=== PATIENT | male | born 1960 | race Caucasian/White ===

== ENCOUNTER 2019-01-02 21:20 | Observation (INO) | payer OTHER ==
[2019-01-02] MEDS ORDERED: Sodium Chloride 0.9% 2.5 ML Syringe FLUSH PRN (21:30)
[2019-01-02] MEDS ORDERED: Sodium Chloride 0.9% 10 ML Syringe FLUSH PRN (21:30)
[2019-01-02] MEDS ORDERED: Sodium Chloride 0.9% 1,000 ML IV SCH (21:30)
[2019-01-02] MEDS ORDERED: Ketorolac 30 MG/ML SDV IVPUSH ONE (21:30)
--- NOTE | 2019-01-02 21:32 | EDM.PDOC ---
ED HPI GENERAL MEDICAL PROBLEM - General Stated Complaint: CHEST PAIN Time Seen by Provider: 01/02/19 21:25 - History of Present Illness INITIAL COMMENTS - FREE TEXT/NARRATIVE: HISTORY AND PHYSICAL: History of present illness: Patient is a 58-year-old white male presents with shortness of breath 2 days states also had some right upper back pain and feels he may have strained himself and that might be the etiology of both back pain and shortness of breath he is a smoker he denies any history of known coronary artery disease denies prior stroke or other concern. This is worse with movement Review of systems: As per history of present illness and below otherwise all systems reviewed and negative. Past medical history: As per history of present illness and as reviewed below otherwise noncontributory. Surgical history: As per history of present illness and as reviewed below otherwise noncontributory. Social history: No reported history of drug or alcohol abuse. Family history: As per history of present illness and as reviewed below otherwise noncontributory. Physical exam: HEENT: Atraumatic, normocephalic, pupils reactive, negative for conjunctival pallor or scleral icterus, mucous membranes moist, throat clear, neck supple, nontender, trachea midline. Lungs: Slightly coarse bilaterally, breath sounds equal bilaterally, chest nontender. Heart: S1S2, regular, negative for clicks, rubs, or JVD. Abdomen: Soft, nondistended, nontender. Negative for masses or hepatosplenomegaly. Negative for costovertebral tenderness. Pelvis: Stable nontender. Genitourinary: Deferred. Rectal: Deferred. Extremities: Atraumatic, negative for cords or calf pain. Neurovascular unremarkable. Neuro: Awake, alert, oriented. Cranial nerves II through XII unremarkable. Cerebellum unremarkable. Motor and sensory unremarkable throughout. Exam nonfocal. Diagnostics: CBC CMP BMP d-dimer troponin chest x-ray EKG Therapeutics: IV O2 monitor Toradol 30 mg IV Impression: #1 dyspnea #2 upper back pain Definitive disposition and diagnosis as appropriate pending reevaluation and review of above. - Related Data Allergies Allergy/AdvReac Type Severity Reaction Status Date / Time No Known Allergies Allergy Verified 01/02/19 21:31 Home Meds: Home Meds . [No Known Home Meds] 01/02/19 [History] Past Medical History Other HEENT History: wears glasses Cardiovascular History: Reports: None Respiratory History: Reports: None Gastrointestinal History: Reports: None Genitourinary History: Reports: None Musculoskeletal History: Reports: Fracture Other Musculoskeletal History: hx of alfredo fx legs and fx foot Neurological History: Reports: Concussion Psychiatric History: Reports: None Endocrine/Metabolic History: Reports: Obesity/BMI 30+ Hematologic History: Reports: None Immunologic History: Reports: None Oncologic (Cancer) History: Reports: None Dermatologic History: Reports: None - Past Surgical History Head Surgeries/Procedures: Reports: None HEENT Surgical History: Reports: Tonsillectomy Cardiovascular Surgical History: Reports: None Respiratory Surgical History: Reports: None GI Surgical History: Reports: None Male Surgical History: Reports: None Endocrine Surgical History: Reports: None Neurological Surgical History: Reports: None Musculoskeletal Surgical History: Reports: None Oncologic Surgical History: Reports: None Dermatological Surgical History: Reports: None ED ROS GENERAL - Review of Systems Review Of Systems: ROS reveals no pertinent complaints other than HPI. ED EXAM, GENERAL - Physical Exam Exam: See Below (The dictation) Course - Vital Signs Last Recorded V/S: Last Vital Signs Temp 36.7 C 01/02/19 21:31 Pulse 85 01/02/19 23:49 Resp 18 01/02/19 23:49 BP 152/81 H 01/02/19 23:49 Pulse Ox 96 01/02/19 23:49 - Orders/Labs/Meds Orders: Active Orders 24 hr Category Date Time Status Cardiac Monitoring [RC] . DIRECTED Care 01/02/19 21:30 Active EKG Documentation Completion [RC] STAT Care 01/02/19 21:30 Active Oxygen Therapy, ED [RC] ASDIRECTED Care 01/02/19 21:30 Active Pulse Oximetry [RC] ASDIRECTED Care 01/02/19 21:30 Active Chest PE [Ang Chest] [CT] Stat Exams 01/02/19 23:12 Taken B-NATRIURETC PEPTD [REF] Stat Lab 01/02/19 21:30 Received Sodium Chloride 0.9% [Normal Saline] 1,000 ml Med 01/02/19 21:30 Active IV STAT Sodium Chloride 0.9% [Saline Flush] Med 01/02/19 21:30 Active 10 ml FLUSH ASDIRECTED PRN Sodium Chloride 0.9% [Saline Flush] Med 01/02/19 21:30 Active 2.5 ml FLUSH ASDIRECTED PRN Saline Lock Insert [OM.PC] Stat Oth 01/02/19 21:29 Ordered Medication Orders Sodium Chloride (Normal Saline) 1,000 mls @ 125 mls/hr IV STAT MARCELA Last Admin: 01/02/19 21:43 Dose: 125 mls/hr Sodium Chloride (Saline Flush) 10 ml FLUSH ASDIRECTED PRN PRN Reason: Keep Vein Open Sodium Chloride (Saline Flush) 2.5 ml FLUSH ASDIRECTED PRN PRN Reason: Keep Vein Open Labs: Laboratory Tests 01/02/19 01/02/19 01/02/19 Range/Units 21:30 21:30 21:30 WBC 13.26 H (4.0-11.0) K/uL RBC 5.21 (4.50-5.90) M/uL Hgb 16.8 (13.0-17.0) g/dL Hct 48.9 (38.0-50.0) % MCV 93.9 (80.0-98.0) fL MCH 32.2 H (27.0-32.0) pg MCHC 34.4 (31.0-37.0) g/dL RDW Std Deviation 45.2 (28.0-62.0) fl RDW Coeff of [place] 13 (11.0-15.0) % Plt Count 344 (150-400) K/uL MPV 10.00 (7.40-12.00) fL Neut % (Auto) 68.3 (48.0-80.0) % Lymph % (Auto) 16.7 (16.0-40.0) % [place] % (Auto) 13.1 (0.0-15.0) % Eos % (Auto) 1.7 (0.0-7.0) % Baso % (Auto) 0.2 (0.0-1.5) % Neut # (Auto) 9.1 H (1.4-5.7) K/uL Lymph # (Auto) 2.2 (0.6-2.4) K/uL [place] # (Auto) 1.7 H (0.0-0.8) K/uL Eos # (Auto) 0.2 (0.0-0.7) K/uL Baso # (Auto) 0.0 (0.0-0.1) K/uL Nucleated RBC % 0.0 /100WBC Nucleated RBCs # 0 K/uL INR 0.90 D-Dimer, Quantitative 1.34 H (0.0-0.50) mg/L FEU Sodium 140 (136-148) mmol/L Potassium 3.9 (3.5-5.1) mmol/L Chloride 102 (98-107) mmol/L Carbon Dioxide 28.6 (21.0-32.0) mmol/L BUN 13 (7.0-18.0) mg/dL Creatinine 1.1 (0.8-1.3) mg/dL Est Cr Clr Drug Dosing 71.41 mL/min Estimated GFR (MDRD) > 60.0 ml/min Glucose 121 H (74-106) mg/dL Calcium 9.1 (8.5-10.1) mg/dL Total Bilirubin 0.3 (0.2-1.0) mg/dL AST 14 L (15-37) IU/L ALT 26 (14-63) IU/L Alkaline Phosphatase 78 (46-116) U/L Troponin I < 0.050 (0.000-0.056) ng/mL Total Protein 7.5 (6.4-8.2) g/dL Albumin 3.4 (3.4-5.0) g/dL Globulin 4.1 H (2.6-4.0) g/dL Albumin/Globulin Ratio 0.8 L (0.9-1.6) Meds: Medications Generic Name Dose Route Start Last Admin Trade Name Freq PRN Reason Stop Dose Admin Sodium Chloride 1,000 mls @ 125 mls/hr 01/02/19 21:30 01/02/19 21:43 Normal Saline IV 125 mls/hr STAT MARCELA Administration Sodium Chloride 10 ml 01/02/19 21:30 Saline Flush FLUSH ASDIRECTED PRN Keep Vein Open Sodium Chloride 2.5 ml 01/02/19 21:30 Saline Flush FLUSH ASDIRECTED PRN Keep Vein Open Discontinued Medications Generic Name Dose Route Start Last Admin Trade Name Freq PRN Reason Stop Dose Admin Iopamidol 100 ml 01/02/19 23:09 01/02/19 23:24 Isovue-370 (76%) IVPUSH 01/02/19 23:10 100 ml ONETIME ONE Administration Ketorolac Tromethamine 30 mg 01/02/19 21:30 01/02/19 21:48 Toradol IVPUSH 01/02/19 21:31 30 mg ONETIME ONE Administration Departure - Departure Time of Disposition: 00:51 Disposition: Refer to Observation Condition: Good Clinical Impression: Pneumonia - Discharge Information Referrals: PCP,None [Primary Care Provider] - - My Orders Last 24 Hours: My Active Orders 01/02/19 21:29 Saline Lock Insert [OM.PC] Stat 01/02/19 21:30 Cardiac Monitoring [RC] . DIRECTED EKG Documentation Completion [RC] STAT Oxygen Therapy, ED [RC] ASDIRECTED Pulse Oximetry [RC] ASDIRECTED B-NATRIURETC PEPTD [REF] Stat Sodium Chloride 0.9% [Normal Saline] 1,000 ml IV STAT Sodium Chloride 0.9% [Saline Flush] 10 ml FLUSH ASDIRECTED PRN Sodium Chloride 0.9% [Saline Flush] 2.5 ml FLUSH ASDIRECTED PRN 01/02/19 23:12 Chest PE [Ang Chest] [CT] Stat - Assessment/Plan Last 24 Hours: My Active Orders 01/02/19 21:29 Saline Lock Insert [OM.PC] Stat 01/02/19 21:30 Cardiac Monitoring [RC] . DIRECTED EKG Documentation Completion [RC] STAT Oxygen Therapy, ED [RC] ASDIRECTED Pulse Oximetry [RC] ASDIRECTED B-NATRIURETC PEPTD [REF] Stat Sodium Chloride 0.9% [Normal Saline] 1,000 ml IV STAT Sodium Chloride 0.9% [Saline Flush] 10 ml FLUSH ASDIRECTED PRN Sodium Chloride 0.9% [Saline Flush] 2.5 ml FLUSH ASDIRECTED PRN 01/02/19 23:12 Chest PE [Ang Chest] [CT] Stat
[2019-01-02 22:00] LABS: CHLORIDE,CL 102 mmol/L (98-107); SODIUM,NA 140 mmol/L (136-148)
--- NOTE | 2019-01-02 22:23 | CR ---
INDICATION: pain/sob COMPARISON: None. FINDINGS: Single portable AP view of the chest demonstrates dense consolidation in the right lower lung. Additional linear opacity in the right mid lung, likely scarring. Patchy densities at the left lung base, consistent with atelectasis. Cardiomediastinal silhouette is obscured. No pneumothorax. Visualized osseous structures are unremarkable. IMPRESSION: Dense consolidation in the right lower lung. Differential considerations include atelectasis and pneumonia with an associated effusion. Dictated by Kalpesh Howard MD @ 01/02/2019 10:22:00 PM Dictated by: Kalpesh Howard MD @ 01/02/2019 22:22:07 (Electronically Signed)
[2019-01-02] MEDS ORDERED: Iopamidol 755 Mg/ML 100 ML Bottle IVPUSH ONE (23:09)
[2019-01-03] MEDS ORDERED: cefTRIAXone 1 GM in Premix Bag 1 BAG IV ONE (00:52)
[2019-01-03] MEDS ORDERED: Azithromycin 500 MG in Sodium Chloride 0.9% 250 ML IV ONE (00:54)
[2019-01-03] MEDS ORDERED: Ondansetron 4 MG/2 ML SDV IVPUSH PRN (01:53)
[2019-01-03] MEDS ORDERED: Acetaminophen 325 MG Tab PO PRN (01:53)
[2019-01-03 06:46] LABS: CHLORIDE,CL 104 mmol/L (98-107); SODIUM,NA 140 mmol/L (136-148)
--- NOTE | 2019-01-03 07:58 | PCM.HP ---
H&P History of Present Illness - General Date of Service: 01/03/19 Admit Problem/Dx: Admission Diagnosis/Problem Admission Diagnosis/Problem Pneumonia Source of Information: Patient History Limitations: Reports: No Limitations - History of Present Illness Initial Comments - Free Text/Narative: This 58 year old male with pmh of tobacco abuse presented to the ED with complaints of R sided upper back pain, coughing and not feeling well. He reports about 2 days ago he felt like his R lung was full and started coughing. He has productive cough, sinus congestion and shortness of breath. He denies fevers or chills. No chest pain or palpitations. no abdominal pain or urinary concerns. No black or bloody BMs. he reports when he tried doing lung exercises to loose whatever was in his lungs, he then started experiencing the back pain. He reports he was recently seen by a provider for his new onset headaches and he was also at that time place on antibiotics, but doesn't remember why or what kind. He is a smoker, 1 ppd, rare alcohol use and no recreational drug use. He denies HTN or DM, but reports his BP has elevated from previous times. he reports in the last year he has put on at least 15 lbs after not working in an active job. In the ED leukocytosis 13, 260. BMP WNL, BS slightly elevated 120s. D Dimer 1.34. BP 130-150/70-80s. RA oxygen, 94%. CXR dense consolidation RUL with possible effusion. CT angion obtained due to d dimer elevated, this was non diagnostic for PE due to imaging and contrast timing, patchy atelectasis and RLL infiltrate with small R sided pleural effusion. He was treated with Toradol for pain along with Rocephin and Azithromycin for CAP. He will be admitted observation for CAP. PCP, Dr Garcia Was recently on Azithromyin, 12/03 for sinus congestion and headache Right Back Pain Score (Numeric/FACES): 10 - Related Data Allergies/Adverse Reactions: Allergies Allergy/AdvReac Type Severity Reaction Status Date / Time No Known Allergies Allergy Verified 01/02/19 21:31 Home Medications: Home Meds . [No Known Home Meds] 01/02/19 [History] Past Medical History Other HEENT History: wears glasses Cardiovascular History: Reports: Hypertension (was on meds in the past, but off after losing weight. Now he has noticed BPs are up again after weight gain.). Denies: Afib, Blood Clots/VTE/DVT, CAD, [place] Respiratory History: Reports: Sleep Apnea (has pending sleep study ordered by PCP due to new headaches.). Denies: Asthma, COPD, PE Gastrointestinal History: Reports: None. Denies: GERD Genitourinary History: Reports: None Musculoskeletal History: Reports: Fracture Other Musculoskeletal History: hx of alfredo fx legs and fx foot Neurological History: Reports: Concussion Psychiatric History: Reports: None Endocrine/Metabolic History: Reports: Obesity/BMI 30+. Denies: Diabetes, Type II, Hypothyroidism Hematologic History: Reports: None Immunologic History: Reports: None Oncologic (Cancer) History: Reports: None Dermatologic History: Reports: None - Infectious Disease History Infectious Disease History: Reports: Chicken Pox - Past Surgical History Head Surgeries/Procedures: Reports: None HEENT Surgical History: Reports: Tonsillectomy Cardiovascular Surgical History: Reports: None Respiratory Surgical History: Reports: None GI Surgical History: Reports: None Male Surgical History: Reports: None Endocrine Surgical History: Reports: None Neurological Surgical History: Reports: None Musculoskeletal Surgical History: Reports: None Oncologic Surgical History: Reports: None Dermatological Surgical History: Reports: Other (See Below) (lipoma removal) Social & Family History - Family History Family Medical History: Noncontributory - Tobacco Use Smoking Status *Q: Current Every Day Smoker Years of Tobacco use: 40 Packs/Tins Daily: 1 Used Tobacco, but Quit: No Smoking Cessation Information Provided To Patient: Yes - Caffeine Use Caffeine Use: Reports: Coffee - Alcohol Use Days Per Week of Alcohol Use: 1 Number of Drinks Per Day: 3 Total Drinks Per Week: 3 - Recreational Drug Use Recreational Drug Use: No - Living Situation & Occupation Living situation: Reports: Occupation: Employed H&P Review of Systems - Review of Systems: Review Of Systems: See Below General: Reports: Malaise, Fatigue. Denies: Fever, Chills HEENT: Reports: Headaches (new onset, past 3 months) Pulmonary: Reports: No Symptoms, Shortness of Breath, Wheezing, Pleuritic Chest Pain, Cough, Sputum. Denies: Hemoptysis Cardiovascular: Reports: No Symptoms. Denies: Chest Pain, Edema Gastrointestinal: Reports: No Symptoms. Denies: Abdominal Pain, Black Stool, Bloody Stool, Nausea, Vomiting Genitourinary: Reports: No Symptoms. Denies: Dysuria, Frequency, Burning Musculoskeletal: Reports: No Symptoms. Denies: Neck Pain Psychiatric: Reports: No Symptoms Neurological: Reports: No Symptoms Hematologic/Lymphatic: Reports: No Symptoms Immunologic: Reports: No Symptoms Exam - Exam Exam: See Below - Vital Signs Vital Signs: Last Vital Signs Temp 98.2 F 01/03/19 04:00 Pulse 90 01/03/19 04:00 Resp 20 01/03/19 04:00 BP 153/88 H 01/03/19 04:00 Pulse Ox 94 L 01/03/19 04:00 Weight: 96.207 kg - Exam General: Alert, Oriented, Cooperative HEENT: Conjunctiva Clear, Mucosa Moist & [place], Pupils Equal Neck: Supple, Trachea Midline Lungs: Decreased Breath Sounds (R lung olson), Wheezing. No: Normal Respiratory Effort (dyspnea with dpeech) Cardiovascular: Regular Rate, Regular Rhythm, Normal S1, Normal S2 GI/Abdominal Exam: Normal Bowel Sounds, Soft, Non-Tender, No Organomegaly, No Mass Extremities: Normal Inspection, Normal Range of Motion, Non-Tender, No Pedal Edema Neuro Extensive - Mental Status: Alert, Oriented x3 Neuro Extensive - Motor, Sensory, Reflexes: CN II-XII Intact Psychiatric: Alert, Normal Affect, Normal Mood - Patient Data Lab Results Last 24 hrs: Laboratory Results - last 24 hr 01/02/19 01/02/19 01/02/19 Range/Units 21:30 21:30 21:30 WBC 13.26 H (4.0-11.0) K/uL RBC 5.21 (4.50-5.90) M/uL Hgb 16.8 (13.0-17.0) g/dL Hct 48.9 (38.0-50.0) % MCV 93.9 (80.0-98.0) fL MCH 32.2 H (27.0-32.0) pg MCHC 34.4 (31.0-37.0) g/dL RDW Std Deviation 45.2 (28.0-62.0) fl RDW Coeff of [place] 13 (11.0-15.0) % Plt Count 344 (150-400) K/uL MPV 10.00 (7.40-12.00) fL Neut % (Auto) 68.3 (48.0-80.0) % Lymph % (Auto) 16.7 (16.0-40.0) % [place] % (Auto) 13.1 (0.0-15.0) % Eos % (Auto) 1.7 (0.0-7.0) % Baso % (Auto) 0.2 (0.0-1.5) % Neut # (Auto) 9.1 H (1.4-5.7) K/uL Lymph # (Auto) 2.2 (0.6-2.4) K/uL [place] # (Auto) 1.7 H (0.0-0.8) K/uL Eos # (Auto) 0.2 (0.0-0.7) K/uL Baso # (Auto) 0.0 (0.0-0.1) K/uL Nucleated RBC % 0.0 /100WBC Nucleated RBCs # 0 K/uL INR 0.90 D-Dimer, Quantitative 1.34 H (0.0-0.50) mg/L FEU Sodium 140 (136-148) mmol/L Potassium 3.9 (3.5-5.1) mmol/L Chloride 102 (98-107) mmol/L Carbon Dioxide 28.6 (21.0-32.0) mmol/L BUN 13 (7.0-18.0) mg/dL Creatinine 1.1 (0.8-1.3) mg/dL Est Cr Clr Drug Dosing 71.41 mL/min Estimated GFR (MDRD) > 60.0 ml/min Glucose 121 H (74-106) mg/dL Calcium 9.1 (8.5-10.1) mg/dL Total Bilirubin 0.3 (0.2-1.0) mg/dL AST 14 L (15-37) IU/L ALT 26 (14-63) IU/L Alkaline Phosphatase 78 (46-116) U/L Troponin I < 0.050 (0.000-0.056) ng/mL Total Protein 7.5 (6.4-8.2) g/dL Albumin 3.4 (3.4-5.0) g/dL Globulin 4.1 H (2.6-4.0) g/dL Albumin/Globulin Ratio 0.8 L (0.9-1.6) 01/03/19 01/03/19 Range/Units 05:25 05:25 WBC 11.25 H (4.0-11.0) K/uL RBC 4.78 (4.50-5.90) M/uL Hgb 15.3 (13.0-17.0) g/dL Hct 44.9 (38.0-50.0) % MCV 93.9 (80.0-98.0) fL MCH 32.0 (27.0-32.0) pg MCHC 34.1 (31.0-37.0) g/dL RDW Std Deviation 45.7 (28.0-62.0) fl RDW Coeff of [place] 13 (11.0-15.0) % Plt Count 362 (150-400) K/uL MPV 10.10 (7.40-12.00) fL Neut % (Auto) 66.7 (48.0-80.0) % Lymph % (Auto) 17.4 (16.0-40.0) % [place] % (Auto) 13.9 (0.0-15.0) % Eos % (Auto) 1.8 (0.0-7.0) % Baso % (Auto) 0.2 (0.0-1.5) % Neut # (Auto) 7.5 H (1.4-5.7) K/uL Lymph # (Auto) 2.0 (0.6-2.4) K/uL [place] # (Auto) 1.6 H (0.0-0.8) K/uL Eos # (Auto) 0.2 (0.0-0.7) K/uL Baso # (Auto) 0.0 (0.0-0.1) K/uL Nucleated RBC % 0.0 /100WBC Nucleated RBCs # 0 K/uL INR D-Dimer, Quantitative (0.0-0.50) mg/L FEU Sodium 140 (136-148) mmol/L Potassium 3.8 (3.5-5.1) mmol/L Chloride 104 (98-107) mmol/L Carbon Dioxide 28.4 (21.0-32.0) mmol/L BUN 12 (7.0-18.0) mg/dL Creatinine 0.9 (0.8-1.3) mg/dL Est Cr Clr Drug Dosing 90.12 mL/min Estimated GFR (MDRD) > 60.0 ml/min Glucose 108 H (74-106) mg/dL Calcium 8.6 (8.5-10.1) mg/dL Total Bilirubin (0.2-1.0) mg/dL AST (15-37) IU/L ALT (14-63) IU/L Alkaline Phosphatase (46-116) U/L Troponin I (0.000-0.056) ng/mL Total Protein (6.4-8.2) g/dL Albumin (3.4-5.0) g/dL Globulin (2.6-4.0) g/dL Albumin/Globulin Ratio (0.9-1.6) Result Diagrams: 01/03/19 05:25 01/03/19 05:25 Donte Results Last 24 hrs: Microbiology 01/03/19 01:19 Anaerobic Blood Culture - Final Blood - Venous - Lab Draw - Problem List (1) Community acquired pneumonia SNOMED Code(s): 788293424 ICD Code: J18.9 - PNEUMONIA, UNSPECIFIED ORGANISM Status: Acute Current Visit: Yes Qualifiers: Laterality: right Lung location: unspecified part of lung Qualified Code( s): J18.9 - Pneumonia, unspecified organism (2) Smoker SNOMED Code(s): 94821665 ICD Code: F17.200 - NICOTINE DEPENDENCE, UNSPECIFIED, UNCOMPLICATED Status : Acute Current Visit: Yes Problem List Initiated/Reviewed/Updated: Yes Orders Last 24hrs: Active Orders 24 hr Category Date Time Status Patient Status [ADT] Stat ADT 01/03/19 00:54 Active Cardiac Monitoring [RC] . DIRECTED Care 01/02/19 21:30 Active EKG Documentation Completion [RC] STAT Care 01/02/19 21:30 Active Oxygen Therapy, ED [RC] ASDIRECTED Care 01/02/19 21:30 Active Pulse Oximetry [RC] ASDIRECTED Care 01/02/19 21:30 Active Regular Diet [DIET] Diet 01/03/19 Breakfast Active Chest PE [Ang Chest] [CT] Stat Exams 01/02/19 23:12 Taken B-NATRIURETC PEPTD [REF] Stat Lab 01/02/19 21:30 Received CULTURE BLOOD [BC] Stat Lab 01/03/19 01:12 Received CULTURE BLOOD [BC] Stat Lab 01/03/19 01:19 Results Acetaminophen [Tylenol] Med 01/03/19 01:53 Active 650 mg PO Q6H PRN Azithromycin [Zithromax] 500 mg Med 01/04/19 02:00 Active Sodium Chloride 0.9% [Normal Saline] 250 ml IV Q24H Ondansetron [Zofran] Med 01/03/19 01:53 Active 4 mg IVPUSH Q4H PRN Sodium Chloride 0.9% [Normal Saline] 1,000 ml Med 01/02/19 21:30 Active IV STAT Sodium Chloride 0.9% [Saline Flush] Med 01/02/19 21:30 Active 10 ml FLUSH ASDIRECTED PRN Sodium Chloride 0.9% [Saline Flush] Med 01/02/19 21:30 Active 2.5 ml FLUSH ASDIRECTED PRN cefTRIAXone [Rocephin] 1 gm Med 01/04/19 00:00 Active Sodium Chloride 0.9% [Normal Saline] 50 ml IV Q24H Blood Culture x2 Reflex Set [OM.PC] Stat Oth 01/03/19 00:52 Ordered Saline Lock Insert [OM.PC] Stat Oth 01/02/19 21:29 Ordered Medication Orders Acetaminophen (Tylenol) 650 mg PO Q6H PRN PRN Reason: Pain Sodium Chloride (Normal Saline) 1,000 mls @ 125 mls/hr IV STAT MARCELA Last Admin: 01/02/19 21:43 Dose: 125 mls/hr Azithromycin 500 mg/ Sodium (Chloride) 250 mls @ 250 mls/hr IV Q24H MARCELA Ceftriaxone Sodium 1 gm/ (Sodium Chloride) 50 mls @ 100 mls/hr IV Q24H MARCELA Ondansetron HCl (Zofran) 4 mg IVPUSH Q4H PRN PRN Reason: Nausea/Vomiting Sodium Chloride (Saline Flush) 10 ml FLUSH ASDIRECTED PRN PRN Reason: Keep Vein Open Sodium Chloride (Saline Flush) 2.5 ml FLUSH ASDIRECTED PRN PRN Reason: Keep Vein Open Assessment/Plan Comment:: This 58 year old male admitted with CAP 1. CAP: BC pending. Continue Azithromycin and Rocephin. Attempt to obtain sputum culture. Smoking cessation highly encouraged. he rpeorts having tried patches and Chantix, but didn't work. Denies wanting anything currently. Will also add Duonebs and encourage IS use. No oxygen use. PE unlikely, no risk factors currently. Monitor. VTE prophylaxis: Lovenox. Dispo: 1-2 days pending improvement.
[2019-01-03] MEDS ORDERED: Docusate Sodium 100 MG Cap PO PRN (08:52)
[2019-01-03] MEDS: Albuterol/Ipratropium 3.0-0.5 MG/3 ML Neb Soln NEB SCH ×4 (09:20→23:03)
[2019-01-03] MEDS: Enoxaparin 40 MG/0.4 ML Syringe SUBCUT SCH (09:47)
[2019-01-03] MEDS ORDERED: Azithromycin 250 MG Tab PO SCH (23:00)
[2019-01-04] MEDS ORDERED: cefTRIAXone 1 GM in Premix Bag 1 BAG IV SCH ×2
[2019-01-04] MEDS ORDERED: Azithromycin 500 MG in Sodium Chloride 0.9% 250 ML IV SCH (02:00)
[2019-01-04 05:54] LABS: CHLORIDE,CL 106 mmol/L (98-107); SODIUM,NA 141 mmol/L (136-148)
[2019-01-04] MEDS: Albuterol/Ipratropium 3.0-0.5 MG/3 ML Neb Soln NEB SCH (06:45)
--- NOTE | 2019-01-04 07:39 | CT ---
EXAM DATE: 01/03/19 PATIENT'S AGE: 58 Patient: BECKY LEVINE Facility: [facility] Site . Site : 1960 Study: CT-Chest Angio-01/02/2019 11:37:28 PM Ordering Physician: Eddie Chappell Final Report: INDICATION: Chest pain, shortness of breath, elevated D-dimer TECHNIQUE: CT chest pulmonary PE protocol acquired with 100 cc Isovue 370 IV contrast. COMPARISON: Chest radiograph from same date FINDINGS: Cardiovascular structures: The study is nondiagnostic for evaluation of pulmonary embolus due to suboptimal opacification of the pulmonary arteries. Normal cardiac size. No sign of aneurysm in the thoracic aorta. Mediastinum and malcom: No mass or adenopathy. Calcified right hilar lymph nodes. Lungs: Patchy opacity in the right lower lobe. Scattered linear atelectasis bilaterally. Pleura and pericardium: Small right pleural effusion. Chest wall and axilla: No mass or adenopathy. Upper abdomen: Unremarkable. Bones: No significant findings. IMPRESSION: The study is nondiagnostic for evaluation of pulmonary embolus due to suboptimal opacification of the pulmonary arteries. Patchy atelectasis or infiltrate in the right lower lobe with small right pleural effusion. Please note that all CT scans at this facility use dose modulation, iterative reconstruction, and/or weight-based dosing when appropriate to reduce radiation dose to as low as reasonably achievable. Dictated by Dipika Stephen MD @ Jan 03 2019 12:38AM Signed by: Dipika Stephen MD @01/03/2019 12:39:00 AM (Electronic Signature) Report Signed by Proxy. [facility] HOSPITALCullen
[2019-01-04] MEDS: Enoxaparin 40 MG/0.4 ML Syringe SUBCUT SCH (09:18)
[2019-01-04 09:25] VITALS: BP 126/77
--- NOTE | 2019-01-04 10:24 | PCM.DCSUM1 ---
Discharge Summary - Hospital Course Brief History: This 58 year old male with pmh of tobacco abuse presented to the ED with complaints of R sided upper back pain, coughing and not feeling well. He reports about 2 days ago he felt like his R lung was full and started coughing. He has productive cough, sinus congestion and shortness of breath. He denies fevers or chills. No chest pain or palpitations. no abdominal pain or urinary concerns. No black or bloody BMs. he reports when he tried doing lung exercises to loose whatever was in his lungs, he then started experiencing the back pain. He reports he was recently seen by a provider for his new onset headaches and he was also at that time place on antibiotics, but doesn't remember why or what kind. He is a smoker, 1 ppd, rare alcohol use and no recreational drug use. He denies HTN or DM, but reports his BP has elevated from previous times. he reports in the last year he has put on at least 15 lbs after not working in an active job. In the ED leukocytosis 13, 260. BMP WNL, BS slightly elevated 120s. D Dimer 1.34. BP 130-150/70-80s. RA oxygen, 94%. CXR dense consolidation RUL with possible effusion. CT angion obtained due to d dimer elevated, this was non diagnostic for PE due to imaging and contrast timing, patchy atelectasis and RLL infiltrate with small R sided pleural effusion. He was treated with Toradol for pain along with Rocephin and Azithromycin for CAP. He will be admitted observation for CAP. PCP, Dr Garcia Diagnosis: Stroke: No - Discharge Data Discharge Date: 01/04/19 Discharge Disposition: Home, Self-Care 01 Condition: Good - Discharge Diagnosis/Problem(s) (1) Community acquired pneumonia SNOMED Code(s): 261355877 ICD Code: J18.9 - PNEUMONIA, UNSPECIFIED ORGANISM Status: Acute Qualifiers: Laterality: right Lung location: unspecified part of lung Qualified Code( s): J18.9 - Pneumonia, unspecified organism (2) Smoker SNOMED Code(s): 00014192 ICD Code: F17.200 - NICOTINE DEPENDENCE, UNSPECIFIED, UNCOMPLICATED Status : Acute - Patient Instructions Diet: Regular Diet as Tolerated Activity: As Tolerated Showering/Bathing: May Shower Notify Provider of: Fever, Increased Pain, Swelling and Redness, Drainage, Nausea and/or Vomiting - Discharge Plan *PRESCRIPTION DRUG MONITORING PROGRAM REVIEWED*: Not Applicable *COPY OF PRESCRIPTION DRUG MONITORING REPORT IN PATIENT STEPHANIE: Not Applicable Prescriptions/Med Rec: Azithromycin [Zithromax] 500 mg PO Q24H #10 tablet Cefdinir [Omnicef] 300 mg PO BID #10 cap Home Medications: Home Meds Acetaminophen [Tylenol] 650 mg PO Q6H PRN tablet 01/04/19 [Rx] Azithromycin [Zithromax] 500 mg PO Q24H #10 tablet 01/04/19 [Rx] Cefdinir [Omnicef] 300 mg PO BID #10 cap 01/04/19 [Rx] Patient Handouts: Cefdinir capsules, Azithromycin tablets, Community-Acquired Pneumonia, Adult, [id number] Referrals: Kareem Crowlel MD [Physician] - 01/11/19 9:00 am - Discharge Summary/Plan Comment DC Time >30 min.: No Discharge Summary/Plan Comment: Admitting diagnoses: CAP Discharge Diagnoses CAP Other PMH Smoker Remi was admitted and treated for CAP with Rocephin and Azithromycin. He improved and was feeling much better today. Leukocytosis remained slight, 12, 000 today, but he was eager to go home. BC negative. Sputum culture pending. He will be discharged home today on RA with Azithromycin and Cefdinir for 5 more days for CAP. He is to follow up with PCP in 1 week and to have BP evaluated. Opted not to start antihypertensive medication during acute illness, though with his weight gain BP has elevated back and may likely need his antihypertensive restarted that he stopped when he lost weight. He is to return to ED or clinic is concerns should arise. Again highly encouraged smoking cessation. - General Info Date of Service: 01/04/19 Admission Dx/Problem (Free Text: Admission Diagnosis/Problem Admission Diagnosis/Problem Pneumonia Subjective Update: Doing well today, alert and talkative. No chest pain or SOB. He reports mild sinus congestion still but feeling much better today. Eager for discharge home. Functional Status: Reports: Pain Controlled, Tolerating Diet, Ambulating, Urinating - Review of Systems General: Reports: No Symptoms. Denies: Fever, Weakness HEENT: Reports: Sinus Congestion. Denies: Headaches, Sore Throat Pulmonary: Reports: Cough. Denies: Shortness of Breath, Sputum, Hemoptysis, Wheezing Cardiovascular: Reports: No Symptoms. Denies: Chest Pain Gastrointestinal: Reports: No Symptoms. Denies: Abdominal Pain, Nausea, Vomiting Genitourinary: Reports: No Symptoms Musculoskeletal: Reports: No Symptoms Skin: Reports: No Symptoms Neurological: Reports: No Symptoms Psychiatric: Reports: No Symptoms - Patient Data Vitals - Most Recent: Last Vital Signs Temp 97.4 F 01/04/19 08:00 Pulse 100 01/04/19 08:00 Resp 18 01/04/19 08:00 BP 126/77 01/04/19 08:00 Pulse Ox 93 L 01/04/19 08:00 Weight - Most Recent: 96.207 kg I&O - Last 24 hours: Intake & Output 01/03/19 01/04/19 01/04/19 22:59 06:59 14:59 Intake Total 300 400 240 Output Total 750 600 Balance -450 -200 240 Lab Results - Last 24 hrs: Laboratory Results - last 24 hr 01/02/19 01/04/19 01/04/19 Range/Units 21:30 05:15 05:15 WBC 12.30 H (4.0-11.0) K/uL RBC 4.79 (4.50-5.90) M/uL Hgb 15.1 (13.0-17.0) g/dL Hct 44.9 (38.0-50.0) % MCV 93.7 (80.0-98.0) fL MCH 31.5 (27.0-32.0) pg MCHC 33.6 (31.0-37.0) g/dL RDW Std Deviation 45.5 (28.0-62.0) fl RDW Coeff of [place] 13 (11.0-15.0) % Plt Count 385 (150-400) K/uL MPV 10.00 (7.40-12.00) fL Neut % (Auto) 69.8 (48.0-80.0) % Lymph % (Auto) 18.2 (16.0-40.0) % [place] % (Auto) 10.3 (0.0-15.0) % Eos % (Auto) 1.5 (0.0-7.0) % Baso % (Auto) 0.2 (0.0-1.5) % Neut # (Auto) 8.6 H (1.4-5.7) K/uL Lymph # (Auto) 2.2 (0.6-2.4) K/uL [place] # (Auto) 1.3 H (0.0-0.8) K/uL Eos # (Auto) 0.2 (0.0-0.7) K/uL Baso # (Auto) 0.0 (0.0-0.1) K/uL Nucleated RBC % 0.0 /100WBC Nucleated RBCs # 0 K/uL Sodium 141 (136-148) mmol/L Potassium 4.0 (3.5-5.1) mmol/L Chloride 106 (98-107) mmol/L Carbon Dioxide 25.4 (21.0-32.0) mmol/L BUN 12 (7.0-18.0) mg/dL Creatinine 0.9 (0.8-1.3) mg/dL Est Cr Clr Drug Dosing 90.12 mL/min Estimated GFR (MDRD) > 60.0 ml/min Glucose 100 (74-106) mg/dL Calcium 9.0 (8.5-10.1) mg/dL B-Natriuretic Peptide 13 (<100) PG/ML JUDIE Results - Last 24 hrs: Microbiology 01/03/19 01:19 Aerobic Blood Culture - Preliminary Blood - Venous - Lab Draw NO GROWTH AFTER 1 DAY Anaerobic Blood Culture - Final 01/03/19 01:12 Aerobic Blood Culture - Preliminary Blood - Venous NO GROWTH AFTER 1 DAY Anaerobic Blood Culture - Preliminary NO GROWTH AFTER 1 DAY 01/03/19 09:50 Gram Stain - Preliminary Sputum - Expectorated Med Orders - Current: Current Medications Acetaminophen (Tylenol) 650 mg PO Q6H PRN PRN Reason: Pain Albuterol/Ipratropium (Duoneb 3.0-0.5 Mg/3 Ml) 3 ml NEB Q6HRRT [facility] Last Admin: 01/04/19 06:45 Dose: 3 ml Azithromycin (Zithromax) 500 mg PO Q24H [facility] Last Admin: 01/03/19 23:03 Dose: 500 mg Docusate Sodium (Colace) 100 mg PO BID PRN PRN Reason: Constipation Enoxaparin Sodium (Lovenox) 40 mg SUBCUT Q24H [facility] Last Admin: 01/04/19 09:18 Dose: 40 mg Ceftriaxone Sodium/Dextrose 1 (gm/ Premix) 50 mls @ 100 mls/hr IV Q24H [facility] Last Admin: 01/03/19 23:03 Dose: 100 mls/hr Ondansetron HCl (Zofran) 4 mg IVPUSH Q4H PRN PRN Reason: Nausea/Vomiting Sodium Chloride (Saline Flush) 10 ml FLUSH ASDIRECTED PRN PRN Reason: Keep Vein Open Sodium Chloride (Saline Flush) 2.5 ml FLUSH ASDIRECTED PRN PRN Reason: Keep Vein Open Discontinued Medications Sodium Chloride (Normal Saline) 1,000 mls @ 125 mls/hr IV STAT [facility] Last Admin: 01/02/19 21:43 Dose: 125 mls/hr Azithromycin 500 mg/ Sodium (Chloride) 250 mls @ 250 mls/hr IV ONETIME ONE Stop: 01/03/19 01:53 Last Admin: 01/03/19 01:58 Dose: 250 mls/hr Ceftriaxone Sodium/Dextrose 1 (gm/ Premix) 50 mls @ 100 mls/hr IV ONETIME ONE Stop: 01/03/19 01:21 Last Admin: 01/03/19 01:14 Dose: 100 mls/hr Azithromycin 500 mg/ Sodium (Chloride) 250 mls @ 250 mls/hr IV Q24H [facility] Iopamidol (Isovue-370 (76%)) 100 ml IVPUSH ONETIME ONE Stop: 01/02/19 23:10 Last Admin: 01/02/19 23:24 Dose: 100 ml Ketorolac Tromethamine (Toradol) 30 mg IVPUSH ONETIME ONE Stop: 01/02/19 21:31 Last Admin: 01/02/19 21:48 Dose: 30 mg - Exam Quality Assessment: Denies: Supplemental Oxygen General: Reports: Alert, Oriented, Cooperative Lungs: Reports: Clear to Auscultation, Normal Respiratory Effort Cardiovascular: Reports: Regular Rate, Regular Rhythm, No Murmurs GI/Abdominal Exam: Normal Bowel Sounds, Soft, Non-Tender Extremities: Normal Inspection, Normal Range of Motion, Non-Tender, No Pedal Edema Neurological: Reports: No New Focal Deficit Psy/Mental Status: Reports: Alert, Normal Affect, Normal Mood
== END 2019-01-04 12:20 | disposition home or self-care (01) ==
LOC: MW.ED 21:20 → MW.MS 01-03 00:54
PROVIDERS: ADMIT Internal Medicine; ATTEND Internal Medicine
DX: J18.9 Pneumonia, unspecified organism (principal); F17.210 Nicotine dependence, cigarettes, uncomplicated; R03.0 Elevated blood-pressure reading, without diagnosis of hypertension; G47.30 Sleep apnea, unspecified; E66.9 Obesity, unspecified; Z68.30 Body mass index [BMI] 30.0-30.9, adult
CPT/HCPCS: 36415; 71045; 71275; 80048; 80053; 83036; 83880; 84484; 85025; 85379; 85610; 87040; 87070; 87205; 93005; 94640; 96361; 96365; 96372; 96375; 96376; 99285; A4217; A9270; G0378; J0456; J0696; J1650; J1885; J7040; J7050; Q9967; J7620-GY

== ENCOUNTER 2019-01-14 20:57 | Emergency (ER) | payer OTHER ==
[2019-01-14] MEDS ORDERED: Sodium Chloride 0.9% 1,000 ML IV ONE (21:19)
[2019-01-14] MEDS ORDERED: methylPREDNISolone Sodium Succinate 125 MG/2 ML SDV IVPUSH ONE (21:20)
[2019-01-14] MEDS ORDERED: Albuterol/Ipratropium 3.0-0.5 MG/3 ML Neb Soln NEB ONE (21:20)
--- NOTE | 2019-01-14 21:34 | EDM.PDOC ---
<EdwardsDenice - Last Filed: 01/14/19 23:21> ED HPI GENERAL MEDICAL PROBLEM - General Chief Complaint: Respiratory Problem Stated Complaint: SHORTNESS OF BREATH Time Seen by Provider: 01/14/19 20:59 - History of Present Illness INITIAL COMMENTS - FREE TEXT/NARRATIVE: This Dr. Edwards dictating addendum note as well as I have assumed care of this case at 10 PM. I reviewed the last admission where the patient presented with similar complaints of right-sided upper back pain coughing and malaise. He had a productive cough and sinus congestion as well as shortness of breath and was admitted to the hospital as a community-acquired pneumonia. He had a workup consisting of blood work a chest x-ray, which said that there was a dense consolidation in the right upper lobe and a possible effusion and a CT injury was also performed. The CT showed a right lower lobe infiltrate with a small right-sided pleural effusion. He followed up in the clinic for the instructions and finished his medications from home but represented with similar symptoms and findings as his prior admission. On his last admission his blood cultures were negative and his DC O2 saturation was 93%. When the patient presented to triage she was tachycardic and somewhat hypoxic and did have an unwell appearance but was speaking clearly and nontoxic. His WBC count is 16 but there is no left shift and his lactate is normal. A CT injury of the chest and CT scan of the abdomen and pelvis was performed because today he had presented more with both right chest and right abdominal pain. I'm currently awaiting those test results. I reviewed all the testing results and have discussed them with patient and significant other bedside. I've expressed my concern about the significant twisting frame changer the last 1 week in this pleural effusion and the possible loculations. We will give a dose of Zosyn and clindamycin and he currently is not asking for pain medication and has been feeling short of breath on oxygen therapy. He is aware of his need for transfer to [facility] for definitive care and treatment of this progression of his problem. CT scan from last week as well as today were sent to [facility] and this case was discussed with Dr. Fink at [address] Fink except the patient and we will arrange for ambulance transfer. - Related Data Allergies Allergy/AdvReac Type Severity Reaction Status Date / Time No Known Allergies Allergy Verified 01/14/19 21:17 Home Meds: Home Meds . [No Known Home Meds] 01/14/19 [History] ED ROS GENERAL - Review of Systems Review Of Systems: ROS reveals no pertinent complaints other than HPI. ED EXAM, GENERAL - Physical Exam Exam: See Below Course - Vital Signs Last Recorded V/S: Last Vital Signs Temp 35.9 C 01/14/19 23:50 Pulse 94 01/14/19 23:50 Resp 20 01/14/19 23:50 BP 132/74 01/14/19 23:50 Pulse Ox 95 01/14/19 23:50 - Orders/Labs/Meds Orders: Active Orders 24 hr Category Date Time Status EKG Documentation Completion [RC] STAT Care 01/14/19 21:07 Active RT Aerosol Therapy [RC] ASDIRECTED Care 01/14/19 21:21 Active CULTURE BLOOD [BC] Stat Lab 01/14/19 21:40 Received CULTURE BLOOD [BC] Stat Lab 01/14/19 21:51 Received Blood Culture x2 Reflex Set [OM.PC] Stat Oth 01/14/19 21:32 Ordered Labs: Laboratory Tests 01/14/19 01/14/19 01/14/19 Range/Units 21:10 21:10 21:10 WBC 16.02 H (4.0-11.0) K/uL RBC 4.80 (4.50-5.90) M/uL Hgb 15.3 (13.0-17.0) g/dL Hct 44.4 (38.0-50.0) % MCV 92.5 (80.0-98.0) fL MCH 31.9 (27.0-32.0) pg MCHC 34.5 (31.0-37.0) g/dL RDW Std Deviation 42.6 (28.0-62.0) fl RDW Coeff of [place] 13 (11.0-15.0) % Plt Count 519 H (150-400) K/uL MPV 9.50 (7.40-12.00) fL Neut % (Auto) 78.1 (48.0-80.0) % Lymph % (Auto) 10.0 L (16.0-40.0) % [place] % (Auto) 11.1 (0.0-15.0) % Eos % (Auto) 0.7 (0.0-7.0) % Baso % (Auto) 0.1 (0.0-1.5) % Neut # (Auto) 12.5 H (1.4-5.7) K/uL Lymph # (Auto) 1.6 (0.6-2.4) K/uL [place] # (Auto) 1.8 H (0.0-0.8) K/uL Eos # (Auto) 0.1 (0.0-0.7) K/uL Baso # (Auto) 0.0 (0.0-0.1) K/uL Nucleated RBC % 0.0 /100WBC Nucleated RBCs # 0 K/uL Lactate (0.20-2.00) mmol/L Sodium 136 (136-148) mmol/L Potassium 3.8 (3.5-5.1) mmol/L Chloride 101 (98-107) mmol/L Carbon Dioxide 26.3 (21.0-32.0) mmol/L BUN 12 (7.0-18.0) mg/dL Creatinine 1.0 (0.8-1.3) mg/dL Est Cr Clr Drug Dosing TNP Estimated GFR (MDRD) > 60.0 ml/min Glucose 156 H (74-106) mg/dL Calcium 8.8 (8.5-10.1) mg/dL Total Bilirubin 0.4 (0.2-1.0) mg/dL AST 14 L (15-37) IU/L ALT 22 (14-63) IU/L Alkaline Phosphatase 71 (46-116) U/L Troponin I < 0.050 (0.000-0.056) ng/mL Total Protein 7.3 (6.4-8.2) g/dL Albumin 3.2 L (3.4-5.0) g/dL Globulin 4.1 H (2.6-4.0) g/dL Albumin/Globulin Ratio 0.8 L (0.9-1.6) Lipase 73 (73-393) U/L Urine Color Urine Appearance Urine pH (5.0-8.0) Ur Specific [place] (1.001-1.035) Urine Protein (NEGATIVE) mg/dL Urine Glucose (UA) (NEGATIVE) mg/dL Urine Ketones (NEGATIVE) mg/dL Urine Occult Blood (NEGATIVE) Urine Nitrite (NEGATIVE) Urine Bilirubin (NEGATIVE) Urine Urobilinogen (<2.0) EU/dL Ur Leukocyte Esterase (NEGATIVE) 01/14/19 01/14/19 Range/Units 21:51 22:43 WBC (4.0-11.0) K/uL RBC (4.50-5.90) M/uL Hgb (13.0-17.0) g/dL Hct (38.0-50.0) % MCV (80.0-98.0) fL MCH (27.0-32.0) pg MCHC (31.0-37.0) g/dL RDW Std Deviation (28.0-62.0) fl RDW Coeff of [place] (11.0-15.0) % Plt Count (150-400) K/uL MPV (7.40-12.00) fL Neut % (Auto) (48.0-80.0) % Lymph % (Auto) (16.0-40.0) % [place] % (Auto) (0.0-15.0) % Eos % (Auto) (0.0-7.0) % Baso % (Auto) (0.0-1.5) % Neut # (Auto) (1.4-5.7) K/uL Lymph # (Auto) (0.6-2.4) K/uL [place] # (Auto) (0.0-0.8) K/uL Eos # (Auto) (0.0-0.7) K/uL Baso # (Auto) (0.0-0.1) K/uL Nucleated RBC % /100WBC Nucleated RBCs # K/uL Lactate 0.6 (0.20-2.00) mmol/L Sodium (136-148) mmol/L Potassium (3.5-5.1) mmol/L Chloride (98-107) mmol/L Carbon Dioxide (21.0-32.0) mmol/L BUN (7.0-18.0) mg/dL Creatinine (0.8-1.3) mg/dL Est Cr Clr Drug Dosing Estimated GFR (MDRD) ml/min Glucose (74-106) mg/dL Calcium (8.5-10.1) mg/dL Total Bilirubin (0.2-1.0) mg/dL AST (15-37) IU/L ALT (14-63) IU/L Alkaline Phosphatase (46-116) U/L Troponin I (0.000-0.056) ng/mL Total Protein (6.4-8.2) g/dL Albumin (3.4-5.0) g/dL Globulin (2.6-4.0) g/dL Albumin/Globulin Ratio (0.9-1.6) Lipase (73-393) U/L Urine Color YELLOW Urine Appearance CLEAR Urine pH 5.0 (5.0-8.0) Ur Specific [place] <= 1.005 (1.001-1.035) Urine Protein NEGATIVE (NEGATIVE) mg/dL Urine Glucose (UA) NEGATIVE (NEGATIVE) mg/dL Urine Ketones NEGATIVE (NEGATIVE) mg/dL Urine Occult Blood NEGATIVE (NEGATIVE) Urine Nitrite NEGATIVE (NEGATIVE) Urine Bilirubin NEGATIVE (NEGATIVE) Urine Urobilinogen 0.2 (<2.0) EU/dL Ur Leukocyte Esterase NEGATIVE (NEGATIVE) Meds: Medications Discontinued Medications Generic Name Dose Route Start Last Admin Trade Name Freq PRN Reason Stop Dose Admin Albuterol/Ipratropium 3 ml 01/14/19 21:20 01/14/19 21:30 Duoneb 3.0-0.5 Mg/3 Ml NEB 01/14/19 21:21 3 ml ONETIME ONE Administration Sodium Chloride 1,000 mls @ 999 mls/hr 01/14/19 21:19 01/14/19 21:34 Normal Saline IV 01/14/19 22:19 999 mls/hr BOLUS ONE Administration Clindamycin Phosphate 600 mg/ 50 mls @ 100 mls/hr 01/14/19 23:15 01/14/19 23: 43 Premix IV 01/14/19 23:44 100 mls/hr ONETIME ONE Administration Piperacillin Sod/Tazobactam 100 mls @ 100 mls/hr 01/14/19 23:15 01/14/19 23: 43 Sod 4.5 gm/ Sodium Chloride IV 01/15/19 00:14 100 mls/hr ONETIME ONE Administration Sodium Chloride 1,000 mls @ 125 mls/hr 01/14/19 23:30 01/14/19 23:43 Normal Saline IV 125 mls/hr ASDIRECTED [facility]ARC[facility]A Administration Iopamidol 100 ml 01/14/19 21:59 01/14/19 22:18 Isovue-370 (76%) IVPUSH 01/14/19 22:00 100 ml ONETIME ONE Administration Methylprednisolone Sodium Succinate 125 mg 01/14/19 21:20 01/14/19 21:34 Solu-Medrol IVPUSH 01/14/19 21:21 125 mg ONETIME ONE Administration Departure - Departure Time of Disposition: 23:24 Disposition: DC/Tfer to [facility] 02 Condition: Good Clinical Impression: Pleural effusion, right, Dyspnea and respiratory abnormalities - Discharge Information Referrals: PCP,None [Primary Care Provider] - Forms: ED Department Discharge - My Orders Last 24 Hours: My Active Orders 01/14/19 21:07 EKG Documentation Completion [RC] STAT 01/14/19 21:21 RT Aerosol Therapy [RC] ASDIRECTED 01/14/19 21:32 Blood Culture x2 Reflex Set [OM.PC] Stat 01/14/19 21:40 CULTURE BLOOD [BC] Stat 01/14/19 21:51 CULTURE BLOOD [BC] Stat - Assessment/Plan Last 24 Hours: My Active Orders 01/14/19 21:07 EKG Documentation Completion [RC] STAT 01/14/19 21:21 RT Aerosol Therapy [RC] ASDIRECTED 01/14/19 21:32 Blood Culture x2 Reflex Set [OM.PC] Stat 01/14/19 21:40 CULTURE BLOOD [BC] Stat 01/14/19 21:51 CULTURE BLOOD [BC] Stat <Trisha Flynn - Last Filed: 01/15/19 12:16> ED HPI GENERAL MEDICAL PROBLEM - General Source of Information: Reports: Patient History Limitations: Reports: No Limitations - History of Present Illness INITIAL COMMENTS - FREE TEXT/NARRATIVE: HISTORY AND PHYSICAL: History of present illness: Patient is a 58-year-old male who presents to the ED today with concern of shortness of breath and right-sided abdominal pain. Patient was seen on 01/02/19 and was admitted for a community-acquired pneumonia. Patient was given antibiotics inpatient and was sent home on azithromycin and cefdinir. Patient states he took these antibiotics accordingly has not had improvement of his symptoms. Patient states that he feels worse today than when he was admitted. Patient states he's also been "burping" which causes significant right-sided abdominal pain. Patient states he feels his abdomen is more distended than usual. Patient states when he was here before he did not have the abdominal pain but that his symptoms have kind of progressed into this. Patient denies any other symptoms at this time. Patient does have a history of smoking about a pack of cigarettes a day for over 40 years. He denies any other health history at this time. Patient states per his baseline he has a chronic cough but he has had an increase in his cough over the past couple weeks Patient denies fever, chills, chest pain. Denies headache, neck stiff ness, change in vision, syncope, or near syncope. Denies nausea, vomiting, diarrhea, constipation, or dysuria. Has not noted any blood in urine or stool. Patient has been eating and drinking appropriately. Review of systems: As per history of present illness and below otherwise all systems reviewed and negative. Past medical history: As per history of present illness and as reviewed below otherwise noncontributory. Surgical history: As per history of present illness and as reviewed below otherwise noncontributory. Social history: See social history for further information Family history: As per history of present illness and as reviewed below otherwise noncontributory. Physical exam: General: Patient is alert, oriented, and in no acute distress. Patient laying comfortably on exam table. Patient appears chronically ill and older than stated age. HEENT: Atraumatic, normocephalic, pupils equal and reactive bilaterally, negative for conjunctival pallor or scleral icterus, mucous membranes dry, TMs normal bilaterally, throat clear, neck supple, nontender, trachea midline. No drooling or trismus noted. No meningeal signs. No hot potato voice noted. Lungs: Diffuse wheezing to auscultation, breath sounds equal bilaterally, chest nontender. Heart: Exam of heart limited due to lung sounds. S1S2, regular rate and rhythm without overt murmur Abdomen: Severe pain with palpation of the right upper and right lower abdomen with positive guarding. Firm, distended. Negative for masses or hepatosplenomegaly. Negative for costovertebral tenderness. Pelvis: Stable nontender. Genitourinary: Deferred. Rectal: Deferred. Skin: Intact, warm, dry. No lesions or rashes noted. Extremities: Atraumatic, negative for cords or calf pain. Neurovascular unremarkable. Neuro: Awake, alert, oriented. Cranial nerves II through XII unremarkable. Cerebellum unremarkable. Motor and sensory unremarkable throughout. Exam nonfocal. Notes: Dr. Edwards has assumed care of patient and will follow all remaining diagnostics and disposition. Diagnostics: CBC, CMP, lipase, troponin, UA, abdominal pelvic CT, angio chest CT, EKG, lactate, blood cultures 2 Therapeutics: Saline, DuoNeb, Solumedrol Prescription: Impression: Right sided abdominal pain, unspecified Dehydration Dyspnea Chronic smoker Plan: Definitive disposition and diagnosis as appropriate pending reevaluation and review of above. right chest Pain Score (Numeric/FACES): 5 Past Medical History Other HEENT History: wears glasses Cardiovascular History: Reports: Hypertension Respiratory History: Reports: Sleep Apnea Gastrointestinal History: Reports: None Genitourinary History: Reports: None Musculoskeletal History: Reports: Fracture Other Musculoskeletal History: hx of alfredo fx legs and fx foot Neurological History: Reports: Concussion Psychiatric History: Reports: None Endocrine/Metabolic History: Reports: Obesity/BMI 30+. Denies: Diabetes, Type II, Hypothyroidism Hematologic History: Reports: None Immunologic History: Reports: None Oncologic (Cancer) History: Reports: None Dermatologic History: Reports: None - Infectious Disease History Infectious Disease History: Reports: Chicken Pox - Past Surgical History Head Surgeries/Procedures: Reports: None HEENT Surgical History: Reports: Tonsillectomy Cardiovascular Surgical History: Reports: None Respiratory Surgical History: Reports: None GI Surgical History: Reports: None Male Surgical History: Reports: None Endocrine Surgical History: Reports: None Neurological Surgical History: Reports: None Musculoskeletal Surgical History: Reports: None Oncologic Surgical History: Reports: None Dermatological Surgical History: Reports: Other (See Below) Social & Family History - Family History Family Medical History: Noncontributory - Tobacco Use Smoking Status *Q: Current Every Day Smoker Years of Tobacco use: 40 Packs/Tins Daily: 1 - Caffeine Use Caffeine Use: Reports: Coffee - Recreational Drug Use Recreational Drug Use: No - Living Situation & Occupation Living situation: Reports: Occupation: Employed ED ROS GENERAL - Review of Systems Review Of Systems: ROS reveals no pertinent complaints other than HPI. ED EXAM, GENERAL - Physical Exam Exam: See Below (See dictation)
[2019-01-14 21:40] LABS: CHLORIDE,CL 101 mmol/L (98-107); SODIUM,NA 136 mmol/L (136-148)
[2019-01-14] MEDS ORDERED: Iopamidol 755 Mg/ML 100 ML Bottle IVPUSH ONE (21:59)
--- NOTE | 2019-01-14 22:53 | CT ---
INDICATION: Shortness breath, right-sided abdominal pain TECHNIQUE: CT chest pulmonary angiogram acquired with IV contrast. 100 cc Isovue 370 COMPARISON: None FINDINGS: Cardiovascular structures: Nondiagnostic study for pulmonary embolus due to suboptimal opacification of pulmonary arteries. Heart size is normal. No sign of aneurysm or dissection in the thoracic aorta. Mediastinum and malcom: Subcentimeter mediastinal adenopathy. Lungs: Right lower lobe atelectasis Pleura and pericardium: Large right pleural effusion with possible loculation. Chest wall and axilla: No mass or adenopathy. Bones: No significant findings. Upper abdomen: Unremarkable. IMPRESSION: Nondiagnostic study for pulmonary embolus 2 suboptimal opacification of pulmonary arteries. Large right pleural effusion with adjacent atelectasis. Loculation cannot be excluded. Dictated by Rubens Smith MD @ 01/14/2019 10:50:35 PM Please note that all CT scans at this facility use dose modulation, iterative reconstruction, and/or weight-based dosing when appropriate to reduce radiation dose to as low as reasonably achievable. Dictated by: Rubens Smith MD @ 01/14/2019 22:50:46 (Electronically Signed)
--- NOTE | 2019-01-14 22:59 | CT ---
INDICATION: Right-sided abdominal pain, shortness of breath TECHNIQUE: CT abdomen and pelvis acquired with IV contrast. 100 cc Isovue 370 COMPARISON: None FINDINGS: Lower chest: Right pleural effusion with adjacent atelectasis. Liver: Unremarkable. Spleen: Unremarkable. Pancreas: Unremarkable. Gallbladder and bile ducts: Unremarkable. Kidneys: Unremarkable. Adrenal glands: Unremarkable. GI tract: Sigmoid diverticulosis. Diffuse colonic fecal retention. Appendix is normal. Vascular structures: Unremarkable. Lymph nodes: Unremarkable. Miscellaneous: Unremarkable. No free air or significant free fluid. Pelvic Organs: Unremarkable. Bones: Unremarkable for age. IMPRESSION: Large right pleural effusion with adjacent atelectasis. No definitive findings in the abdomen to explain the patient`s right-sided pain. Sigmoid diverticulosis. Diffuse colonic fecal retention. Normal appearing gallbladder and appendix. Dictated by Rubens Smith MD @ 01/14/2019 10:57:47 PM Please note that all CT scans at this facility use dose modulation, iterative reconstruction, and/or weight-based dosing when appropriate to reduce radiation dose to as low as reasonably achievable. Dictated by: Rubens Smith MD @ 01/14/2019 22:57:55 (Electronically Signed)
[2019-01-14] MEDS ORDERED: Piperacillin/Tazobactam 4.5 GM in Sodium Chloride 0.9% 100 ML IV ONE (23:15)
[2019-01-14] MEDS ORDERED: Clindamycin Phosphate in D5W 600 MG in Premix Bag 50 BAG IV ONE ×2 (23:15)
[2019-01-14] MEDS ORDERED: Sodium Chloride 0.9% 1,000 ML IV SCH (23:30)
[2019-01-15 00:09] VITALS: BP 132/74
== END 2019-01-15 01:05 ==
LOC: MW.ED 20:57
DX: J90 Pleural effusion, not elsewhere classified (principal); E86.0 Dehydration; R06.00 Dyspnea, unspecified; F17.210 Nicotine dependence, cigarettes, uncomplicated; I10 Essential (primary) hypertension; E66.9 Obesity, unspecified
CPT/HCPCS: 71275; 74177; 80053; 81003; 83605; 83690; 84484; 85025; 87040; 93005; 94640; 96361; 96365; 96375; 99285; A4217; J2543; J2930; J3490; J7030; J7040; Q9967; J7620-GY

== ENCOUNTER 2019-06-19 02:17 | Emergency (ER) | payer BC ==
[2019-06-19] MEDS ORDERED: Sodium Chloride 0.9% 2.5 ML Syringe FLUSH PRN (02:53)
[2019-06-19] MEDS ORDERED: Albuterol/Ipratropium 3.0-0.5 MG/3 ML Neb Soln NEB ONE ×2 (02:53→04:40)
[2019-06-19] MEDS ORDERED: Sodium Chloride 0.9% 10 ML Syringe FLUSH PRN (02:53)
[2019-06-19] MEDS ORDERED: Aspirin 81 MG Tab.Chew PO ONE (02:54)
[2019-06-19] MEDS ORDERED: Nitroglycerin 0.4 MG Tab.SL SL PRN (02:54)
--- NOTE | 2019-06-19 02:59 | EDM.PDOC ---
ED HPI GENERAL MEDICAL PROBLEM - General Chief Complaint: Chest Pain Stated Complaint: SHORTNESS OF BREATH, RECENT SURGERY Time Seen by Provider: 06/19/19 02:34 - History of Present Illness INITIAL COMMENTS - FREE TEXT/NARRATIVE: HISTORY AND PHYSICAL: History of present illness: The patient is a 68-year-old male with a history of hypertension and mesothelioma as well as cardiac disease and who underwent a cardiac catheter and one stent placement March 14 of this year as well as partial right lung lobectomy on May 03 of this year, both procedures done in [place], and the lung lobectomy for mesothelioma and who follows in our oncology clinic and presents with 3 days of chest congestion cough occasionally productive of some phlegm and some shortness of breath. He says that he has a slight chest pain and points to his left clavicle area and says that with this cardiac event he did not have any chest pain. He is scheduled in the clinic to have a CT scan of the chest neck suite then port placement and to start chemotherapy the week after. The patient has a known history of tobacco use and just recently quit in January of this year. Used to smoke one pack a day but was never diagnosed with asthma or COPD. The patient says he is concerned about infection as he has 2 small children in his home that have upper respiratory congestion and infections. He has not had a fever at home and he is eating and drinking normally without any abdominal pain nausea vomiting or diarrhea. He says he does feel short of breath and has discomfort when he is coughing and feels like he is not moving air well. He has the discomfort in his right chest wall near his incision and now this chest pain on the left near the clavicle area that does not radiate. He says he has had the left chest pain in the past He does say that he overall feels congested and some tightness right before he has to cough. The patient did not get his influenza shot but he is aware of Review of systems: As per history of present illness and below otherwise all systems reviewed and negative. Past medical history: As per history of present illness and as reviewed below otherwise noncontributory. Surgical history: As per history of present illness and as reviewed below otherwise noncontributory. Social history: No reported history of drug or alcohol abuse. Family history: As per history of present illness and as reviewed below otherwise noncontributory. Physical exam: General: Well-developed well-nourished man who is nontoxic and not breathless in the ED. Vital signs are noted by me and is speaking clearly and easily in the ED HEENT: Atraumatic, normocephalic, pupils reactive, negative for conjunctival pallor or scleral icterus, mucous membranes moist, throat clear, neck supple, nontender, trachea midline. Lungs: Diminished breath sounds on the right base and throughout the left lung field with some rhonchi on the left and the incision at his right chest wall is healing well without any erythema or soft tissue swelling, there is no wheezing or stridor breath sounds equal bilaterally, chest nontender. There is no tenderness with palpation of the left chest wall or near the area he's describing the discomfort in Heart: S1S2, regular, negative for clicks, rubs, or JVD. Abdomen: Soft, nondistended, nontender. Negative for masses or hepatosplenomegaly. Negative for costovertebral tenderness. Pelvis: Stable nontender. Genitourinary: Deferred. Rectal: Deferred. Extremities: Atraumatic, negative for cords or calf pain. Neurovascular unremarkable. No pedal edema or leg asymmetry Neuro: Awake, alert, oriented. Cranial nerves II through XII unremarkable. Cerebellum unremarkable. Motor and sensory unremarkable throughout. Exam nonfocal. Diagnostics: EKG chest x-ray influenza lactic acid CBC CMP troponin blood cultures 2 Therapeutics: IV O2 monitor aspirin DuoNeb SL nitroglycerin x 1 He says that after the nitroglycerin his pain was not necessarily change but after the DuoNeb he feels much improved and his chest pain is gone. We will continue to monitor his workup I'm discussing the lab results and chest x-ray findings with the patient and at bedside. He is telling me that after he was discharged after his lung surgery he was told that his right lung was not completely inflated. This would explain the small pneumothorax that I am seeing on the chest x-ray. The patient does not seem concerned about this test results. He says he is not having any cough here and is not having any chest discomfort. I have offered to do the CT scan of his chest here in the emergency department versus waiting until Thursday and I've also offered the patient 23 hour observation for serial EKGs and cardiac enzymes in light of his cardiac history and the atypical upper left chest pain that resolved with the DuoNeb. The patient and the have discussed and he does not want to be admitted to the hospital for serial EKGs cardiac enzymes and repeat chest x-ray in the morning to evaluate this small pneumothorax. He has agreed that he will return tomorrow and have an outpatient chest x-ray and I will follow up those results. He would like an inhaler and I will give him a prescription for that from [facility] as well as a spacer. We discussed possible steroid treatment and in light of the fact that he has a treatment plan in place for chemotherapy in the next 1 -2 weeks we have decided to with hold steroids at this time and see how he does just with the inhaler. He is aware of my concerns and understands them and accepts them. He does not want to do a CT scan of his chest this evening. He definitely does not want to be admitted to the hospital on my reexam he is basically the same as when he came in with better air exchange on the right side than on the left but he is moving air better on the left side and he is not having any wheezing or work of breathing. Impression: Dyspnea, recent right partial lobectomy history of mesothelioma, residual small right pneumothorax status post surgery Definitive disposition and diagnosis as appropriate pending reevaluation and review of above. Chest Pain Score (Numeric/FACES): 1 - Related Data Allergies Allergy/AdvReac Type Severity Reaction Status Date / Time No Known Allergies Allergy Verified 06/19/19 02:23 Home Meds: Home Meds Acetaminophen [Tylenol Extra Strength] 1,000 mg PO Q6HR 06/19/19 [History] Aspirin [Adult Low Dose Aspirin EC] 81 mg PO DAILY 06/19/19 [History] Clopidogrel [Plavix] 75 mg PO DAILY 06/19/19 [History] Lidocaine 4% [LMX 4 Cream with Tegaderm] 2 each TOP DAILY 06/19/19 [History] Metoprolol Succinate 50 mg PO DAILY 06/19/19 [History] Omeprazole 40 mg PO DAILY 06/19/19 [History] Polyethylene Glycol 3350 [MiraLAX] 17 gm PO DAILY 06/19/19 [History] Sennosides [Senna] 8.6 mg PO BID 06/19/19 [History] Simethicone 80 mg PO ASDIRECTED 06/19/19 [History] amLODIPine [Norvasc] 5 mg PO DAILY 06/19/19 [History] atorvaSTATin Calcium [Lipitor] 40 mg PO DAILY 06/19/19 [History] oxyCODONE 5 mg PO ASDIRECTED 06/19/19 [History] Past Medical History Other HEENT History: wears glasses Cardiovascular History: Reports: Hypertension, Stents Respiratory History: Reports: Sleep Apnea Gastrointestinal History: Reports: None Genitourinary History: Reports: None Musculoskeletal History: Reports: Fracture Other Musculoskeletal History: hx of alfredo fx legs and fx foot Neurological History: Reports: Concussion Psychiatric History: Reports: None Endocrine/Metabolic History: Reports: Obesity/BMI 30+ Hematologic History: Reports: None Immunologic History: Reports: None Oncologic (Cancer) History: Reports: None Dermatologic History: Reports: None - Infectious Disease History Infectious Disease History: Reports: Chicken Pox - Past Surgical History Head Surgeries/Procedures: Reports: None HEENT Surgical History: Reports: Tonsillectomy Cardiovascular Surgical History: Reports: None Respiratory Surgical History: Reports: Lung Resection GI Surgical History: Reports: None Male Surgical History: Reports: None Endocrine Surgical History: Reports: None Neurological Surgical History: Reports: None Musculoskeletal Surgical History: Reports: None Oncologic Surgical History: Reports: None Dermatological Surgical History: Reports: Other (See Below) Social & Family History - Family History Family Medical History: Noncontributory - Tobacco Use Smoking Status *Q: Former Smoker Used Tobacco, but Quit: Yes Month/Year Tobacco Last Used: 2018 - Caffeine Use Caffeine Use: Reports: Coffee, Tea - Recreational Drug Use Recreational Drug Use: No - Living Situation & Occupation Living situation: Reports: Occupation: Employed ED ROS GENERAL - Review of Systems Review Of Systems: ROS reveals no pertinent complaints other than HPI. ED EXAM, GENERAL - Physical Exam Exam: See Below (see Dictation) Course - Vital Signs Last Recorded V/S: Last Vital Signs Temp 36.3 C 06/19/19 02:23 Pulse 103 H 06/19/19 02:23 Resp 23 H 06/19/19 02:23 BP 119/75 06/19/19 03:09 Pulse Ox 97 06/19/19 03:21 - Orders/Labs/Meds Orders: Active Orders 24 hr Category Date Time Status Cardiac Monitoring [RC] . DIRECTED Care 06/19/19 02:53 Active EKG Documentation Completion [RC] STAT Care 06/19/19 02:53 Active Oxygen Therapy, ED [RC] ASDIRECTED Care 06/19/19 02:53 Active Pulse Oximetry [RC] ASDIRECTED Care 06/19/19 02:53 Active RT Aerosol Therapy [RC] ASDIRECTED Care 06/19/19 02:54 Active RT Aerosol Therapy [RC] ASDIRECTED Care 06/19/19 04:40 Ordered CULTURE BLOOD [BC] Stat Lab 06/19/19 03:00 Received CULTURE BLOOD [BC] Stat Lab 06/19/19 03:10 Received Albuterol/Ipratropium [DuoNeb 3.0-0.5 MG/3 ML] Med 06/19/19 04:40 Once 3 ml NEB ONETIME ONE Nitroglycerin [Nitrostat] Med 06/19/19 02:54 Active 0.4 mg SL Q5M PRN Sodium Chloride 0.9% [Saline Flush] Med 06/19/19 02:53 Active 10 ml FLUSH ASDIRECTED PRN Sodium Chloride 0.9% [Saline Flush] Med 06/19/19 02:53 Active 2.5 ml FLUSH ASDIRECTED PRN Blood Culture x2 Reflex Set [OM.PC] Stat Oth 06/19/19 02:53 Ordered Saline Lock Insert [OM.PC] Stat Oth 06/19/19 02:53 Ordered Medication Orders Nitroglycerin (Nitrostat) 0.4 mg SL Q5M PRN PRN Reason: Chest Pain Last Admin: 06/19/19 03:09 Dose: 0.4 mg Sodium Chloride (Saline Flush) 10 ml FLUSH ASDIRECTED PRN PRN Reason: Keep Vein Open Last Admin: 06/19/19 03:02 Dose: 10 ml Sodium Chloride (Saline Flush) 2.5 ml FLUSH ASDIRECTED PRN PRN Reason: Keep Vein Open Last Admin: 06/19/19 03:02 Dose: 2.5 ml Labs: Laboratory Tests 06/19/19 06/19/19 06/19/19 Range/Units 02:55 02:55 02:55 WBC 13.09 H (4.0-11.0) K/uL RBC 4.15 L (4.50-5.90) M/uL Hgb 12.2 L (13.0-17.0) g/dL Hct 38.0 (38.0-50.0) % MCV 91.6 (80.0-98.0) fL MCH 29.4 (27.0-32.0) pg MCHC 32.1 (31.0-37.0) g/dL RDW Std Deviation 48.6 (28.0-62.0) fl RDW Coeff of [place] 14 (11.0-15.0) % Plt Count 457 H (150-400) K/uL MPV 9.40 (7.40-12.00) fL Neut % (Auto) 72.1 (48.0-80.0) % Lymph % (Auto) 12.6 L (16.0-40.0) % Elbert % (Auto) 11.7 (0.0-15.0) % Eos % (Auto) 3.2 (0.0-7.0) % Baso % (Auto) 0.4 (0.0-1.5) % Neut # (Auto) 9.4 H (1.4-5.7) K/uL Lymph # (Auto) 1.7 (0.6-2.4) K/uL Elbert # (Auto) 1.5 H (0.0-0.8) K/uL Eos # (Auto) 0.4 (0.0-0.7) K/uL Baso # (Auto) 0.1 (0.0-0.1) K/uL Nucleated RBC % 0.0 /100WBC Nucleated RBCs # 0 K/uL Lactate 0.9 (0.20-2.00) mmol/L Sodium 143 (136-148) mmol/L Potassium 4.3 (3.5-5.1) mmol/L Chloride 106 (98-107) mmol/L Carbon Dioxide 29.9 (21.0-32.0) mmol/L BUN 12 (7.0-18.0) mg/dL Creatinine 1.1 (0.8-1.3) mg/dL Est Cr Clr Drug Dosing 71.41 mL/min Estimated GFR (MDRD) > 60.0 ml/min Glucose 115 H (74-106) mg/dL Calcium 9.2 (8.5-10.1) mg/dL Total Bilirubin 0.3 (0.2-1.0) mg/dL AST 17 (15-37) IU/L ALT 30 (14-63) IU/L Alkaline Phosphatase 93 (46-116) U/L Troponin I < 0.050 (0.000-0.056) ng/mL Total Protein 7.6 (6.4-8.2) g/dL Albumin 3.5 (3.4-5.0) g/dL Globulin 4.1 H (2.6-4.0) g/dL Albumin/Globulin Ratio 0.9 (0.9-1.6) Meds: Medications Generic Name Dose Route Start Last Admin Trade Name Freq PRN Reason Stop Dose Admin Nitroglycerin 0.4 mg 06/19/19 02:54 06/19/19 03:09 Nitrostat SL 0.4 mg Q5M PRN Administration Chest Pain Sodium Chloride 10 ml 06/19/19 02:53 06/19/19 03:02 Saline Flush FLUSH 10 ml ASDIRECTED PRN Administration Keep Vein Open Sodium Chloride 2.5 ml 06/19/19 02:53 06/19/19 03:02 Saline Flush FLUSH 2.5 ml ASDIRECTED PRN Administration Keep Vein Open Discontinued Medications Generic Name Dose Route Start Last Admin Trade Name Freq PRN Reason Stop Dose Admin Albuterol/Ipratropium 3 ml 06/19/19 02:53 06/19/19 03:00 Duoneb 3.0-0.5 Mg/3 Ml NEB 06/19/19 02:54 3 ml ONETIME ONE Administration Aspirin 324 mg 06/19/19 02:54 06/19/19 03:01 Aspirin PO 06/19/19 02:55 324 mg ONETIME ONE Administration Departure - Departure Time of Disposition: 04:42 Disposition: Home, Self-Care 01 Condition: Good Clinical Impression: Dyspnea and respiratory abnormalities, Mesothelioma - Discharge Information Referrals: Praful Handy DO [Primary Care Provider] - Forms: ED Department Discharge Additional Instructions: The following information is given to patients seen in the emergency department who are being discharged to home. This information is to outline your options for follow-up care. We provide all patients seen in our emergency department with a follow-up referral. The need for follow-up, as well as the timing and circumstances, are variable depending upon the specifics of your emergency department visit. If you don't have a primary care physician on staff, we will provide you with a referral. We always advise you to contact your personal physician following an emergency department visit to inform them of the circumstance of the visit and for follow-up with them and/or the need for any referrals to a consulting specialist. The emergency department will also refer you to a specialist when appropriate. This referral assures that you have the opportunity for followup care with a specialist. All of these measure are taken in an effort to provide you with optimal care, which includes your followup. Under all circumstances we always encourage you to contact your private physician who remains a resource for coordinating your care. When calling for followup care, please make the office aware that this follow-up is from your recent emergency room visit. If for any reason you are refused follow-up, please contact the emergency department at and ask to speak to the emergency department charge nurse. [facility] Primary care- Internal [place] [address] Please use her Ventolin inhaler with the spacer you have been given here in the ED 1-2 puffs every 6 hours for the next 24 hours and then 1-2 puffs every 6 hours as needed. Please return tomorrow evening for the chest x-ray using the prescription yet been given and I will follow-up those test results. Continue to monitor symptoms and please return to the ER for any new changes or evolution of your symptoms. Call and schedule a follow-up appointment with primary care and also connect with your oncologist to let them know of tonight' s events. Also try to contact your providers in [place] about tonight's events. - My Orders Last 24 Hours: My Active Orders 06/19/19 02:53 Cardiac Monitoring [RC] . DIRECTED EKG Documentation Completion [RC] STAT Oxygen Therapy, ED [RC] ASDIRECTED Pulse Oximetry [RC] ASDIRECTED Sodium Chloride 0.9% [Saline Flush] 10 ml FLUSH ASDIRECTED PRN Sodium Chloride 0.9% [Saline Flush] 2.5 ml FLUSH ASDIRECTED PRN Blood Culture x2 Reflex Set [OM.PC] Stat Saline Lock Insert [OM.PC] Stat 06/19/19 02:54 RT Aerosol Therapy [RC] ASDIRECTED Nitroglycerin [Nitrostat] 0.4 mg SL Q5M PRN 06/19/19 03:00 CULTURE BLOOD [BC] Stat 06/19/19 03:10 CULTURE BLOOD [BC] Stat 06/19/19 04:40 RT Aerosol Therapy [RC] ASDIRECTED Albuterol/Ipratropium [DuoNeb 3.0-0.5 MG/3 ML] 3 ml NEB ONETIME ONE - Assessment/Plan Last 24 Hours: My Active Orders 06/19/19 02:53 Cardiac Monitoring [RC] . DIRECTED EKG Documentation Completion [RC] STAT Oxygen Therapy, ED [RC] ASDIRECTED Pulse Oximetry [RC] ASDIRECTED Sodium Chloride 0.9% [Saline Flush] 10 ml FLUSH ASDIRECTED PRN Sodium Chloride 0.9% [Saline Flush] 2.5 ml FLUSH ASDIRECTED PRN Blood Culture x2 Reflex Set [OM.PC] Stat Saline Lock Insert [OM.PC] Stat 06/19/19 02:54 RT Aerosol Therapy [RC] ASDIRECTED Nitroglycerin [Nitrostat] 0.4 mg SL Q5M PRN 06/19/19 03:00 CULTURE BLOOD [BC] Stat 06/19/19 03:10 CULTURE BLOOD [BC] Stat 06/19/19 04:40 RT Aerosol Therapy [RC] ASDIRECTED Albuterol/Ipratropium [DuoNeb 3.0-0.5 MG/3 ML] 3 ml NEB ONETIME ONE
[2019-06-19 03:24] LABS: BLOOD UREA NITROGEN,BUN 12 mg/dL (7.0-18.0); CARBON DIOXIDE,CO2 29.9 mmol/L (21.0-32.0); CHLORIDE,CL 106 mmol/L (98-107); GLUCOSE RANDOM 115 mg/dL (74-106); POTASSIUM,K 4.3 mmol/L (3.5-5.1); SODIUM,NA 143 mmol/L (136-148)
--- NOTE | 2019-06-19 04:08 | CR ---
INDICATION: Shortness of breath Comparison: Chest x-ray 02/05/2019 TECHNIQUE: Two view chest. FINDINGS: Postsurgical changes right thoracotomy. Stable cardiac mediastinal silhouette. The thoracic aorta appears slightly tortuous. Right hemidiaphragm is elevated with right-sided volume loss. Multiple surgical clips over the right hilum and midlung. Right basilar strandy atelectasis. Left lung is clear. Small right-sided pneumothorax. IMPRESSION: 1. Small right sided pneumothorax. 2. Postsurgical changes of right thoracotomy with elevation right hemidiaphragm right-sided volume loss. Basilar strandy atelectasis. Dictated by Josselyn Roberts MD @ Jun 19 2019 4:03AM Signed by Dr. Josselyn Roberts @ Jun 19 2019 4:07AM
[2019-06-19 05:31] VITALS: BP 138/81; PULSE 96
== END 2019-06-19 05:31 | disposition home or self-care (01) ==
LOC: MW.ED 02:17
DX: R06.00 Dyspnea, unspecified (principal); J93.9 Pneumothorax, unspecified; C45.9 Mesothelioma, unspecified; I10 Essential (primary) hypertension; E66.9 Obesity, unspecified; Z68.29 Body mass index [BMI] 29.0-29.9, adult; Z87.891 Personal history of nicotine dependence; Z79.82 Long term (current) use of aspirin; Z79.02 Long term (current) use of antithrombotics/antiplatelets; Z79.899 Other long term (current) drug therapy
CPT/HCPCS: 36415; 71046; 80053; 83605; 84484; 85025; 87040; 87804; 93005; 94640; 99285; A9270; J7620-GY

== ENCOUNTER 2019-08-15 17:50 | Emergency (ER) | payer BC, SELFPAY ==
--- NOTE | 2019-08-15 18:39 | EDM.PDOC ---
<Rito Lugo - Last Filed: 08/15/19 23:42> ED HPI GENERAL MEDICAL PROBLEM - General Chief Complaint: Respiratory Problem Stated Complaint: SHORTNESS OF BREATH Time Seen by Provider: 08/15/19 18:38 - Related Data Allergies Allergy/AdvReac Type Severity Reaction Status Date / Time No Known Allergies Allergy Verified 08/15/19 17:56 Home Meds: Home Meds Acetaminophen [Tylenol Extra Strength] 1,000 mg PO Q6HR 06/19/19 [History] Aspirin [Adult Low Dose Aspirin EC] 81 mg PO DAILY 06/19/19 [History] Clopidogrel [Plavix] 75 mg PO DAILY 06/19/19 [History] Lidocaine 4% [LMX 4 Cream with Tegaderm] 2 each TOP DAILY 06/19/19 [History] Metoprolol Succinate 50 mg PO DAILY 06/19/19 [History] Omeprazole 40 mg PO DAILY 06/19/19 [History] Polyethylene Glycol 3350 [MiraLAX] 17 gm PO DAILY 06/19/19 [History] Sennosides [Senna] 8.6 mg PO BID 06/19/19 [History] Simethicone 80 mg PO ASDIRECTED 06/19/19 [History] amLODIPine [Norvasc] 5 mg PO DAILY 06/19/19 [History] atorvaSTATin Calcium [Lipitor] 40 mg PO DAILY 06/19/19 [History] oxyCODONE 5 mg PO ASDIRECTED 06/19/19 [History] ED ROS GENERAL - Review of Systems Review Of Systems: Comprehensive ROS is negative, except as noted in HPI. Constitutional: Reports: No Symptoms HEENT: Reports: No Symptoms Respiratory: Reports: Shortness of Breath Cardiovascular: Reports: No Symptoms Endocrine: Reports: No Symptoms, Fatigue GI/Abdominal: Reports: No Symptoms : Reports: No Symptoms Musculoskeletal: Reports: No Symptoms Skin: Reports: No Symptoms Neurological: Reports: No Symptoms Psychiatric: Reports: No Symptoms Hematologic/Lymphatic: Reports: No Symptoms Immunologic: Reports: No Symptoms ED EXAM, GENERAL - Physical Exam Exam: See Below Exam Limited By: No Limitations General Appearance: Alert, WD/WN, No Apparent Distress Eye Exam: Bilateral Eye: PERRL Ears: Normal External Exam, Normal Canal, Hearing Grossly Normal, Normal TMs Ear Exam: Bilateral Ear: Auricle Normal, Canal Normal, TM normal Nose: Normal Inspection, Normal Mucosa, No Blood Throat/Mouth: Normal Inspection, Normal Lips, Normal Teeth, Normal Oropharynx, Normal Voice, No Airway Compromise Head: Atraumatic, Normocephalic Neck: Normal Inspection, Supple, Non-Tender, Full Range of Motion Respiratory/Chest: No Respiratory Distress, Decreased Breath Sounds. No: Wheezing, Accessory Muscle Use, Retractions Cardiovascular: Normal Peripheral Pulses, Regular Rate, Rhythm, No Edema, No JVD , No Murmur GI/Abdominal: Normal Bowel Sounds, Soft, Non-Tender, No Organomegaly, No Distention, No Abnormal Bruit (Male) Exam: Deferred Rectal (Males) Exam: Deferred Back Exam: Normal Inspection, Full Range of Motion Extremities: Normal Inspection, Normal Range of Motion, Non-Tender, No Pedal Edema, Normal Capillary Refill Psychiatric: Normal Affect, Normal Mood Skin Exam: Warm, Dry, Intact, Normal Color, No Rash Lymphatic: No Adenopathy Course - Vital Signs Text/Narrative:: 61-year-old male presents to the emergency room with shortness of breath. Patient was a sign off from the previous physician. Awaiting CT scan to rule out pulmonary embolus. CT scan shows a small loculated pneumothorax with some 4 x 1 x 3.0 cm mass. Discussed this case to be admitted with hospitalist. Because we have no backup as far as pulmonology's, chest CT hospitalist list feels the patient would be better served to transfer to a higher level of care. Is not having chest pain or shortness of breath at this time and is stable for transfer by diagnosis would be hypoxia, loculated pneumothorax .He has been accepted by Dr. Baer in the ER at [facility] Last Recorded V/S: Last Vital Signs Temp 36.5 C 08/15/19 17:58 Pulse 70 08/15/19 18:50 Resp 20 08/15/19 18:50 BP 126/85 08/15/19 18:50 Pulse Ox 94 L 08/15/19 18:50 - Orders/Labs/Meds Labs: Laboratory Tests 08/15/19 08/15/19 08/15/19 Range/Units 18:07 18:07 18:07 WBC 5.30 (4.0-11.0) K/uL RBC 4.16 L (4.50-5.90) M/uL Hgb 12.0 L (13.0-17.0) g/dL Hct 35.3 L (38.0-50.0) % MCV 84.9 (80.0-98.0) fL MCH 28.8 (27.0-32.0) pg MCHC 34.0 (31.0-37.0) g/dL RDW Std Deviation 51.6 (28.0-62.0) fl RDW Coeff of [place] 17 H (11.0-15.0) % Plt Count 234 (150-400) K/uL MPV 9.50 (7.40-12.00) fL Neut % (Auto) 52.1 (48.0-80.0) % Lymph % (Auto) 28.1 (16.0-40.0) % [place] % (Auto) 17.5 H (0.0-15.0) % Eos % (Auto) 1.9 (0.0-7.0) % Baso % (Auto) 0.4 (0.0-1.5) % Neut # (Auto) 2.8 (1.4-5.7) K/uL Lymph # (Auto) 1.5 (0.6-2.4) K/uL [place] # (Auto) 0.9 H (0.0-0.8) K/uL Eos # (Auto) 0.1 (0.0-0.7) K/uL Baso # (Auto) 0.0 (0.0-0.1) K/uL Nucleated RBC % 0.0 /100WBC Nucleated RBCs # 0 K/uL INR 0.92 VBG pH (7.31-7.41) VBG pCO2 (35-45) mmHG VBG pO2 (30-40) mmHG VBG HCO3 (22-30) mEq/L VBG Total CO2 (41-51) mmol/L VBG Base Excess (-3.0-3.0) Sodium 139 (136-148) mmol/L Potassium 4.1 (3.5-5.1) mmol/L Chloride 101 (98-107) mmol/L Carbon Dioxide 27.4 (21.0-32.0) mmol/L BUN 17 (7.0-18.0) mg/dL Creatinine 1.2 (0.8-1.3) mg/dL Est Cr Clr Drug Dosing 65.46 mL/min Estimated GFR (MDRD) > 60.0 ml/min Glucose 103 (74-106) mg/dL Calcium 9.5 (8.5-10.1) mg/dL Total Bilirubin 0.3 (0.2-1.0) mg/dL AST 25 (15-37) IU/L ALT 57 (14-63) IU/L Alkaline Phosphatase 80 (46-116) U/L Troponin I < 0.050 (0.000-0.056) ng/mL Total Protein 7.4 (6.4-8.2) g/dL Albumin 3.9 (3.4-5.0) g/dL Globulin 3.5 (2.6-4.0) g/dL Albumin/Globulin Ratio 1.1 (0.9-1.6) 08/15/19 Range/Units 19:05 WBC (4.0-11.0) K/uL RBC (4.50-5.90) M/uL Hgb (13.0-17.0) g/dL Hct (38.0-50.0) % MCV (80.0-98.0) fL MCH (27.0-32.0) pg MCHC (31.0-37.0) g/dL RDW Std Deviation (28.0-62.0) fl RDW Coeff of [place] (11.0-15.0) % Plt Count (150-400) K/uL MPV (7.40-12.00) fL Neut % (Auto) (48.0-80.0) % Lymph % (Auto) (16.0-40.0) % [place] % (Auto) (0.0-15.0) % Eos % (Auto) (0.0-7.0) % Baso % (Auto) (0.0-1.5) % Neut # (Auto) (1.4-5.7) K/uL Lymph # (Auto) (0.6-2.4) K/uL [place] # (Auto) (0.0-0.8) K/uL Eos # (Auto) (0.0-0.7) K/uL Baso # (Auto) (0.0-0.1) K/uL Nucleated RBC % /100WBC Nucleated RBCs # K/uL INR VBG pH 7.36 (7.31-7.41) VBG pCO2 52 H (35-45) mmHG VBG pO2 36 (30-40) mmHG VBG HCO3 29 (22-30) mEq/L VBG Total CO2 27 L (41-51) mmol/L VBG Base Excess 2.6 (-3.0-3.0) Sodium (136-148) mmol/L Potassium (3.5-5.1) mmol/L Chloride (98-107) mmol/L Carbon Dioxide (21.0-32.0) mmol/L BUN (7.0-18.0) mg/dL Creatinine (0.8-1.3) mg/dL Est Cr Clr Drug Dosing mL/min Estimated GFR (MDRD) ml/min Glucose (74-106) mg/dL Calcium (8.5-10.1) mg/dL Total Bilirubin (0.2-1.0) mg/dL AST (15-37) IU/L ALT (14-63) IU/L Alkaline Phosphatase (46-116) U/L Troponin I (0.000-0.056) ng/mL Total Protein (6.4-8.2) g/dL Albumin (3.4-5.0) g/dL Globulin (2.6-4.0) g/dL Albumin/Globulin Ratio (0.9-1.6) Meds: Medications Discontinued Medications Generic Name Dose Route Start Last Admin Trade Name Freq PRN Reason Stop Dose Admin Iopamidol 90 ml 08/15/19 22:12 08/15/19 22:12 Isovue-370 (76%) IVPUSH 08/15/19 22:13 90 ml ONETIME ONE Administration Departure - Departure Time of Disposition: 23:42 Disposition: DC/Tfer to Acute Hospital 02 Clinical Impression: Hypoxia, Hypoxemia, Mesothelioma - Discharge Information Referrals: Preston Carney MD [Primary Care Provider] - Forms: ED Department Discharge Sepsis Event Note - Focused Exam Date Exam was Performed: 08/15/19 Time Exam was Performed: 23:42 <Carmelo Shukla - Last Filed: 08/16/19 08:56> ED HPI GENERAL MEDICAL PROBLEM - General Source of Information: Reports: Patient History Limitations: Reports: No Limitations - History of Present Illness INITIAL COMMENTS - FREE TEXT/NARRATIVE: Patient is a 58-year-old male with a past medical history of mesothelioma status post partial lobectomy as well as currently on chemotherapy. Patient reports feeling short of breath for the past 2 days. Patient states the shortness of breath gradually gotten worse. Patient feels short of breath that is worse with exertion. Patient denies any associated chest pain with the symptoms. Patient denies any fevers, chills, cough, nausea, vomiting, lower extremity swelling. No prior history of DVT or PE. Patient does have prior history of 1 stent in his coronaries. In addition to that documented in the HPI above, the additional ROS was obtained : Constitutional: Denies fevers or chills Eyes: Denies vision changes ENMT: Denies sore throat CV: Denies chest pain Resp: Per HPI GI: Denies vomiting or diarrhea : Denies painful urination MSK: Denies recent trauma Skin: Denies new rashes Neuro: Denies new numbness or tingling or weakness Endocrine: Denies unexpected weight loss Heme: Denies bleeding disorders I have reviewed the triage vital signs Const: Well nourished, well developed, appears stated age Eyes: PERRL, no conjunctival injection HENT: NCAT, Neck supple without meningismus CV: RRR, Warm, well-perfused extremities RESP: CTAB, Unlabored respiratory effort GI: soft, non-tender, non-distended, no masses MSK: No gross deformities appreciated Skin: Warm, dry. No rashes Neuro: Alert, loan assistant II-XII grossly intact. Sensation and motor function of extremities grossly intact. Psych: Appropriate mood and affect Assessment and plan: Patient is a 58-year-old male with a chief complaint of shortness of breath. Patient desaturates into the mid 70s on pulse oximetry during ambulation. Patient is comfortable on nasal cannula and not in any sort of respiratory distress. Differential diagnosis include early pneumonia, pulmonary embolism, pneumothorax, acute coronary syndrome. Patient undergo lab testing including troponin, CBC, CMP. Patient will undergo chest x-ray and potentially CT scan to rule out pulmonary embolism depending on the findings of chest x-ray. Patient is not in need of acute intubation or BiPAP at this time. Patient will be signed out to Dr. Lugo pending lab results and chest x-ray results. Patient likely to require admission due to hypoxia. Right Back Pain Score (Numeric/FACES): 2 Past Medical History Other HEENT History: wears glasses Cardiovascular History: Reports: Hypertension, Stents Respiratory History: Reports: Sleep Apnea Gastrointestinal History: Reports: None Genitourinary History: Reports: None Musculoskeletal History: Reports: Fracture Other Musculoskeletal History: hx of alfredo fx legs and fx foot Neurological History: Reports: Concussion Psychiatric History: Reports: None Endocrine/Metabolic History: Reports: Obesity/BMI 30+ Hematologic History: Reports: None Immunologic History: Reports: None Oncologic (Cancer) History: Reports: None Dermatologic History: Reports: None - Infectious Disease History Infectious Disease History: Reports: Chicken Pox - Past Surgical History Head Surgeries/Procedures: Reports: None HEENT Surgical History: Reports: Tonsillectomy Cardiovascular Surgical History: Reports: None Respiratory Surgical History: Reports: Lung Resection GI Surgical History: Reports: None Male Surgical History: Reports: None Endocrine Surgical History: Reports: None Neurological Surgical History: Reports: None Musculoskeletal Surgical History: Reports: None Oncologic Surgical History: Reports: None Dermatological Surgical History: Reports: Other (See Below) Social & Family History - Family History Family Medical History: Noncontributory - Tobacco Use Smoking Status *Q: Former Smoker Years of Tobacco use: 40 Packs/Tins Daily: 1 Used Tobacco, but Quit: No Month/Year Tobacco Last Used: 7 months - Caffeine Use Caffeine Use: Reports: Coffee - Recreational Drug Use Recreational Drug Use: No - Living Situation & Occupation Living situation: Reports: Occupation: Employed ED ROS GENERAL - Review of Systems Review Of Systems: See Below ED EXAM, GENERAL - Physical Exam Exam: See Below Course - Orders/Labs/Meds Labs: Laboratory Tests 08/15/19 08/15/19 08/15/19 Range/Units 18:07 18:07 18:07 WBC 5.30 (4.0-11.0) K/uL RBC 4.16 L (4.50-5.90) M/uL Hgb 12.0 L (13.0-17.0) g/dL Hct 35.3 L (38.0-50.0) % MCV 84.9 (80.0-98.0) fL MCH 28.8 (27.0-32.0) pg MCHC 34.0 (31.0-37.0) g/dL RDW Std Deviation 51.6 (28.0-62.0) fl RDW Coeff of [place] 17 H (11.0-15.0) % Plt Count 234 (150-400) K/uL MPV 9.50 (7.40-12.00) fL Neut % (Auto) 52.1 (48.0-80.0) % Lymph % (Auto) 28.1 (16.0-40.0) % [place] % (Auto) 17.5 H (0.0-15.0) % Eos % (Auto) 1.9 (0.0-7.0) % Baso % (Auto) 0.4 (0.0-1.5) % Neut # (Auto) 2.8 (1.4-5.7) K/uL Lymph # (Auto) 1.5 (0.6-2.4) K/uL [place] # (Auto) 0.9 H (0.0-0.8) K/uL Eos # (Auto) 0.1 (0.0-0.7) K/uL Baso # (Auto) 0.0 (0.0-0.1) K/uL Nucleated RBC % 0.0 /100WBC Nucleated RBCs # 0 K/uL INR 0.92 VBG pH (7.31-7.41) VBG pCO2 (35-45) mmHG VBG pO2 (30-40) mmHG VBG HCO3 (22-30) mEq/L VBG Total CO2 (41-51) mmol/L VBG Base Excess (-3.0-3.0) Sodium 139 (136-148) mmol/L Potassium 4.1 (3.5-5.1) mmol/L Chloride 101 (98-107) mmol/L Carbon Dioxide 27.4 (21.0-32.0) mmol/L BUN 17 (7.0-18.0) mg/dL Creatinine 1.2 (0.8-1.3) mg/dL Est Cr Clr Drug Dosing 65.46 mL/min Estimated GFR (MDRD) > 60.0 ml/min Glucose 103 (74-106) mg/dL Calcium 9.5 (8.5-10.1) mg/dL Total Bilirubin 0.3 (0.2-1.0) mg/dL AST 25 (15-37) IU/L ALT 57 (14-63) IU/L Alkaline Phosphatase 80 (46-116) U/L Troponin I < 0.050 (0.000-0.056) ng/mL Total Protein 7.4 (6.4-8.2) g/dL Albumin 3.9 (3.4-5.0) g/dL Globulin 3.5 (2.6-4.0) g/dL Albumin/Globulin Ratio 1.1 (0.9-1.6) 08/15/19 Range/Units 19:05 WBC (4.0-11.0) K/uL RBC (4.50-5.90) M/uL Hgb (13.0-17.0) g/dL Hct (38.0-50.0) % MCV (80.0-98.0) fL MCH (27.0-32.0) pg MCHC (31.0-37.0) g/dL RDW Std Deviation (28.0-62.0) fl RDW Coeff of [place] (11.0-15.0) % Plt Count (150-400) K/uL MPV (7.40-12.00) fL Neut % (Auto) (48.0-80.0) % Lymph % (Auto) (16.0-40.0) % [place] % (Auto) (0.0-15.0) % Eos % (Auto) (0.0-7.0) % Baso % (Auto) (0.0-1.5) % Neut # (Auto) (1.4-5.7) K/uL Lymph # (Auto) (0.6-2.4) K/uL [place] # (Auto) (0.0-0.8) K/uL Eos # (Auto) (0.0-0.7) K/uL Baso # (Auto) (0.0-0.1) K/uL Nucleated RBC % /100WBC Nucleated RBCs # K/uL INR VBG pH 7.36 (7.31-7.41) VBG pCO2 52 H (35-45) mmHG VBG pO2 36 (30-40) mmHG VBG HCO3 29 (22-30) mEq/L VBG Total CO2 27 L (41-51) mmol/L VBG Base Excess 2.6 (-3.0-3.0) Sodium (136-148) mmol/L Potassium (3.5-5.1) mmol/L Chloride (98-107) mmol/L Carbon Dioxide (21.0-32.0) mmol/L BUN (7.0-18.0) mg/dL Creatinine (0.8-1.3) mg/dL Est Cr Clr Drug Dosing mL/min Estimated GFR (MDRD) ml/min Glucose (74-106) mg/dL Calcium (8.5-10.1) mg/dL Total Bilirubin (0.2-1.0) mg/dL AST (15-37) IU/L ALT (14-63) IU/L Alkaline Phosphatase (46-116) U/L Troponin I (0.000-0.056) ng/mL Total Protein (6.4-8.2) g/dL Albumin (3.4-5.0) g/dL Globulin (2.6-4.0) g/dL Albumin/Globulin Ratio (0.9-1.6) Meds: Medications Discontinued Medications Generic Name Dose Route Start Last Admin Trade Name Freq PRN Reason Stop Dose Admin Iopamidol 90 ml 08/15/19 22:12 08/15/19 22:12 Isovue-370 (76%) IVPUSH 08/15/19 22:13 90 ml ONETIME ONE Administration Sepsis Event Note - Evaluation Sepsis Screening Result: No Definite Risk - Focused Exam Date Exam was Performed: 08/16/19 Time Exam was Performed: 08:54
[2019-08-15 18:48] LABS: BLOOD UREA NITROGEN,BUN 17 mg/dL (7.0-18.0); CARBON DIOXIDE,CO2 27.4 mmol/L (21.0-32.0); CHLORIDE,CL 101 mmol/L (98-107); GLUCOSE RANDOM 103 mg/dL (74-106); POTASSIUM,K 4.1 mmol/L (3.5-5.1); SODIUM,NA 139 mmol/L (136-148)
--- NOTE | 2019-08-15 19:27 | CR ---
Chest: 2 views of the chest were obtained. Comparison: Prior chest CT of 06/20/19 and chest x-ray of 06/19/19. Chronic changes are seen within the right lung with prior surgery also noted. Elevated right hemidiaphragm is noted which is stable. Left lung remains clear with no acute parenchymal change. Right-sided PICC line is seen. Tip of the PICC line lies within superior vena cava. Heart size is not enlarged. Slight tortuosity of the thoracic aorta is seen. Impression: 1. Right PICC line which is satisfactory in position. 2. Chronic change within the right chest which is stable. 3. Nothing acute is appreciated. Diagnostic code #3 This report was dictated in [place] Standard Time
[2019-08-15 19:41] VITALS: BP 126/85; PULSE 70
--- NOTE | 2019-08-15 20:48 | PCM.SN ---
- Free Text/Narrative Note: procedure note. large bore iv above the forearm needed for a pulmonary angiogram. Nurse unable. Ultrasound used to identify a nice vein on medial side of distal upper arm on L, about 8 cm above the antecubital fossa. vein entered at about 2 cm depth, 1.5 inch 18 gague catheter placed under direct visualization on first pass. No comps, flows freely. secured. care transfered back to ED staff.
[2019-08-15] MEDS ORDERED: Iopamidol 755 Mg/ML 100 ML Bottle IVPUSH ONE (22:12)
--- NOTE | 2019-08-15 22:39 | CT ---
INDICATION: Shortness of breath and right back pain, history of cancer TECHNIQUE: CT chest pulmonary PE protocol acquired with 90 cc Isovue 370 IV contrast. COMPARISON: Chest radiograph from same date FINDINGS: Cardiovascular structures: Normal vascular enhancement of the pulmonary arteries, no sign of pulmonary embolism. Heart size is normal. No sign of aneurysm in the thoracic aorta. Right-sided PICC tip terminates at the level of the distal superior vena cava. Mediastinum and malcom: No mass or adenopathy. Calcified right hilar lymph nodes. Lungs: 4.1 x 1.3 cm mass in the right upper lung with areas of linear scarring around the mass. Surgical tangela in the right hilum with volume loss in the right hemithorax likely due to prior lung resection. Scattered linear atelectasis or scarring throughout the remainder of the right lung. The left lung is clear. Pleura and pericardium: Small loculated pneumothorax at the right lung apex. Chest wall and axilla: No mass or adenopathy. Upper abdomen: Elevated right hemidiaphragm. Bones: No significant findings. IMPRESSION: No pulmonary embolism or pneumonia. Masslike density in the right upper lung field may represent recurrent or residual lung cancer. There appear to be postoperative changes of partial right pneumonectomy. Small loculated pneumothorax at the right lung apex. Please note that all CT scans at this facility use dose modulation, iterative reconstruction, and/or weight-based dosing when appropriate to reduce radiation dose to as low as reasonably achievable. Dictated by Dipika Stephen MD @ Aug 15 2019 10:25PM Signed by Dr. Dipika Stephen @ Aug 15 2019 10:38PM
== END 2019-08-16 00:12 ==
LOC: MW.ED 17:50
DX: R09.02 Hypoxemia (principal); C45.9 Mesothelioma, unspecified; I10 Essential (primary) hypertension; E66.9 Obesity, unspecified; Z98.890 Other specified postprocedural states; Z95.5 Presence of coronary angioplasty implant and graft; Z79.899 Other long term (current) drug therapy; Z87.891 Personal history of nicotine dependence; Z79.82 Long term (current) use of aspirin
CPT/HCPCS: 71046; 71275; 80053; 82803; 84484; 85025; 85610; 93005; 99285; Q9967; 36410

== ENCOUNTER 2021-01-09 06:42 | Day surgery (SDC) | payer BC, OTHER, SELFPAY ==
[~2021-01-09 06:42] MED LIST: Lactated Ringers 1,000 ML IV SCH
[2021-01-09] MEDS ORDERED: Ondansetron 4 MG/2 ML SDV ONE (07:20)
[2021-01-09] MEDS ORDERED: Midazolam 1 MG/ML 2 ML SDV ONE (07:20)
[2021-01-09] MEDS ORDERED: Propofol 200 MG/20 ML SDV ONE (07:20)
[2021-01-09] MEDS ORDERED: fentaNYL 100 MCG/2 ML SDV ONE (07:20)
[2021-01-09] MEDS ORDERED: Lidocaine 2% 5 ML SDV ONE (07:21)
--- NOTE | 2021-01-09 07:28 | PCM.PREANE ---
Preanesthetic Assessment - Anesthesia/Transfusion/Family Hx Anesthesia History: Prior Anesthesia Reaction Family History of Anesthesia Reaction: No Transfusion History: No Prior Transfusion(s) - Physical Assessment NPO Status Date: 01/09/21 NPO Status Time: 00:01 Vital Signs: Last Vital Signs Temp 96.8 F L 01/09/21 06:55 Pulse 78 01/09/21 06:55 Resp 15 01/09/21 06:55 BP 141/67 H 01/09/21 06:55 Pulse Ox 95 01/09/21 06:55 Height: 5 ft 9 in Weight: 226 lb ASA Class: 3 Mental Status: Alert & Oriented x3 Airway Class: Mallampati = 3 Dentition: Reports: Broken Tooth/Teeth, Missing Tooth/Teeth ROM/Head Extension: Limited/Partial Lungs: Normal Respiratory Effort Cardiovascular: Regular Rhythm - Allergies Allergies/Adverse Reactions: Allergies Allergy/AdvReac Type Severity Reaction Status Date / Time No Known Allergies Allergy Verified 11/22/20 14:09 - Acknowledgements Anesthesia Type Planned: General Anesthesia Pt an Appropriate Candidate for the Planned Anesthesia: Yes Alternatives and Risks of Anesthesia Discussed w Pt/Guardian: Yes Pt/Guardian Understands and Agrees with Anesthesia Plan: Yes Additional Comments: npo htn RCA cardiac stent mar 2019 - found during routine workup for his lung surgery chavez hayfever tob quit jan 2019 etoh abt 10 beers a week obesity bmi 33 sounds like R pulmonary wedge resection for mesothelioma Apr 2019 s/p chemo - ended aug 2019 last plavix thursday exercises daily on treadmill no cp, sob, mcpherson par no questions PreAnesthesia Questionnaire HEENT History: Reports: Impaired Vision Other HEENT History: wears glasses Cardiovascular History: Reports: Hypertension, Stents Respiratory History: Reports: Other (See Below) Other Respiratory History: states had mesothelioma Gastrointestinal History: Reports: GERD Genitourinary History: Reports: None Musculoskeletal History: Reports: Fracture Other Musculoskeletal History: states fractured a leg when was 3 yrs old Neurological History: Reports: Concussion Psychiatric History: Reports: None Endocrine/Metabolic History: Reports: Obesity/BMI 30+ Hematologic History: Reports: None Immunologic History: Reports: None Oncologic (Cancer) History: Reports: Other (See Below) Other Oncologic History: mesothelioma Dermatologic History: Reports: None - Infectious Disease History Infectious Disease History: Reports: None - Past Surgical History Head Surgeries/Procedures: Reports: None HEENT Surgical History: Reports: Tonsillectomy Cardiovascular Surgical History: Reports: Coronary Artery Stent Other Respiratory Surgeries/Procedures: states had right lung lobectomy 2019 due to mesothelioma GI Surgical History: Reports: None Male Surgical History: Reports: None Endocrine Surgical History: Reports: None Neurological Surgical History: Reports: None Musculoskeletal Surgical History: Reports: None Oncologic Surgical History: Reports: None Dermatological Surgical History: Reports: Other (See Below) - SUBSTANCE USE Tobacco Use Status *Q: Former Tobacco User Recreational Drug Use History: No - HOME MEDS Home Medications: Home Meds Aspirin [Adult Low Dose Aspirin EC] 81 mg PO DAILY 06/19/19 [History] Clopidogrel [Plavix] 75 mg PO DAILY 06/19/19 [History] Metoprolol Succinate 50 mg PO DAILY 06/19/19 [History] amLODIPine [Norvasc] 5 mg PO DAILY 06/19/19 [History] atorvaSTATin Calcium [Lipitor] 40 mg PO DAILY 06/19/19 [History] - CURRENT (IN HOUSE) MEDS Current Meds: Current Medications Lactated Ringer's (Ringers, Lactated) 1,000 mls @ 125 mls/hr IV ASDIRECTED [facility] Last Admin: 01/09/21 07:05 Dose: 125 mls/hr Documented by:
--- NOTE | 2021-01-09 09:08 | PCM.POSTAN ---
POST ANESTHESIA ASSESSMENT - MENTAL STATUS Mental Status: Alert (no anesthetic problems), Oriented - VITAL SIGNS Vital Signs: Last Vital Signs Temp 98.2 F 01/09/21 08:55 Pulse 93 01/09/21 09:05 Resp 19 01/09/21 09:00 BP 118/73 01/09/21 09:05 Pulse Ox 93 L 01/09/21 09:05 - RESPIRATORY Respiratory Status: Respiratory Rate WNL, Airway Patent, O2 Saturation Stable - CARDIOVASCULAR CV Status: Pulse Rate WNL, Blood Pressure Stable - GASTROINTESTINAL GI Status: No Symptoms - POST OP HYDRATION Hydration Status: Adequate & Stable
--- NOTE | 2021-01-09 09:19 | PCM.OPNOTE ---
- General Post-Op/Procedure Note Date of Surgery/Procedure: 01/09/21 Operative Procedure(s): egd w bx. colonoscopy w snare polypectomy and bx anal mass Findings: see [id number] Pre Op Diagnosis: change in bowel habits and gerd Post-Op Diagnosis: Same Anesthesia Technique: Moderate Sedation Primary Surgeon: Marvin Oneal Pathology: 35 mm sessile mass at 25cm when withdrawal, tattooed 20mm pedunculated polyp at 10cm when withdrawal 35mm anal mass, biopsyed various polypsat 45c, 35, 25, cold biopsy forcept removed Complications: None Condition: Good
[2021-01-09 09:29] VITALS: BP 120/63; PULSE 72
--- NOTE | 2021-01-09 09:56 | PCM48HPAN ---
Post Anesthesia Note - EVALUATION WITHIN 48HRS OF ANESTHETIC Vital Signs in Normal Range: Yes Patient Participated in Evaluation: Yes Respiratory Function Stable: Yes Airway Patent: Yes Cardiovascular Function Stable: Yes Hydration Status Stable: Yes Pain Control Satisfactory: Yes Nausea and Vomiting Control Satisfactory: Yes Mental Status Recovered: Yes Vital Signs: Last Vital Signs Temp 97.2 F 01/09/21 09:18 Pulse 72 01/09/21 09:18 Resp 14 01/09/21 09:18 BP 120/63 01/09/21 09:18 Pulse Ox 92 L 01/09/21 09:18
--- NOTE | 2021-01-09 14:28 | OR ---
SURGEON: Marvin Oneal MD DATE OF PROCEDURE: 01/09/2021 PREOPERATIVE DIAGNOSES: Increased constipation and gastroesophageal reflux disease. PROCEDURES PERFORMED: 1. Esophagogastroduodenoscopy with biopsy. 2. Colonoscopy with snare polypectomy and biopsy. DESCRIPTION OF PROCEDURE: EGD: The patient was taken to the endoscopy room, and with the [employer]W, Diprivan was administered. A well-lubricated EGD scope was gently inserted through the oropharynx, down the esophagus, passing through the gastroesophageal junction, into the stomach. The mucosa was examined upon the passage. Any etiology will be noted. Once in the stomach, we continued to advance to the distal antrum, passed through the pylorus into the second portion of the duodenum. Again, the mucosa was examined for any abnormality and etiology. The scope was then retrieved back to the stomach and then retroflexed to look at the fundus of the stomach. If a biopsy was indicated, we will biopsy the antrum, body, and gastroesophageal junction. The air will be sucked out while the scope is retrieved to reduce the patient's discomfort. The patient tolerated the procedure well. There were no intraoperative complications. Dr. Oneal was present through the whole procedure. Prior to surgery, a time-out had been called, the patient identified, procedure identified and antibiotic administered. Colonoscopy: The patient was taken to the endoscopy room. A time out was called, patient identified, and procedure identified. Diprivan was then administrated. Patient went from awake to sleep, hearing doctor talking or door closing is normal. Perineum inspection and digital examination were then performed. A well-lubricated colonoscope was gently inserted through the rectum, advanced past the rectosigmoid junction, the descending colon, splenic flexure, transverse colon, hepatic flexure, ascending colon, arrived to the cecum. Cecum was identified as dictated in the finding. Then the scope was carefully withdrawn while attention was paid to the mucosal surface for any abnormality. Air will be sucked out during the scope withdrawal. At the rectum, retroflexed to examine any rectal diseases, fistula or hemorrhoids. During mucosal examination, abnormality or polyp encountered. Using snare equipment, the abnormality or the polyp was then snared off using electrocautery. The patient tolerated procedure well. There were no intraoperative complications, and Dr. Oneal was present throughout the whole procedure. FINDINGS: EGD findings: 1. The patient is easily sedated with [employer]W and Diprivan. The patient is soundly snoring. 2. Oropharynx and proximal esophagus are free of disease, stricture, inflammation, and distal esophagus shows characteristic of Schatzki ring and some skip lesions, and concern about Newton esophagitis. The GE junction looks pretty benign, although with some skip lesions and some salmon-colored change, suggests acid reflux. No esophagitis. Of note, at this time, the endoscopy system has a technical problem, cannot take pictures. Stomach rugae look alright but a little bit of hypertrophy. Antrum two to three areas looked like it is a healed ulcer, not quentin ulcer. Duodenum looks grossly normal. Retroflexed look at the fundus of stomach, there is no hiatal hernia. Biopsy done at antrum, body, GE junction at 40, and sucked out the gas while scope pulling out. During the whole study, there is no food or blood observed. There is some bile in the stomach. Colonoscopy findings: 1. The patient is easily sedated with [employer] and Diprivan, the patient is soundly snoring. 2. Bowel prep is left to be desirable. It is acceptable but is a little bit below average, basically looked like very concentrated egg drop soup. Large amount of yellow liquid stool sometimes compromised the study, although they can be irrigated. Colon is very challenging around the rectosigmoid junction because of tremendous amount of diverticulosis. No signs or symptoms of diverticulitis. Cecum indicated by ileocecal fold, one-to-one indentation, appendiceal orifice and ileocecal valve, and ScopeGuide is pointing south. Mucosa examined upon scope pulling out and the patient has quite a lot of polyps and some of them are pretty big. First diverticulosis is mainly on the left colon. No signs or symptoms of diverticulitis; no transverse colon, no right colon, it is only on the left. A 5 mm sessile polyp at distance 45 cm when scope come out, biopsied. 5 mm sessile polyp at distance 35 cm when scope come coming out and biopsied, removed; both by cold biopsy forceps. The first one and second one both cold biopsy forceps removed; and then at 25 cm, there is a 25 mm polyp, sessile, and snared and snare removed and inked. Then, another 5 mm sessile polyp very close to the 25 cm distant, removed with cold biopsy forceps; and then at 10 cm, there is a 20 mm pedunculated polyp and snared and removed. Last one is a 35 mm mass at the anus, not even in the rectum. It could be a condyloma acuminata and the anal mass was only biopsied. We will discuss all this management upon return. TAMI / DUY /[id number]
== END 2021-01-09 09:56 | disposition home or self-care (01) ==
LOC: MW.SDS 06:42
PROVIDERS: ATTEND Surgery
DX: D12.6 Benign neoplasm of colon, unspecified (principal); K62.0 Anal polyp; K20.90 Esophagitis, unspecified without bleeding; K31.89 Other diseases of stomach and duodenum; K57.30 Diverticulosis of large intestine without perforation or abscess without bleeding; I10 Essential (primary) hypertension; F17.210 Nicotine dependence, cigarettes, uncomplicated; Z79.82 Long term (current) use of aspirin; Z79.899 Other long term (current) drug therapy
CPT/HCPCS: 43239; 45380; 45385; 88305; J2250; J2405; J2704; J3010; J7120; 00813

== ENCOUNTER 2021-06-06 16:14 | Inpatient (IN) | payer BC ==
--- NOTE | 2021-06-06 18:14 | PCM.EKG ---
#1 Interpretation Time: 18:01 EKG Interpretation Comments: 118, sinus tachycardia, nonspecific ST/T findings
[2021-06-06] MEDS ORDERED: Sodium Chloride 0.9% 1,000 ML IV ONE (18:21)
--- NOTE | 2021-06-06 18:23 | EDM.PDOC ---
ED HPI GENERAL MEDICAL PROBLEM - General Chief Complaint: Respiratory Problem Stated Complaint: SOB Time Seen by Provider: 06/06/21 17:59 Source of Information: Reports: Patient History Limitations: Reports: No Limitations - History of Present Illness INITIAL COMMENTS - FREE TEXT/NARRATIVE: HISTORY AND PHYSICAL: History of present illness: Patient is a 60-year-old male who presents to the emergency room with complaints of chest pain, shortness of breath, tachycardia and hypoxia x 2 weeks. Patient states he has a history of mesothelioma and recently started radiation therapy this last week. This was his initial course of radiation. He states he did inform the oncology nurses of his symptoms, was told that these are typical adverse reactions from receiving radiation therapy. He states the shortness of breath is persistent although exacerbated with any type of physical activity/movement. Chest pain does not radiate, worse with physical activity and describes it as a tight sensation around his chest. Today the patient was checking his oxygen saturation at home and said it was in the mid 80s. Pulse rate was in the 110's to 120s. He decided to come to the emergency room for evaluation. Patient denies any fever, chills, headache, change in vision, syncope or near syncope. Denies any chest pain, back pain, shortness of breath or cough. Denies any abdominal pain, nausea, vomiting, diarrhea, constipation or dysuria. Has not noted any blood in urine or stool. Patient has been eating and drinking appropriately. No recent travel or sick contacts. Review of systems: As per history of present illness and below otherwise all systems reviewed and negative. Past medical history: As per history of present illness and as reviewed below otherwise noncontribut ory. Surgical history: As per history of present illness and as reviewed below otherwise noncontributory. Social history: See social history for further information Family history: As per history of present illness and as reviewed below otherwise noncontributory. Physical exam: General: Well developed and well nourished 60-year-old male. Alert and orientated x 3. Nontoxic in appearance and in no acute distress. Vital signs are stable and have been reviewed by me. Nursing notes were reviewed. HEENT: Atraumatic, normocephalic, pupils equal and reactive bilaterally, negative for conjunctival pallor or scleral icterus, mucous membranes dry, TMs normal bilaterally, throat clear, neck supple, nontender, trachea midline. No drooling or trismus noted. No meningeal signs. No hot potato voice noted. Lungs: Diminished with poor air exchange to auscultation bilaterally. Moderate work of breathing, no accessory muscles used. Heart: S1S2, regular rate and rhythm without overt murmur, gallops, or rubs. No JVD. No peripheral edema Abdomen: Soft, nondistended, nontender. Normoactive bowel sounds. Negative for masses or costovertebral tenderness. Skin: Intact, warm, dry. No lesions or rashes noted. Hematologic: No petechiae or purpra. Mucosa appropriate color and normal nail bed color and refill. Extremities: Atraumatic, moves all extremities per self without difficulty or deficits, negative for cords or calf pain. Neurovascular unremarkable. Neuro: Awake, alert, oriented. Cranial nerves II through XII unremarkable. Cerebellum unremarkable. Motor and sensory unremarkable throughout. Exam nonfocal. Psychiatric: Mood and affect are appropriate. Normal thought process. Answering questions appropriately. Please note that the patient was seen and evaluated during the 2019 SARS-CoV-2 novel coronavirus pandemic period. Community viral transmission is ongoing at time of this encounter and the emergency department is operating under pandemic response procedures. Medical Decision Making: Patient is a 60-year-old male who presents to the emergency room with complaints of shortness of breath, chest pain, tachycardia and hypoxia for the past 2 weeks. Upon arrival the patient appears dyspneic with the recent ambulation and repositioning on the bed. Lung sounds are diminished with poor air exchange throughout. Patient is 92% on room air with pulse in the 1 teens. He has no personal history of blood clots currently takes Plavix for a OH he had in 2019. Due to patient's extensive lung history I will do a CTA of the chest with cardiac work-up and swab for COVID-19. Patient does have a leukocytosis of 14, blood cultures and lactate have been added. CT chest is pending. CT chest shows new irregular nodular opacities scattered throughout both lungs, most likely representing infectious infiltrates. COVID-19 pneumonia is a consideration. Correlate clinically. Increased pleural nodularity along the right major and minor fissures and along the peripheral aspect of the right lower lobe, concerning for malignancy progression. Bronchial wall thickening in the right middle and lower lobes is also slightly worsened. No evidence of pulmonary thromboembolism. Antibiotics have been ordered. I have talked with the patient about today's findings, in addition to providing specific details for plan of care. Reassessment at the time of disposition demonstrates that the patient is in no acute distress. Dr Bay was consulted on this case, he is agreeable to keeping patient for further care and management Diagnostics: CBC, CMP, Mg, Troponin, EKG, CT chest, COVID Therapeutics: NS, azithromycin, Rocephin Impression: Pneumonia Hx Mesothelioma Plan: Inpatient admission to med/surg Definitive disposition and diagnosis as appropriate pending reevaluation and review of above. Abdomen Pain Score (Numeric/FACES): 3 - Related Data Allergies Allergy/AdvReac Type Severity Reaction Status Date / Time No Known Allergies Allergy Verified 11/22/20 14:09 Home Meds: Home Meds Clopidogrel [Plavix] 75 mg PO DAILY 06/19/19 [History] Metoprolol Succinate 50 mg PO DAILY 06/19/19 [History] amLODIPine [Norvasc] 5 mg PO DAILY 06/19/19 [History] atorvaSTATin Calcium [Lipitor] 40 mg PO DAILY 06/19/19 [History] Aspirin 81 mg PO 06/06/21 [History] Esomeprazole [NexIUM] 40 mg PO 06/06/21 [History] Sennosides [Senokot] 8.6 mg PO 06/06/21 [History] Past Medical History HEENT History: Reports: Impaired Vision Other HEENT History: wears glasses Cardiovascular History: Reports: Hypertension, Stents Respiratory History: Reports: Other (See Below) Other Respiratory History: states had mesothelioma Gastrointestinal History: Reports: GERD Genitourinary History: Reports: None Musculoskeletal History: Reports: Fracture Other Musculoskeletal History: states fractured a leg when was 3 yrs old Neurological History: Reports: Concussion Psychiatric History: Reports: None Endocrine/Metabolic History: Reports: Obesity/BMI 30+ Hematologic History: Reports: None Immunologic History: Reports: Other (See Below) Other Immunologic History: mesothelioma. most recent treatment was radiation and immunotherapy in May Oncologic (Cancer) History: Reports: Other (See Below) Other Oncologic History: mesothelioma Dermatologic History: Reports: None - Infectious Disease History Infectious Disease History: Reports: None - Past Surgical History Head Surgeries/Procedures: Reports: None HEENT Surgical History: Reports: Tonsillectomy Cardiovascular Surgical History: Reports: Coronary Artery Stent Other Respiratory Surgeries/Procedures: states had right lung lobectomy 2019 due to mesothelioma GI Surgical History: Reports: None Male Surgical History: Reports: None Endocrine Surgical History: Reports: None Neurological Surgical History: Reports: None Musculoskeletal Surgical History: Reports: None Oncologic Surgical History: Reports: None Dermatological Surgical History: Reports: Other (See Below) Social & Family History - Family History Family Medical History: No Pertinent Family History - Tobacco Use Tobacco Use Status *Q: Former Tobacco User Used Tobacco, but Quit: Yes Month/Year Tobacco Last Used: 2 years ago - Caffeine Use Caffeine Use: Reports: Coffee - Living Situation & Occupation Living situation: Reports: Occupation: Employed ED ROS GENERAL - Review of Systems Review Of Systems: Comprehensive ROS is negative, except as noted in HPI. ED EXAM, GENERAL - Physical Exam Exam: See Below (see dictation) Course - Vital Signs Last Recorded V/S: Last Vital Signs Temp 100.8 F H 06/06/21 20:17 Pulse 111 H 06/06/21 20:17 Resp 18 06/06/21 20:17 BP 140/64 06/06/21 16:47 Pulse Ox 95 06/06/21 20:17 - Orders/Labs/Meds Orders: Active Orders 24 hr Category Date Time Status Patient Status [ADT] Stat ADT 06/06/21 21:07 Ordered CULTURE BLOOD [BC] Stat Lab 06/06/21 18:10 Received CULTURE BLOOD [BC] Stat Lab 06/06/21 18:43 Received Azithromycin [Zithromax] 500 mg Med 06/06/21 21:15 Ordered Sodium Chloride 0.9% [Normal Saline AdvBag] 250 ml IV ONETIME cefTRIAXone [Rocephin in Dextrose,Iso-Osm 1 GM/50 ML] 1 Med 06/06/21 21:07 Ordered gm Premix Bag 1 bag IV ONETIME Blood Culture x2 Reflex Set [OM.PC] Stat Oth 06/06/21 20:08 Ordered Labs: Laboratory Tests 06/06/21 06/06/21 06/06/21 Range/Units 18:00 18:10 18:10 WBC 14.74 H (4.0-11.0) K/uL RBC 4.66 (4.50-5.90) M/uL Hgb 14.4 (13.0-17.0) g/dL Hct 42.3 (38.0-50.0) % MCV 90.8 (80.0-98.0) fL MCH 30.9 (27.0-32.0) pg MCHC 34.0 (31.0-37.0) g/dL RDW Std Deviation 43.7 (28.0-62.0) fl RDW Coeff of [place] 13 (11.0-15.0) % Plt Count 345 (150-400) K/uL MPV 9.80 (7.40-12.00) fL Neut % (Auto) 75.0 (48.0-80.0) % Lymph % (Auto) 5.6 L (16.0-40.0) % [place] % (Auto) 13.3 (0.0-15.0) % Eos % (Auto) 5.8 (0.0-7.0) % Baso % (Auto) 0.3 (0.0-1.5) % Neut # (Auto) 11.1 H (1.4-5.7) K/uL Lymph # (Auto) 0.8 (0.6-2.4) K/uL [place] # (Auto) 2.0 H (0.0-0.8) K/uL Eos # (Auto) 0.9 H (0.0-0.7) K/uL Baso # (Auto) 0.0 (0.0-0.1) K/uL Nucleated RBC % 0.0 /100WBC Nucleated RBCs # 0 K/uL Sodium 136 (136-148) mmol/L Potassium 3.8 (3.5-5.1) mmol/L Chloride 97 L (98-107) mmol/L Carbon Dioxide 29.7 (21.0-32.0) mmol/L BUN 13 (7.0-18.0) mg/dL Creatinine 1.3 (0.8-1.3) mg/dL Est Cr Clr Drug Dosing TNP Estimated GFR (MDRD) 55.9 ml/min Glucose 138 H (74-106) mg/dL Lactic Acid (0.4-2.0) mmol/L Calcium 8.7 (8.5-10.1) mg/dL Magnesium 1.9 (1.8-2.4) mg/dL Total Bilirubin 1.0 (0.2-1.0) mg/dL AST 23 (15-37) IU/L ALT 28 (14-63) IU/L Alkaline Phosphatase 96 (46-116) U/L Troponin I < 0.050 (0.000-0.056) ng/mL Total Protein 8.4 H (6.4-8.2) g/dL Albumin 3.2 L (3.4-5.0) g/dL Globulin 5.2 H (2.6-4.0) g/dL Albumin/Globulin Ratio 0.6 L (0.9-1.6) Urine Color Urine Appearance Urine pH (5.0-8.0) Ur Specific [place] (1.001-1.035) Urine Protein (NEGATIVE) mg/dL Urine Glucose (UA) (NEGATIVE) mg/dL Urine Ketones (NEGATIVE) mg/dL Urine Occult Blood (NEGATIVE) Urine Nitrite (NEGATIVE) Urine Bilirubin (NEGATIVE) Urine Urobilinogen (<2.0) EU/dL Ur Leukocyte Esterase (NEGATIVE) Urine RBC (0-2/HPF) Urine WBC (0-5/HPF) Ur Epithelial Cells (NONE-FEW) Urine Bacteria (NEGATIVE) SARS-CoV-2 RNA (ANTHONY) NEGATIVE (NEGATIVE) 06/06/21 06/06/21 Range/Units 18:10 20:15 WBC (4.0-11.0) K/uL RBC (4.50-5.90) M/uL Hgb (13.0-17.0) g/dL Hct (38.0-50.0) % MCV (80.0-98.0) fL MCH (27.0-32.0) pg MCHC (31.0-37.0) g/dL RDW Std Deviation (28.0-62.0) fl RDW Coeff of [place] (11.0-15.0) % Plt Count (150-400) K/uL MPV (7.40-12.00) fL Neut % (Auto) (48.0-80.0) % Lymph % (Auto) (16.0-40.0) % [place] % (Auto) (0.0-15.0) % Eos % (Auto) (0.0-7.0) % Baso % (Auto) (0.0-1.5) % Neut # (Auto) (1.4-5.7) K/uL Lymph # (Auto) (0.6-2.4) K/uL [place] # (Auto) (0.0-0.8) K/uL Eos # (Auto) (0.0-0.7) K/uL Baso # (Auto) (0.0-0.1) K/uL Nucleated RBC % /100WBC Nucleated RBCs # K/uL Sodium (136-148) mmol/L Potassium (3.5-5.1) mmol/L Chloride (98-107) mmol/L Carbon Dioxide (21.0-32.0) mmol/L BUN (7.0-18.0) mg/dL Creatinine (0.8-1.3) mg/dL Est Cr Clr Drug Dosing Estimated GFR (MDRD) ml/min Glucose (74-106) mg/dL Lactic Acid 1.4 (0.4-2.0) mmol/L Calcium (8.5-10.1) mg/dL Magnesium (1.8-2.4) mg/dL Total Bilirubin (0.2-1.0) mg/dL AST (15-37) IU/L ALT (14-63) IU/L Alkaline Phosphatase (46-116) U/L Troponin I (0.000-0.056) ng/mL Total Protein (6.4-8.2) g/dL Albumin (3.4-5.0) g/dL Globulin (2.6-4.0) g/dL Albumin/Globulin Ratio (0.9-1.6) Urine Color YELLOW Urine Appearance CLEAR Urine pH 6.5 (5.0-8.0) Ur Specific [place] 1.010 (1.001-1.035) Urine Protein TRACE H (NEGATIVE) mg/dL Urine Glucose (UA) NEGATIVE (NEGATIVE) mg/dL Urine Ketones NEGATIVE (NEGATIVE) mg/dL Urine Occult Blood NEGATIVE (NEGATIVE) Urine Nitrite NEGATIVE (NEGATIVE) Urine Bilirubin NEGATIVE (NEGATIVE) Urine Urobilinogen 0.2 (<2.0) EU/dL Ur Leukocyte Esterase NEGATIVE (NEGATIVE) Urine RBC 0-1 (0-2/HPF) Urine WBC NONE SEEN (0-5/HPF) Ur Epithelial Cells RARE (NONE-FEW) Urine Bacteria RARE (NEGATIVE) SARS-CoV-2 RNA (ANTHONY) (NEGATIVE) Meds: Medications Discontinued Medications Generic Name Dose Route Start Last Admin Trade Name Freq PRN Reason Stop Dose Admin Sodium Chloride 1,000 mls @ 999 mls/hr 06/06/21 18:21 06/06/21 18:41 Normal Saline IV 06/06/21 19:21 999 mls/hr STAT ONE Administration Iopamidol 75 ml 06/06/21 19:57 06/06/21 19:57 Iopamidol 755 Mg/Ml 500 Ml Multipack Bottle IVPUSH 06/06/21 19:58 75 ml ONETIME STA Administration Departure - Departure Time of Disposition: 21:19 Disposition: Admitted As Inpatient 64 Clinical Impression: Pneumonia, History of malignant mesothelioma Referrals: Preston Carney MD [Primary Care Provider] - Forms: ED Department Discharge Sepsis Event Note (ED) - Evaluation Sepsis Screening Result: No Definite Risk - Focused Exam Vital Signs: Vital Signs Temp Pulse Resp BP Pulse Ox 06/06/21 20:17 100.8 F H 111 H 18 95 06/06/21 16:47 110 H 140/64 92 L - My Orders Last 24 Hours: My Active Orders 06/06/21 18:10 CULTURE BLOOD [BC] Stat 06/06/21 18:43 CULTURE BLOOD [BC] Stat 06/06/21 20:08 Blood Culture x2 Reflex Set [OM.PC] Stat 06/06/21 21:07 Patient Status [ADT] Stat cefTRIAXone [Rocephin in Dextrose,Iso-Osm 1 GM/50 ML] 1 gm Premix Bag 1 bag IV ONETIME 06/06/21 21:15 Azithromycin [Zithromax] 500 mg Sodium Chloride 0.9% [Normal Saline AdvBag] 250 ml IV ONETIME - Assessment/Plan Last 24 Hours: My Active Orders 06/06/21 18:10 CULTURE BLOOD [BC] Stat 06/06/21 18:43 CULTURE BLOOD [BC] Stat 06/06/21 20:08 Blood Culture x2 Reflex Set [OM.PC] Stat 06/06/21 21:07 Patient Status [ADT] Stat cefTRIAXone [Rocephin in Dextrose,Iso-Osm 1 GM/50 ML] 1 gm Premix Bag 1 bag IV ONETIME 06/06/21 21:15 Azithromycin [Zithromax] 500 mg Sodium Chloride 0.9% [Normal Saline AdvBag] 250 ml IV ONETIME
[2021-06-06 19:01] LABS: BLOOD UREA NITROGEN,BUN 13 mg/dL (7.0-18.0); CARBON DIOXIDE,CO2 29.7 mmol/L (21.0-32.0); CHLORIDE,CL 97 mmol/L (98-107); GLUCOSE RANDOM 138 mg/dL (74-106); POTASSIUM,K 3.8 mmol/L (3.5-5.1); SODIUM,NA 136 mmol/L (136-148)
[2021-06-06] MEDS ORDERED: Iopamidol 755 MG/ML 500 ML Multipack Bottle IVPUSH STA (19:57)
--- NOTE | 2021-06-06 20:58 | CT ---
INDICATION: Shortness of breath, hypoxia, tachypnea, history of mesothelioma TECHNIQUE: Contrast enhanced axial CT imaging through the chest, optimized for assessment of the pulmonary arterial tree. 75 mL Isovue 370 contrast agent was administered intravenously. Sagittal and coronal reconstructions are provided. COMPARISON: CT chest with contrast 07/26/2020 FINDINGS: There is adequate opacification of the pulmonary arterial tree without evidence of thromboembolism. The main pulmonary artery is nonenlarged. The heart is normal in size. There is no pericardial effusion. Coronary artery calcification is noted. The thoracic aorta is normal in caliber. Numerous mildly enlarged lymph nodes noted throughout the mediastinum and bilateral pulmonary, significantly increased since prior examination. Lymph node calcifications in the subcarinal station intra pulmonary hilum are unchanged. Surgical changes are again noted to the right hemithorax with partial resection of 6th rib. There is stable degree of volume loss and right hemidiaphragmatic elevation. Again demonstrated are thick bandlike opacity in the upper lung, likely representing scarring. There is increased pleural nodularity along the right major and minor fissures and along the peripheral aspect of the right lower lobe, concerning for malignancy progression. Bronchial wall thickening is also noted in the right middle and lower lobes, slightly worsened. New irregular nodular opacities scattered throughout both lungs most likely represent infectious infiltrates. The thoracic osseous structures are unremarkable. A few nonspecific borderline enlarged lymph nodes are noted in the upper abdomen. IMPRESSION: 1. New irregular nodular opacities scattered throughout both lungs, most likely representing infectious infiltrates. COVID-19 pneumonia is a consideration. Correlate clinically. 2. Increased pleural nodularity along the right major and minor fissures and along the peripheral aspect of the right lower lobe, concerning for malignancy progression. Bronchial wall thickening in the right middle and lower lobes is also slightly worsened. 3. No evidence of pulmonary thromboembolism. Please note that all CT scans at this facility use dose modulation, iterative reconstruction, and/or weight-based dosing when appropriate to reduce radiation dose to as low as reasonably achievable. Dictated by Riaz Hammonds MD @ 06/06/2021 8:56:34 PM (Electronically Signed)
[2021-06-06] MEDS ORDERED: cefTRIAXone 1 GM in Premix Bag 1 BAG IV ONE (21:07)
[2021-06-06] MEDS ORDERED: Azithromycin 500 MG in Sodium Chloride 0.9% 250 ML IV SCH (21:15)
[2021-06-07] MEDS ORDERED: Acetaminophen 500 MG Tab PO PRN (01:22)
[2021-06-07] MEDS ORDERED: Ibuprofen 200 MG Tab PO PRN (07:38)
[2021-06-07 07:54] LABS: BLOOD UREA NITROGEN,BUN 10 mg/dL (7.0-18.0); CARBON DIOXIDE,CO2 27.9 mmol/L (21.0-32.0); CHLORIDE,CL 101 mmol/L (98-107); GLUCOSE RANDOM 98 mg/dL (74-106); POTASSIUM,K 4.5 mmol/L (3.5-5.1); SODIUM,NA 139 mmol/L (136-148)
[2021-06-07] MEDS: Aspirin 81 MG Tab.Chew PO SCH (09:23)
[2021-06-07] MEDS: Clopidogrel 75 MG Tab PO SCH (09:24)
[2021-06-07] MEDS: atorvaSTATin 40 MG Tab PO SCH (09:24)
[2021-06-07] MEDS: amLODIPine 5 MG Tab PO SCH (09:24)
[2021-06-07] MEDS: Metoprolol Succinate 50 MG Tab.ER PO SCH (09:24)
[2021-06-07] MEDS: Omeprazole 20 MG Cap.CR PO SCH (09:24)
[2021-06-07] MEDS ORDERED: Acetaminophen 325 MG Tab PO PRN (10:32)
--- NOTE | 2021-06-07 10:38 | PCM.HP.2 ---
H&P History of Present Illness - General Date of Service: 06/07/21 Admit Problem/Dx: Admission Diagnosis/Problem Admission Diagnosis/Problem Pneumonia - History of Present Illness Initial Comments - Free Text/Narative: 60 yo male who was diagnosed with mesothelioma in 2018, s/p resection and chemotherapy. In January had reoccurrence and has been on immunotherapy and xrt. For past three weeks has had having lower right thoracic back pain. It is not pleuritic in nature. He denies any fevers, chills, cough, or shortness of breath but has noted decreasing oxygen sats to lower 90s at home. In the ED he was found to be satting 88%. CT angio reported no PE but new bilateral nodularities concerning for infection. He has been vaccinated for COVID and is COVID negative. Abdomen Pain Score (Numeric/FACES): 4 Back Pain Score (Numeric/FACES): 6 - Related Data Allergies/Adverse Reactions: Allergies Allergy/AdvReac Type Severity Reaction Status Date / Time No Known Allergies Allergy Verified 06/07/21 00:11 Home Medications: Home Meds Clopidogrel [Plavix] 75 mg PO DAILY 06/19/19 [History] Metoprolol Succinate 50 mg PO DAILY 06/19/19 [History] amLODIPine [Norvasc] 5 mg PO DAILY 06/19/19 [History] atorvaSTATin Calcium [Lipitor] 40 mg PO DAILY 06/19/19 [History] Aspirin 81 mg PO DAILY 06/06/21 [History] Esomeprazole [NexIUM] 40 mg PO DAILY 06/06/21 [History] Sennosides [Senokot] 8.6 mg PO BID PRN 06/06/21 [History] Acetaminophen 500 mg PO Q6H PRN 06/07/21 [History] Past Medical History HEENT History: Reports: Impaired Vision Other HEENT History: wears glasses Cardiovascular History: Reports: Hypertension, Stents Respiratory History: Reports: Other (See Below) Other Respiratory History: states had mesothelioma Gastrointestinal History: Reports: GERD Genitourinary History: Reports: None Musculoskeletal History: Reports: Fracture Other Musculoskeletal History: states fractured a leg when was 3 yrs old Neurological History: Reports: Concussion Psychiatric History: Reports: None Endocrine/Metabolic History: Reports: Obesity/BMI 30+ Hematologic History: Reports: None Immunologic History: Reports: Other (See Below) Other Immunologic History: mesothelioma. most recent treatment was radiation and immunotherapy in May Oncologic (Cancer) History: Reports: Other (See Below) Other Oncologic History: mesothelioma Dermatologic History: Reports: None - Infectious Disease History Infectious Disease History: Reports: None - Past Surgical History Head Surgeries/Procedures: Reports: None HEENT Surgical History: Reports: Tonsillectomy Cardiovascular Surgical History: Reports: Coronary Artery Stent Other Respiratory Surgeries/Procedures: states had right lung lobectomy 2019 due to mesothelioma GI Surgical History: Reports: None Male Surgical History: Reports: None Endocrine Surgical History: Reports: None Neurological Surgical History: Reports: None Musculoskeletal Surgical History: Reports: None Oncologic Surgical History: Reports: None Dermatological Surgical History: Reports: Other (See Below) Social & Family History - Family History Family Medical History: No Pertinent Family History - Tobacco Use Tobacco Use Status *Q: Former Tobacco User Used Tobacco, but Quit: Yes Month/Year Tobacco Last Used: 40 - Caffeine Use Caffeine Use: Reports: Coffee - Recreational Drug Use Recreational Drug Use: No - Living Situation & Occupation Living situation: Reports: Occupation: Employed H&P Review of Systems - Review of Systems: Review Of Systems: Comprehensive ROS is negative, except as noted in HPI. Exam - Exam Exam: See Below - Vital Signs Vital Signs: Last Vital Signs Temp 36.7 C 06/07/21 09:20 Pulse 114 H 06/07/21 09:24 Resp 20 06/07/21 09:20 BP 111/66 06/07/21 09:24 Pulse Ox 95 06/07/21 09:20 Weight: 95.436 kg - Exam General: Alert, Oriented HEENT: Mucosa Moist & [place] Neck: Supple Lungs: Clear to Auscultation, Normal Respiratory Effort Cardiovascular: Regular Rate, Regular Rhythm GI/Abdominal Exam: Normal Bowel Sounds, Soft, Non-Tender Extremities: Non-Tender, No Pedal Edema Skin: Warm, Dry, Intact - Patient Data Lab Results Last 24 hrs: Laboratory Results - last 24 hr 06/06/21 06/06/21 06/06/21 Range/Units 18:00 18:10 18:10 WBC 14.74 H (4.0-11.0) K/uL RBC 4.66 (4.50-5.90) M/uL Hgb 14.4 (13.0-17.0) g/dL Hct 42.3 (38.0-50.0) % MCV 90.8 (80.0-98.0) fL MCH 30.9 (27.0-32.0) pg MCHC 34.0 (31.0-37.0) g/dL RDW Std Deviation 43.7 (28.0-62.0) fl RDW Coeff of [place] 13 (11.0-15.0) % Plt Count 345 (150-400) K/uL MPV 9.80 (7.40-12.00) fL Neut % (Auto) 75.0 (48.0-80.0) % Lymph % (Auto) 5.6 L (16.0-40.0) % [place] % (Auto) 13.3 (0.0-15.0) % Eos % (Auto) 5.8 (0.0-7.0) % Baso % (Auto) 0.3 (0.0-1.5) % Neut # (Auto) 11.1 H (1.4-5.7) K/uL Lymph # (Auto) 0.8 (0.6-2.4) K/uL [place] # (Auto) 2.0 H (0.0-0.8) K/uL Eos # (Auto) 0.9 H (0.0-0.7) K/uL Baso # (Auto) 0.0 (0.0-0.1) K/uL Add Manual Diff Neutrophils % (Manual) (48.0-80.0) % Band Neutrophils % % Lymphocytes % (Manual) (16.0-40.0) % Monocytes % (Manual) (0.0-15.0) % Eosinophils % (Manual) (0.0-7.0) % Nucleated RBC % 0.0 /100WBC Absolute Seg Neuts (1.4-5.7) Band Neutrophils # Lymphocytes # (Manual) (0.6-2.4) Monocytes # (Manual) (0.0-0.8) Eosinophils # (Manual) (0.0-0.7) Nucleated RBCs # 0 K/uL Sodium 136 (136-148) mmol/L Potassium 3.8 (3.5-5.1) mmol/L Chloride 97 L (98-107) mmol/L Carbon Dioxide 29.7 (21.0-32.0) mmol/L BUN 13 (7.0-18.0) mg/dL Creatinine 1.3 (0.8-1.3) mg/dL Est Cr Clr Drug Dosing TNP Estimated GFR (MDRD) 55.9 ml/min Glucose 138 H (74-106) mg/dL Lactic Acid (0.4-2.0) mmol/L Calcium 8.7 (8.5-10.1) mg/dL Magnesium 1.9 (1.8-2.4) mg/dL Total Bilirubin 1.0 (0.2-1.0) mg/dL AST 23 (15-37) IU/L ALT 28 (14-63) IU/L Alkaline Phosphatase 96 (46-116) U/L Troponin I < 0.050 (0.000-0.056) ng/mL Total Protein 8.4 H (6.4-8.2) g/dL Albumin 3.2 L (3.4-5.0) g/dL Globulin 5.2 H (2.6-4.0) g/dL Albumin/Globulin Ratio 0.6 L (0.9-1.6) Urine Color Urine Appearance Urine pH (5.0-8.0) Ur Specific [place] (1.001-1.035) Urine Protein (NEGATIVE) mg/dL Urine Glucose (UA) (NEGATIVE) mg/dL Urine Ketones (NEGATIVE) mg/dL Urine Occult Blood (NEGATIVE) Urine Nitrite (NEGATIVE) Urine Bilirubin (NEGATIVE) Urine Urobilinogen (<2.0) EU/dL Ur Leukocyte Esterase (NEGATIVE) Urine RBC (0-2/HPF) Urine WBC (0-5/HPF) Ur Epithelial Cells (NONE-FEW) Urine Bacteria (NEGATIVE) SARS-CoV-2 RNA (ANTHONY) NEGATIVE (NEGATIVE) 06/06/21 06/06/21 06/07/21 Range/Units 18:10 20:15 05:18 WBC 13.50 H (4.0-11.0) K/uL RBC 4.45 L (4.50-5.90) M/uL Hgb 13.7 (13.0-17.0) g/dL Hct 40.9 (38.0-50.0) % MCV 91.9 (80.0-98.0) fL MCH 30.8 (27.0-32.0) pg MCHC 33.5 (31.0-37.0) g/dL RDW Std Deviation 44.5 (28.0-62.0) fl RDW Coeff of [place] 13 (11.0-15.0) % Plt Count 372 (150-400) K/uL MPV 10.20 (7.40-12.00) fL Neut % (Auto) (48.0-80.0) % Lymph % (Auto) (16.0-40.0) % [place] % (Auto) (0.0-15.0) % Eos % (Auto) (0.0-7.0) % Baso % (Auto) (0.0-1.5) % Neut # (Auto) (1.4-5.7) K/uL Lymph # (Auto) (0.6-2.4) K/uL [place] # (Auto) (0.0-0.8) K/uL Eos # (Auto) (0.0-0.7) K/uL Baso # (Auto) (0.0-0.1) K/uL Add Manual Diff YES Neutrophils % (Manual) 69 (48.0-80.0) % Band Neutrophils % 1 % Lymphocytes % (Manual) 9 L (16.0-40.0) % Monocytes % (Manual) 16 H (0.0-15.0) % Eosinophils % (Manual) 5 (0.0-7.0) % Nucleated RBC % 0.0 /100WBC Absolute Seg Neuts 9.3 H (1.4-5.7) Band Neutrophils # 0.1 Lymphocytes # (Manual) 1.2 (0.6-2.4) Monocytes # (Manual) 2.2 H (0.0-0.8) Eosinophils # (Manual) 0.7 (0.0-0.7) Nucleated RBCs # 0 K/uL Sodium (136-148) mmol/L Potassium (3.5-5.1) mmol/L Chloride (98-107) mmol/L Carbon Dioxide (21.0-32.0) mmol/L BUN (7.0-18.0) mg/dL Creatinine (0.8-1.3) mg/dL Est Cr Clr Drug Dosing Estimated GFR (MDRD) ml/min Glucose (74-106) mg/dL Lactic Acid 1.4 (0.4-2.0) mmol/L Calcium (8.5-10.1) mg/dL Magnesium (1.8-2.4) mg/dL Total Bilirubin (0.2-1.0) mg/dL AST (15-37) IU/L ALT (14-63) IU/L Alkaline Phosphatase (46-116) U/L Troponin I (0.000-0.056) ng/mL Total Protein (6.4-8.2) g/dL Albumin (3.4-5.0) g/dL Globulin (2.6-4.0) g/dL Albumin/Globulin Ratio (0.9-1.6) Urine Color YELLOW Urine Appearance CLEAR Urine pH 6.5 (5.0-8.0) Ur Specific [place] 1.010 (1.001-1.035) Urine Protein TRACE H (NEGATIVE) mg/dL Urine Glucose (UA) NEGATIVE (NEGATIVE) mg/dL Urine Ketones NEGATIVE (NEGATIVE) mg/dL Urine Occult Blood NEGATIVE (NEGATIVE) Urine Nitrite NEGATIVE (NEGATIVE) Urine Bilirubin NEGATIVE (NEGATIVE) Urine Urobilinogen 0.2 (<2.0) EU/dL Ur Leukocyte Esterase NEGATIVE (NEGATIVE) Urine RBC 0-1 (0-2/HPF) Urine WBC NONE SEEN (0-5/HPF) Ur Epithelial Cells RARE (NONE-FEW) Urine Bacteria RARE (NEGATIVE) SARS-CoV-2 RNA (ANTHONY) (NEGATIVE) 06/07/21 Range/Units 05:18 WBC (4.0-11.0) K/uL RBC (4.50-5.90) M/uL Hgb (13.0-17.0) g/dL Hct (38.0-50.0) % MCV (80.0-98.0) fL MCH (27.0-32.0) pg MCHC (31.0-37.0) g/dL RDW Std Deviation (28.0-62.0) fl RDW Coeff of [place] (11.0-15.0) % Plt Count (150-400) K/uL MPV (7.40-12.00) fL Neut % (Auto) (48.0-80.0) % Lymph % (Auto) (16.0-40.0) % [place] % (Auto) (0.0-15.0) % Eos % (Auto) (0.0-7.0) % Baso % (Auto) (0.0-1.5) % Neut # (Auto) (1.4-5.7) K/uL Lymph # (Auto) (0.6-2.4) K/uL [place] # (Auto) (0.0-0.8) K/uL Eos # (Auto) (0.0-0.7) K/uL Baso # (Auto) (0.0-0.1) K/uL Add Manual Diff Neutrophils % (Manual) (48.0-80.0) % Band Neutrophils % % Lymphocytes % (Manual) (16.0-40.0) % Monocytes % (Manual) (0.0-15.0) % Eosinophils % (Manual) (0.0-7.0) % Nucleated RBC % /100WBC Absolute Seg Neuts (1.4-5.7) Band Neutrophils # Lymphocytes # (Manual) (0.6-2.4) Monocytes # (Manual) (0.0-0.8) Eosinophils # (Manual) (0.0-0.7) Nucleated RBCs # K/uL Sodium 139 (136-148) mmol/L Potassium 4.5 (3.5-5.1) mmol/L Chloride 101 (98-107) mmol/L Carbon Dioxide 27.9 (21.0-32.0) mmol/L BUN 10 (7.0-18.0) mg/dL Creatinine 1.2 (0.8-1.3) mg/dL Est Cr Clr Drug Dosing 63.83 Estimated GFR (MDRD) > 60.0 ml/min Glucose 98 (74-106) mg/dL Lactic Acid (0.4-2.0) mmol/L Calcium 8.6 (8.5-10.1) mg/dL Magnesium (1.8-2.4) mg/dL Total Bilirubin (0.2-1.0) mg/dL AST (15-37) IU/L ALT (14-63) IU/L Alkaline Phosphatase (46-116) U/L Troponin I (0.000-0.056) ng/mL Total Protein (6.4-8.2) g/dL Albumin (3.4-5.0) g/dL Globulin (2.6-4.0) g/dL Albumin/Globulin Ratio (0.9-1.6) Urine Color Urine Appearance Urine pH (5.0-8.0) Ur Specific [place] (1.001-1.035) Urine Protein (NEGATIVE) mg/dL Urine Glucose (UA) (NEGATIVE) mg/dL Urine Ketones (NEGATIVE) mg/dL Urine Occult Blood (NEGATIVE) Urine Nitrite (NEGATIVE) Urine Bilirubin (NEGATIVE) Urine Urobilinogen (<2.0) EU/dL Ur Leukocyte Esterase (NEGATIVE) Urine RBC (0-2/HPF) Urine WBC (0-5/HPF) Ur Epithelial Cells (NONE-FEW) Urine Bacteria (NEGATIVE) SARS-CoV-2 RNA (ANTHONY) (NEGATIVE) Result Diagrams: 06/08/21 06:39 06/08/21 06:39 Sepsis Event Note - Evaluation Sepsis Screening Result: Sepsis Risk - Focused Exam Vital Signs: Vital Signs Temp Temp Pulse Pulse Resp BP BP 06/07/21 09:24 114 H 111/66 06/07/21 09:20 36.7 C 114 H 20 111/66 06/07/21 08:00 36.7 C 114 H 20 111/66 06/07/21 04:00 37.0 C 105 H 18 105/57 L 06/07/21 00:08 36.6 C 110 H 19 130/70 Pulse Ox 06/07/21 09:24 06/07/21 09:20 95 06/07/21 08:00 95 06/07/21 04:00 93 L 06/07/21 00:08 95 - Problem List (1) History of malignant mesothelioma SNOMED Code(s): 602254447 ICD Code: Z85.89 - PERSONAL HISTORY OF MALIGNANT NEOPLASM OF ORGANS AND SYSTEMS Status: Acute Current Visit: Yes (2) Community acquired pneumonia SNOMED Code(s): 241930038 ICD Code: J18.9 - PNEUMONIA, UNSPECIFIED ORGANISM Status: Acute Current Visit: No Qualifiers: Laterality: right Lung location: unspecified part of lung Qualified Code(s): J18.9 - Pneumonia, unspecified organism (3) Hypoxemia SNOMED Code(s): 358853160 ICD Code: R09.02 - HYPOXEMIA Status: Acute Current Visit: No Problem List Initiated/Reviewed/Updated: Yes Orders Last 24hrs: Active Orders 24 hr Category Date Time Status Patient Status [ADT] Stat ADT 06/06/21 21:07 Active Antiembolic Devices [RC] PER UNIT ROUTINE Care 06/07/21 10:32 Ordered Oxygen Therapy [RC] PRN Care 06/07/21 10:31 Ordered Up ad Danielle [RC] ASDIRECTED Care 06/07/21 10:31 Ordered VTE/DVT Education [RC] PER UNIT ROUTINE Care 06/07/21 10:31 Ordered Vital Signs [RC] Q4H Care 06/07/21 10:31 Ordered Regular Diet [DIET] Diet 06/07/21 Breakfast Active BASIC METABOLIC PANEL,BMP [CHEM] AM Lab 06/08/21 05:11 Ordered CBC WITH AUTO DIFF [HEME] AM Lab 06/08/21 05:11 Ordered CULTURE BLOOD [BC] Stat Lab 06/06/21 18:10 Received CULTURE BLOOD [BC] Stat Lab 06/06/21 18:43 Received Acetaminophen [TylenoL] Med 06/07/21 10:32 Ordered 650 mg PO Q6H PRN Acetaminophen [Tylenol Extra Strength] Med 06/07/21 01:22 Active 500 mg PO Q6H PRN Aspirin Med 06/07/21 09:00 Active 81 mg PO DAILY Azithromycin [Zithromax] 500 mg Med 06/07/21 21:00 Active Sodium Chloride 0.9% [Normal Saline AdvBag] 250 ml IV Q24H Clopidogrel [Plavix] Med 06/07/21 09:00 Active 75 mg PO DAILY Enoxaparin [Lovenox] Med 06/07/21 10:45 Ordered 40 mg SUBCUT Q24H Ibuprofen [Motrin] Med 06/07/21 07:38 Active 200 mg PO Q6H PRN Metoprolol Succinate [Toprol XL] Med 06/07/21 09:00 Active 50 mg PO DAILY Omeprazole Med 06/07/21 09:00 Active 20 mg PO DAILY Sennosides [Senna] Med 06/07/21 01:22 Active 8.6 mg PO BID PRN amLODIPine [Norvasc] Med 06/07/21 09:00 Active 5 mg PO DAILY atorvaSTATin [Lipitor] Med 06/07/21 09:00 Active 40 mg PO DAILY cefTRIAXone [Rocephin in Dextrose,Iso-Osm 1 GM/50 ML] 1 Med 06/07/21 20:00 Active gm Premix Bag 1 bag IV Q24H oxyCODONE Med 06/07/21 10:31 Ordered 5 mg PO Q4H PRN Blood Culture x2 Reflex Set [OM.PC] Stat Ot 06/06/21 20:08 Ordered Sequential Compression Device [OM.PC] Per Unit Routine Oth 06/07/21 10:31 Ordered Resuscitation Status Routine Resus Stat 06/07/21 10:31 Ordered Medication Orders Acetaminophen (Acetaminophen 500 Mg Tab) 500 mg PO Q6H PRN PRN Reason: Pain/Fever Last Admin: 06/07/21 02:15 Dose: 500 mg Documented by: LACEY Acetaminophen (Acetaminophen 325 Mg Tab) 650 mg PO Q6H PRN PRN Reason: Pain Amlodipine Besylate (Amlodipine 5 Mg Tab) 5 mg PO DAILY [facility] Last Admin: 06/07/21 09:24 Dose: 5 mg Documented by: TOMÁS Aspirin (Aspirin 81 Mg Tab.Chew) 81 mg PO DAILY [facility] Last Admin: 06/07/21 09:23 Dose: 81 mg Documented by: TOMÁS Atorvastatin Calcium (Atorvastatin 40 Mg Tab) 40 mg PO DAILY [facility] Last Admin: 06/07/21 09:24 Dose: 40 mg Documented by: TOMÁS Clopidogrel Bisulfate (Clopidogrel 75 Mg Tab) 75 mg PO DAILY [facility] Last Admin: 06/07/21 09:24 Dose: 75 mg Documented by: TOMÁS Enoxaparin Sodium (Enoxaparin 40 Mg/0.4 Ml Syringe) 40 mg SUBCUT Q24H [facility] Ceftriaxone Sodium/Dextrose 1 (gm/ Premix) 50 mls @ 100 mls/hr IV Q24H [facility] Azithromycin 500 mg/ Sodium (Chloride) 250 mls @ 250 mls/hr IV Q24H [facility] Ibuprofen (Ibuprofen 200 Mg Tab) 200 mg PO Q6H PRN PRN Reason: Pain Last Admin: 06/07/21 07:49 Dose: 200 mg Documented by: TOMÁS Metoprolol Succinate (Metoprolol Succinate 50 Mg Tab.Er) 50 mg PO DAILY [facility] Last Admin: 06/07/21 09:24 Dose: 50 mg Documented by: TOMÁS Omeprazole (Omeprazole 20 Mg Cap.Cr) 20 mg PO DAILY [facility] Last Admin: 06/07/21 09:24 Dose: 20 mg Documented by: TOMÁS Oxycodone HCl (Oxycodone 5 Mg Tab) 5 mg PO Q4H PRN PRN Reason: Pain (moderate 4-6) Senna (Sennosides 8.6 Mg Tab) 8.6 mg PO BID PRN PRN Reason: Constipation Assessment/Plan Comment:: 60 yo male with pmh of mesothelioma admitted for pneumonia. We will continue treatment with rocephin and azithromycin.
[2021-06-07] MEDS: Enoxaparin 40 MG/0.4 ML Syringe SUBCUT SCH (11:54)
[2021-06-07] MEDS: oxyCODONE 5 MG Tab PO PRN ×2 (15:06→21:04)
[2021-06-07] MEDS ORDERED: Albuterol/Ipratropium 3.0-0.5 MG/3 ML Neb Soln NEB PRN (15:28)
[2021-06-07] MEDS ORDERED: Dexamethasone 4 MG Tab PO SCH (15:30)
[2021-06-07] MEDS: cefTRIAXone 1 GM in Premix Bag 1 BAG IV SCH (19:48)
[2021-06-07] MEDS: Dexamethasone 4 MG Tab PO SCH (21:02)
[2021-06-07] MEDS: Azithromycin 500 MG in Sodium Chloride 0.9% 250 ML IV SCH (21:03)
[2021-06-08] MEDS: oxyCODONE 5 MG Tab PO PRN ×2 (02:40→21:59)
[2021-06-08 07:58] LABS: BLOOD UREA NITROGEN,BUN 13 mg/dL (7.0-18.0); CARBON DIOXIDE,CO2 27.7 mmol/L (21.0-32.0); CHLORIDE,CL 101 mmol/L (98-107); GLUCOSE RANDOM 147 mg/dL (74-106); POTASSIUM,K 4.9 mmol/L (3.5-5.1); SODIUM,NA 137 mmol/L (136-148)
[2021-06-08] MEDS: Aspirin 81 MG Tab.Chew PO SCH (08:58)
[2021-06-08] MEDS: Dexamethasone 4 MG Tab PO SCH ×2 (08:58→20:45)
[2021-06-08] MEDS: Metoprolol Succinate 50 MG Tab.ER PO SCH (08:59)
[2021-06-08] MEDS: atorvaSTATin 40 MG Tab PO SCH (08:59)
[2021-06-08] MEDS: amLODIPine 5 MG Tab PO SCH (08:59)
[2021-06-08] MEDS: Omeprazole 20 MG Cap.CR PO SCH (08:59)
[2021-06-08] MEDS: Clopidogrel 75 MG Tab PO SCH (08:59)
--- NOTE | 2021-06-08 10:20 | PCM.PN ---
- General Info Date of Service: 06/08/21 - Review of Systems Systems Review Comment:: feeling better, right sided back pain improving, shortness of breath getting better - Patient Data Vitals - Most Recent: Last Vital Signs Temp 36.4 C 06/08/21 08:00 Pulse 97 06/08/21 08:59 Resp 16 06/08/21 08:00 BP 106/62 06/08/21 08:59 Pulse Ox 93 L 06/08/21 08:00 Weight - Most Recent: 95.436 kg I&O - Last 24 Hours: Intake & Output 06/07/21 06/08/21 06/08/21 22:59 06:59 14:59 Intake Total 1200 950 Output Total 900 1100 Balance 300 -150 Lab Results Last 24 Hours: Laboratory Results - last 24 hr 06/08/21 06/08/21 Range/Units 06:39 06:39 WBC 11.47 H (4.0-11.0) K/uL RBC 4.31 L (4.50-5.90) M/uL Hgb 13.2 (13.0-17.0) g/dL Hct 39.2 (38.0-50.0) % MCV 91.0 (80.0-98.0) fL MCH 30.6 (27.0-32.0) pg MCHC 33.7 (31.0-37.0) g/dL RDW Std Deviation 43.7 (28.0-62.0) fl RDW Coeff of [place] 13 (11.0-15.0) % Plt Count 414 H (150-400) K/uL MPV 10.40 (7.40-12.00) fL Neut % (Auto) 86.7 H (48.0-80.0) % Lymph % (Auto) 6.5 L (16.0-40.0) % Jerome % (Auto) 6.5 (0.0-15.0) % Eos % (Auto) 0.1 (0.0-7.0) % Baso % (Auto) 0.2 (0.0-1.5) % Neut # (Auto) 10.0 H (1.4-5.7) K/uL Lymph # (Auto) 0.8 (0.6-2.4) K/uL Jerome # (Auto) 0.7 (0.0-0.8) K/uL Eos # (Auto) 0.0 (0.0-0.7) K/uL Baso # (Auto) 0.0 (0.0-0.1) K/uL Nucleated RBC % 0.0 /100WBC Nucleated RBCs # 0 K/uL Sodium 137 (136-148) mmol/L Potassium 4.9 (3.5-5.1) mmol/L Chloride 101 (98-107) mmol/L Carbon Dioxide 27.7 (21.0-32.0) mmol/L BUN 13 (7.0-18.0) mg/dL Creatinine 1.0 (0.8-1.3) mg/dL Est Cr Clr Drug Dosing 76.59 mL/min Estimated GFR (MDRD) > 60.0 ml/min Glucose 147 H (74-106) mg/dL Calcium 8.7 (8.5-10.1) mg/dL Donte Results Last 24 Hours: Microbiology 06/06/21 18:43 Aerobic Blood Culture - Preliminary Blood - Venous - Lab Draw NO GROWTH AFTER 1 DAY Anaerobic Blood Culture - Preliminary NO GROWTH AFTER 1 DAY 06/06/21 18:10 Aerobic Blood Culture - Preliminary Blood - Venous NO GROWTH AFTER 1 DAY Anaerobic Blood Culture - Preliminary NO GROWTH AFTER 1 DAY Med Orders - Current: Current Medications Acetaminophen (Acetaminophen 500 Mg Tab) 500 mg PO Q6H PRN PRN Reason: Pain/Fever Last Admin: 06/07/21 02:15 Dose: 500 mg Documented by: Acetaminophen (Acetaminophen 325 Mg Tab) 650 mg PO Q6H PRN PRN Reason: Pain Albuterol/Ipratropium (Albuterol/Ipratropium 3.0-0.5 Mg/3 Ml Neb Soln) 3 ml NEB Q6HRRT PRN PRN Reason: Wheezing Last Admin: 06/07/21 16:10 Dose: 3 ml Documented by: Amlodipine Besylate (Amlodipine 5 Mg Tab) 5 mg PO DAILY [facility] Last Admin: 06/08/21 08:59 Dose: 5 mg Documented by: Aspirin (Aspirin 81 Mg Tab.Chew) 81 mg PO DAILY [facility] Last Admin: 06/08/21 08:58 Dose: 81 mg Documented by: Atorvastatin Calcium (Atorvastatin 40 Mg Tab) 40 mg PO DAILY [facility] Last Admin: 06/08/21 08:59 Dose: 40 mg Documented by: Clopidogrel Bisulfate (Clopidogrel 75 Mg Tab) 75 mg PO DAILY [facility] Last Admin: 06/08/21 08:59 Dose: 75 mg Documented by: Dexamethasone (Dexamethasone 4 Mg Tab) 4 mg PO BID [facility] Last Admin: 06/08/21 08:58 Dose: 4 mg Documented by: Enoxaparin Sodium (Enoxaparin 40 Mg/0.4 Ml Syringe) 40 mg SUBCUT Q24H [facility] Last Admin: 06/07/21 11:54 Dose: 40 mg Documented by: Ceftriaxone Sodium/Dextrose 1 (gm/ Premix) 50 mls @ 100 mls/hr IV Q24H [facility] Last Admin: 06/07/21 19:48 Dose: 100 mls/hr Documented by: Azithromycin 500 mg/ Sodium (Chloride) 250 mls @ 250 mls/hr IV Q24H [facility] Last Admin: 06/07/21 21:03 Dose: 250 mls/hr Documented by: Ibuprofen (Ibuprofen 200 Mg Tab) 200 mg PO Q6H PRN PRN Reason: Pain Last Admin: 06/07/21 07:49 Dose: 200 mg Documented by: Metoprolol Succinate (Metoprolol Succinate 50 Mg Tab.Er) 50 mg PO DAILY [facility] Last Admin: 06/08/21 08:59 Dose: 50 mg Documented by: Omeprazole (Omeprazole 20 Mg Cap.Cr) 20 mg PO DAILY [facility] Last Admin: 06/08/21 08:59 Dose: 20 mg Documented by: Oxycodone HCl (Oxycodone 5 Mg Tab) 5 mg PO Q4H PRN PRN Reason: Pain (moderate 4-6) Last Admin: 06/08/21 02:40 Dose: 5 mg Documented by: Senna (Sennosides 8.6 Mg Tab) 8.6 mg PO BID PRN PRN Reason: Constipation Discontinued Medications Dexamethasone (Dexamethasone 4 Mg Tab) 4 mg PO DAILY [facility] Last Admin: 06/07/21 16:10 Dose: 4 mg Documented by: Sodium Chloride (Normal Saline) 1,000 mls @ 999 mls/hr IV STAT ONE Stop: 06/06/21 19:21 Last Admin: 06/06/21 18:41 Dose: 999 mls/hr Documented by: Ceftriaxone Sodium/Dextrose 1 (gm/ Premix) 50 mls @ 100 mls/hr IV ONETIME ONE Stop: 06/06/21 21:36 Last Admin: 06/06/21 21:20 Dose: 100 mls/hr Documented by: Azithromycin 500 mg/ Sodium (Chloride) 250 mls @ 250 mls/hr IV ONETIME [facility] Last Admin: 06/06/21 22:29 Dose: 250 mls/hr Documented by: Iopamidol (Iopamidol 755 Mg/Ml 500 Ml Multipack Bottle) 75 ml IVPUSH ONETIME STA Stop: 06/06/21 19:58 Last Admin: 06/06/21 19:57 Dose: 75 ml Documented by: - Exam General: Alert, Oriented Neck: Supple Lungs: Clear to Auscultation, Normal Respiratory Effort Cardiovascular: Regular Rate, Regular Rhythm GI/Abdominal Exam: Soft, Non-Tender, No Distention Extremities: Non-Tender, No Pedal Edema Skin: Warm, Dry, Intact Neurological: No New Focal Deficit - Patient Data Lab Results Last 24 hrs: Laboratory Results - last 24 hr 06/08/21 06/08/21 Range/Units 06:39 06:39 WBC 11.47 H (4.0-11.0) K/uL RBC 4.31 L (4.50-5.90) M/uL Hgb 13.2 (13.0-17.0) g/dL Hct 39.2 (38.0-50.0) % MCV 91.0 (80.0-98.0) fL MCH 30.6 (27.0-32.0) pg MCHC 33.7 (31.0-37.0) g/dL RDW Std Deviation 43.7 (28.0-62.0) fl RDW Coeff of [place] 13 (11.0-15.0) % Plt Count 414 H (150-400) K/uL MPV 10.40 (7.40-12.00) fL Neut % (Auto) 86.7 H (48.0-80.0) % Lymph % (Auto) 6.5 L (16.0-40.0) % Jerome % (Auto) 6.5 (0.0-15.0) % Eos % (Auto) 0.1 (0.0-7.0) % Baso % (Auto) 0.2 (0.0-1.5) % Neut # (Auto) 10.0 H (1.4-5.7) K/uL Lymph # (Auto) 0.8 (0.6-2.4) K/uL Jerome # (Auto) 0.7 (0.0-0.8) K/uL Eos # (Auto) 0.0 (0.0-0.7) K/uL Baso # (Auto) 0.0 (0.0-0.1) K/uL Nucleated RBC % 0.0 /100WBC Nucleated RBCs # 0 K/uL Sodium 137 (136-148) mmol/L Potassium 4.9 (3.5-5.1) mmol/L Chloride 101 (98-107) mmol/L Carbon Dioxide 27.7 (21.0-32.0) mmol/L BUN 13 (7.0-18.0) mg/dL Creatinine 1.0 (0.8-1.3) mg/dL Est Cr Clr Drug Dosing 76.59 mL/min Estimated GFR (MDRD) > 60.0 ml/min Glucose 147 H (74-106) mg/dL Calcium 8.7 (8.5-10.1) mg/dL Result Diagrams: 06/08/21 06:39 06/08/21 06:39 Donte Results Last 24 hrs: Microbiology 06/06/21 18:43 Aerobic Blood Culture - Preliminary Blood - Venous - Lab Draw NO GROWTH AFTER 1 DAY Anaerobic Blood Culture - Preliminary NO GROWTH AFTER 1 DAY 06/06/21 18:10 Aerobic Blood Culture - Preliminary Blood - Venous NO GROWTH AFTER 1 DAY Anaerobic Blood Culture - Preliminary NO GROWTH AFTER 1 DAY Sepsis Event Note - Evaluation Sepsis Screening Result: Sepsis Risk - Focused Exam Vital Signs: Vital Signs Temp Pulse Pulse Resp BP BP Pulse Ox 06/08/21 08:59 97 106/62 06/08/21 08:00 36.4 C 97 16 106/62 93 L 06/08/21 04:00 36.4 C 101 H 17 133/61 91 L 06/07/21 23:11 36.4 C 100 18 116/55 L 92 L - Problem List & Annotations (1) History of malignant mesothelioma SNOMED Code(s): 993024223 Code(s): Z85.89 - PERSONAL HISTORY OF MALIGNANT NEOPLASM OF ORGANS AND SYSTEMS Status: Acute Current Visit: Yes (2) Community acquired pneumonia SNOMED Code(s): 919974232 Code(s): J18.9 - PNEUMONIA, UNSPECIFIED ORGANISM Status: Acute Current Visit: No Qualifiers: Laterality: right Lung location: unspecified part of lung Qualified Code(s): J18.9 - Pneumonia, unspecified organism (3) Hypoxemia SNOMED Code(s): 477360171 Code(s): R09.02 - HYPOXEMIA Status: Acute Current Visit: No - Problem List Review Problem List Initiated/Reviewed/Updated: Yes - My Orders Last 24 Hours: My Active Orders 06/07/21 10:31 Oxygen Therapy [RC] PRN Up ad Danielle [RC] ASDIRECTED VTE/DVT Education [RC] PER UNIT ROUTINE Vital Signs [RC] Q4H oxyCODONE 5 mg PO Q4H PRN Sequential Compression Device [OM.PC] Per Unit Routine Resuscitation Status Routine 06/07/21 10:32 Antiembolic Devices [RC] PER UNIT ROUTINE Acetaminophen [TylenoL] 650 mg PO Q6H PRN 06/07/21 10:45 Enoxaparin [Lovenox] 40 mg SUBCUT Q24H 06/07/21 15:28 RT Aerosol Therapy [RC] ASDIRECTED Albuterol/Ipratropium [DuoNeb 3.0-0.5 MG/3 ML] 3 ml NEB Q6HRRT PRN 06/07/21 20:00 cefTRIAXone [Rocephin in Dextrose,Iso-Osm 1 GM/50 ML] 1 gm Premix Bag 1 bag IV Q24H 06/07/21 21:00 Azithromycin [Zithromax] 500 mg Sodium Chloride 0.9% [Normal Saline AdvBag] 25 0 ml IV Q24H dexAMETHasone 4 mg PO BID - Plan Plan:: 60 yo male with pmh of mesothelioma admitted for pneumonia. Pneumonia We will continue treatment with Rocephin and azithromycin. Lung cancer: on dexamethasone due to recent immunotherapy
[2021-06-08] MEDS: Enoxaparin 40 MG/0.4 ML Syringe SUBCUT SCH (11:38)
[2021-06-08] MEDS: Sennosides 8.6 MG Tab PO PRN (14:32)
[2021-06-08] MEDS: cefTRIAXone 1 GM in Premix Bag 1 BAG IV SCH (20:00)
[2021-06-08] MEDS: Azithromycin 500 MG in Sodium Chloride 0.9% 250 ML IV SCH (20:42)
[2021-06-09] MEDS: amLODIPine 5 MG Tab PO SCH (09:30)
[2021-06-09] MEDS: Dexamethasone 4 MG Tab PO SCH (09:30)
[2021-06-09] MEDS: Metoprolol Succinate 50 MG Tab.ER PO SCH (09:30)
[2021-06-09] MEDS: Aspirin 81 MG Tab.Chew PO SCH (09:30)
[2021-06-09] MEDS: Clopidogrel 75 MG Tab PO SCH (09:30)
[2021-06-09] MEDS: atorvaSTATin 40 MG Tab PO SCH (09:31)
[2021-06-09] MEDS: Omeprazole 20 MG Cap.CR PO SCH (09:31)
[2021-06-09] MEDS: Sennosides 8.6 MG Tab PO PRN (09:39)
[2021-06-09] MEDS: Enoxaparin 40 MG/0.4 ML Syringe SUBCUT SCH (11:35)
[2021-06-09 11:40] VITALS: BP 122/53; PULSE 79
--- NOTE | 2021-06-09 13:08 | PCM.DCSUM1 ---
Discharge Summary - Discharge Data Discharge Date: 06/09/21 Discharge Disposition: Home, Self-Care 01 Condition: Stable - Referral to Home Health Primary Care Physician: Preston Carney MD - Discharge Diagnosis/Problem(s) (1) History of malignant mesothelioma SNOMED Code(s): 331382419 ICD Code: Z85.89 - PERSONAL HISTORY OF MALIGNANT NEOPLASM OF ORGANS AND SYSTEMS Status: Acute Current Visit: Yes (2) Community acquired pneumonia SNOMED Code(s): 792794308 ICD Code: J18.9 - PNEUMONIA, UNSPECIFIED ORGANISM Status: Acute Current Visit: No Qualifiers: Laterality: right Lung location: unspecified part of lung Qualified Code(s): J18.9 - Pneumonia, unspecified organism (3) Hypoxemia SNOMED Code(s): 434884995 ICD Code: R09.02 - HYPOXEMIA Status: Acute Current Visit: No - Patient Summary/Data Hospital Course: 60 yo male who was diagnosed with mesothelioma in 2019, s/p resection and chemotherapy. In January had reoccurrence and has been on immunotherapy and xrt. For past three weeks has had having lower right thoracic back pain. It is not pleuritic in nature. He denies any fevers, chills, or shortness of breath but has noted decreasing oxygen sats to lower 90s at home. In the ED he was found to be satting 88%. CT angio reported no PE but new bilateral nodularities concerning for infection. He has been vaccinated for COVID and is COVID negative. He was admitted for community acquired pneumonia. He was treated with IV Rocephin, Azithromycin and dexamethasone. He did have improvement in his back pain and cough resolved. His oxygen sats improved and today he is requesting discharge. He was discharged home to have follow up with oncology clinic and his primary care doctor. - Patient Instructions Diet: Usual Diet as Tolerated Activity: As Tolerated Notify Provider of: Fever, Increased Pain, Nausea and/or Vomiting - Discharge Plan Prescriptions/Med Rec: dexAMETHasone [Dexamethasone] 4 mg PO DAILY #2 tablet levoFLOXacin [Levaquin] 750 mg PO DAILY #4 tab Home Medications: Home Meds Clopidogrel [Plavix] 75 mg PO DAILY 06/19/19 [History] Metoprolol Succinate 50 mg PO DAILY 06/19/19 [History] amLODIPine [Norvasc] 5 mg PO DAILY 06/19/19 [History] atorvaSTATin Calcium [Lipitor] 40 mg PO DAILY 06/19/19 [History] Aspirin 81 mg PO DAILY 06/06/21 [History] Esomeprazole [NexIUM] 40 mg PO DAILY 06/06/21 [History] Sennosides [Senokot] 8.6 mg PO BID PRN 06/06/21 [History] Acetaminophen 500 mg PO Q6H PRN 06/07/21 [History] dexAMETHasone [Dexamethasone] 4 mg PO DAILY #2 tablet 06/09/21 [Rx] levoFLOXacin [Levaquin] 750 mg PO DAILY #4 tab 06/09/21 [Rx] Referrals: Preston Carney MD [Primary Care Provider] - - Discharge Summary/Plan Comment DC Time >30 min.: No Total # of Minutes for Discharge Time: 15 - Patient Data Vitals - Most Recent: Last Vital Signs Temp 36.3 C 06/09/21 11:37 Pulse 79 06/09/21 11:37 Resp 18 06/09/21 11:37 BP 122/53 L 06/09/21 11:37 Pulse Ox 97 06/09/21 11:37 Weight - Most Recent: 95.436 kg I&O - Last 24 hours: Intake & Output 06/08/21 06/09/21 06/09/21 22:59 06:59 14:59 Intake Total 1400 1450 Output Total 1300 1750 Balance 100 -300 JUDIE Results - Last 24 hrs: Microbiology 06/06/21 18:43 Aerobic Blood Culture - Preliminary Blood - Venous - Lab Draw NO GROWTH AFTER 2 DAYS Anaerobic Blood Culture - Preliminary NO GROWTH AFTER 2 DAYS 06/06/21 18:10 Aerobic Blood Culture - Preliminary Blood - Venous NO GROWTH AFTER 2 DAYS Anaerobic Blood Culture - Preliminary NO GROWTH AFTER 2 DAYS Med Orders - Current: Current Medications Acetaminophen (Acetaminophen 500 Mg Tab) 500 mg PO Q6H PRN PRN Reason: Pain/Fever Last Admin: 06/07/21 02:15 Dose: 500 mg Documented by: Acetaminophen (Acetaminophen 325 Mg Tab) 650 mg PO Q6H PRN PRN Reason: Pain Albuterol/Ipratropium (Albuterol/Ipratropium 3.0-0.5 Mg/3 Ml Neb Soln) 3 ml NEB Q6HRRT PRN PRN Reason: Wheezing Last Admin: 06/07/21 16:10 Dose: 3 ml Documented by: Amlodipine Besylate (Amlodipine 5 Mg Tab) 5 mg PO DAILY [facility] Last Admin: 06/09/21 09:30 Dose: 5 mg Documented by: Aspirin (Aspirin 81 Mg Tab.Chew) 81 mg PO DAILY [facility] Last Admin: 06/09/21 09:30 Dose: 81 mg Documented by: Atorvastatin Calcium (Atorvastatin 40 Mg Tab) 40 mg PO DAILY [facility] Last Admin: 06/09/21 09:31 Dose: 40 mg Documented by: Clopidogrel Bisulfate (Clopidogrel 75 Mg Tab) 75 mg PO DAILY [facility] Last Admin: 06/09/21 09:30 Dose: 75 mg Documented by: Dexamethasone (Dexamethasone 4 Mg Tab) 4 mg PO BID [facility] Last Admin: 06/09/21 09:30 Dose: 4 mg Documented by: Enoxaparin Sodium (Enoxaparin 40 Mg/0.4 Ml Syringe) 40 mg SUBCUT Q24H [facility] Last Admin: 06/09/21 11:35 Dose: 40 mg Documented by: Ceftriaxone Sodium/Dextrose 1 (gm/ Premix) 50 mls @ 100 mls/hr IV Q24H [facility] Last Admin: 06/08/21 20:00 Dose: 100 mls/hr Documented by: Azithromycin 500 mg/ Sodium (Chloride) 250 mls @ 250 mls/hr IV Q24H [facility] Last Admin: 06/08/21 20:42 Dose: 250 mls/hr Documented by: Ibuprofen (Ibuprofen 200 Mg Tab) 200 mg PO Q6H PRN PRN Reason: Pain Last Admin: 06/07/21 07:49 Dose: 200 mg Documented by: Metoprolol Succinate (Metoprolol Succinate 50 Mg Tab.Er) 50 mg PO DAILY [facility] Last Admin: 06/09/21 09:30 Dose: 50 mg Documented by: Omeprazole (Omeprazole 20 Mg Cap.Cr) 20 mg PO DAILY [facility] Last Admin: 06/09/21 09:31 Dose: 20 mg Documented by: Oxycodone HCl (Oxycodone 5 Mg Tab) 5 mg PO Q4H PRN PRN Reason: Pain (moderate 4-6) Last Admin: 06/08/21 21:59 Dose: 5 mg Documented by: Senna (Sennosides 8.6 Mg Tab) 8.6 mg PO BID PRN PRN Reason: Constipation Last Admin: 06/09/21 09:39 Dose: 8.6 mg Documented by: Discontinued Medications Dexamethasone (Dexamethasone 4 Mg Tab) 4 mg PO DAILY [facility] Last Admin: 06/07/21 16:10 Dose: 4 mg Documented by: Sodium Chloride (Normal Saline) 1,000 mls @ 999 mls/hr IV STAT ONE Stop: 06/06/21 19:21 Last Admin: 06/06/21 18:41 Dose: 999 mls/hr Documented by: Ceftriaxone Sodium/Dextrose 1 (gm/ Premix) 50 mls @ 100 mls/hr IV ONETIME ONE Stop: 06/06/21 21:36 Last Admin: 06/06/21 21:20 Dose: 100 mls/hr Documented by: Azithromycin 500 mg/ Sodium (Chloride) 250 mls @ 250 mls/hr IV ONETIME [facility] Last Admin: 06/06/21 22:29 Dose: 250 mls/hr Documented by: Iopamidol (Iopamidol 755 Mg/Ml 500 Ml Multipack Bottle) 75 ml IVPUSH ONETIME STA Stop: 06/06/21 19:58 Last Admin: 06/06/21 19:57 Dose: 75 ml Documented by:
== END 2021-06-09 13:50 | disposition home or self-care (01) | DRG 139 ==
LOC: MW.ED 16:14 → MW.MS 21:07
PROVIDERS: ADMIT Internal Medicine; ATTEND Internal Medicine
DX: J18.9 Pneumonia, unspecified organism (principal); C34.90 Malignant neoplasm of unspecified part of unspecified bronchus or lung; Z20.822 Contact with and (suspected) exposure to COVID-19; H54.7 Unspecified visual loss; K21.9 Gastro-esophageal reflux disease without esophagitis; I10 Essential (primary) hypertension; E66.9 Obesity, unspecified; Z98.890 Other specified postprocedural states; Z92.21 Personal history of antineoplastic chemotherapy; Z79.82 Long term (current) use of aspirin; Z79.899 Other long term (current) drug therapy; Z95.5 Presence of coronary angioplasty implant and graft; Z87.891 Personal history of nicotine dependence; Z68.31 Body mass index [BMI] 31.0-31.9, adult
CPT/HCPCS: 36415; 71275; 71275-26; 80048; 80053; 81001; 83605; 83735; 84484; 85025; 87040; 93005; 99285-25; A9270-GY; J0456; J0696; J1650; J7030; J7050; J7620-GY; J8540; Q9967; U0002

== ENCOUNTER 2022-10-30 06:31 | Day surgery (SDC) | payer MEDICARE ==
[~2022-10-30 06:31] MED LIST changes: +Sodium Chloride 0.9% 10 ML Syringe FLUSH PRN; +Sodium Chloride 0.9% 2.5 ML Syringe FLUSH PRN; +Sodium Chloride 0.9% 20 ML SDV IV PRN
[2022-10-30] MEDS ORDERED: Metoclopramide 10 MG/2 ML SDV IVPUSH PRN (07:04)
[2022-10-30] MEDS ORDERED: Morphine 2 MG/ML SYRINGE IVPUSH PRN (07:04)
[2022-10-30] MEDS ORDERED: Ondansetron 4 MG/2 ML SDV IVPUSH PRN (07:04)
[2022-10-30] MEDS ORDERED: HYDROmorphone 1 MG/ML Syringe IVPUSH PRN (07:04)
[2022-10-30] MEDS ORDERED: Albuterol 0.083% 2.5 MG/3 ML Neb Soln NEB PRN (07:04)
[2022-10-30] MEDS ORDERED: fentaNYL 50 MCG/ML SDV IVPUSH PRN (07:04)
[2022-10-30] MEDS ORDERED: Naloxone 0.4 MG/ML SDV IVPUSH PRN (07:04)
[2022-10-30] MEDS ORDERED: Bupivacaine 0.5% 30 ML SDV ONE (07:27)
[2022-10-30] MEDS ORDERED: Heparin Sodium 100 Units/ML 3 ML Syringe ONE (07:28)
[2022-10-30] MEDS ORDERED: Lidocaine 1% 20 ML MDV ONE (07:28)
[2022-10-30] MEDS ORDERED: fentaNYL 100 MCG/2 ML SDV ONE (07:43)
[2022-10-30] MEDS ORDERED: Ketorolac 30 MG/ML SDV ONE (07:43)
[2022-10-30] MEDS ORDERED: Lidocaine 2% 11 ML Jelly Filled Syringe ONE (07:43)
[2022-10-30] MEDS ORDERED: Propofol 200 MG/20 ML SDV ONE (07:43)
[2022-10-30] MEDS ORDERED: Ondansetron 4 MG/2 ML SDV ONE (07:43)
[2022-10-30] MEDS ORDERED: Lidocaine 2% 5 ML SDV ONE (07:43)
[2022-10-30] MEDS ORDERED: ceFAZolin 2 GM Vial ONE (08:06)
[2022-10-30 09:29] VITALS: PULSE 70
[2022-10-30 09:54] VITALS: BP 134/81
[2022-10-30] MEDS ORDERED: ceFAZolin 2 GM in Premix Bag 1 BAG IV ONE (12:22)
== END 2022-10-30 09:53 | disposition home or self-care (01) ==
LOC: MW.SDS 06:31
PROVIDERS: ATTEND Surgery
DX: C45.7 Mesothelioma of other sites (principal); K21.9 Gastro-esophageal reflux disease without esophagitis; I10 Essential (primary) hypertension; I25.10 Atherosclerotic heart disease of native coronary artery without angina pectoris; E78.00 Pure hypercholesterolemia, unspecified; Z79.82 Long term (current) use of aspirin; Z79.899 Other long term (current) drug therapy; Z87.891 Personal history of nicotine dependence
CPT/HCPCS: 36561; 71045; 76000; A9270; J0690; J1642; J2405; J2704; J3010; J3490; J7120; J1885

== ENCOUNTER 2024-10-01 09:53 | Emergency (ER) | payer MEDICARE, BC ==
[2024-10-01 10:52] LABS: APPEARANCE,URINE CLEAR; COLOR,URINE YELLOW; GLUCOSE,URINE NEGATIVE (NEGATIVE); KETONES,URINE TRACE mg/dL (NEGATIVE); LEUKOCYTE ESTERASE,URINE NEGATIVE (NEGATIVE); NITRITE,URINE NEGATIVE (NEGATIVE); OCCULT BLOOD,URINE NEGATIVE (NEGATIVE); PROTEIN,URINE 100 mg/dL (NEGATIVE)
[2024-10-01 10:56] LABS: BILIRUBIN,URINE SMALL (NEGATIVE)
[2024-10-01 10:58] LABS: BACTERIA,URINE FEW (NEGATIVE); EPITHELIAL CELLS,URINE RARE (NONE-FEW); RBC,URINE 0-1 (0-2/HPF); WBC,URINE 0-4 (0-5/HPF)
[2024-10-01 11:12] LABS: HEMOGLOBIN 14.2 g/dL (14.0-18.0); MEAN CORPUSCULAR HEMOGLOBIN 28.1 pg (28.0-32.0); MEAN PLATELET VOLUME 9.8 fL (9.4-12.4); PLATELET COUNT,PLT 313 K/uL (150-400); RED BLOOD CELL COUNT 5.06 M/uL (4.52-5.90); WHITE BLOOD CELL COUNT,WBC 24.92 K/uL (3.9-11.3)
[2024-10-01] MEDS: Sodium Chloride 0.9% 1,000 ML IV STA ×3 (11:19→13:44)
[2024-10-01] MEDS: Ondansetron 4 MG/2 ML SDV IVPUSH STA (11:19)
[2024-10-01 11:29] LABS: BAND ABSOLUTE MAN 0.25; BAND PERCENT MAN 1 %; LYMPHOCYTES PERCENT MAN 4 % (24-44); SEG NEUTROPHILS ABSOLUTE MAN 23.67 K/uL (1.80-7.70); SEG NEUTROPHILS PERCENT MAN 95 % (41-71)
[2024-10-01 11:33] LABS: A/G RATIO 0.9 (0.9-1.6); ALBUMIN 3.1 g/dL (3.4-5.0); BILIRUBIN TOTAL 0.8 mg/dL (0.2-1.0); CALCIUM 8.6 mg/dL (8.5-10.1); CARBON DIOXIDE,CO2 26.5 mmol/L (21.0-32.0); CREATININE 1.5 mg/dL (0.8-1.3); EST CRCL DRUG DOSING (CG) 49.1 mL/min; MAGNESIUM 1.9 mg/dL (1.8-2.4); POTASSIUM,K 3.7 mmol/L (3.5-5.1); PROTEIN TOTAL,TP 6.5 g/dL (6.4-8.2)
[2024-10-01] MEDS: Cefepime 2 GM in Sodium Chloride 0.9% 50 ML IV STA (12:52)
[2024-10-01 13:15] LABS: LACTIC ACID 2.2 mmol/L (0.4-2.0)
[2024-10-01] MEDS: Iopamidol 755 MG/ML 500 ML Multipack Bottle IVPUSH STA (14:32)
[2024-10-01 14:33] LABS: PRO B-TYPE NATRIUR PEPT,BNPPRO 696 pg/mL (0-125)
[2024-10-01 14:39] VITALS: BP 143/89; PULSE 88
== END 2024-10-01 15:19 | disposition left against medical advice (07) ==
LOC: MW.ED 09:53
DX: R11.2 Nausea with vomiting, unspecified (principal); T45.1X5A Adverse effect of antineoplastic and immunosuppressive drugs, initial encounter; J96.01 Acute respiratory failure with hypoxia; E87.20 Acidosis, unspecified; D72.829 Elevated white blood cell count, unspecified; C45.9 Mesothelioma, unspecified; R79.89 Other specified abnormal findings of blood chemistry; N17.9 Acute kidney failure, unspecified; N06.9 Isolated proteinuria with unspecified morphologic lesion; I11.0 Hypertensive heart disease with heart failure; I50.9 Heart failure, unspecified; I25.10 Atherosclerotic heart disease of native coronary artery without angina pectoris; E78.00 Pure hypercholesterolemia, unspecified; Z95.5 Presence of coronary angioplasty implant and graft; Z75.8 Other problems related to medical facilities and other health care; Z79.82 Long term (current) use of aspirin; Z79.899 Other long term (current) drug therapy
CPT/HCPCS: 36415; 71275; 74177; 80053; 81001; 83605; 83690; 83735; 83880; 84484; 85025; 87040; 87428; 93005; 96361; 96365; 96375; 99285; J0692; J1642; J2405; J3490; J7030; Q9967

== ENCOUNTER 2024-10-01 21:15 | Inpatient (IN) | payer MEDICARE, BC ==
[2024-10-01 22:06] LABS: HEMATOCRIT 43.3 % (42.0-52.0); HEMOGLOBIN 14.5 g/dL (14.0-18.0); MEAN CORPUSCULAR HGB CONC 33.5 g/dL (32.0-36.0); MEAN CORPUSCULAR VOLUME 83.8 fL (83.0-99.0); MEAN PLATELET VOLUME 10.6 fL (9.4-12.4); PLATELET COUNT,PLT 254 K/uL (150-400); RED BLOOD CELL COUNT 5.17 M/uL (4.52-5.90); WHITE BLOOD CELL COUNT,WBC 7.58 K/uL (3.9-11.3)
[2024-10-01 22:10] LABS: CALCIUM 7.7 mg/dL (8.5-10.1); CARBON DIOXIDE,CO2 24.9 mmol/L (21.0-32.0); CREATININE 1.4 mg/dL (0.8-1.3); EST CRCL DRUG DOSING (CG) 52.6 mL/min; POTASSIUM,K 3.4 mmol/L (3.5-5.1)
[2024-10-01] MEDS: Cefepime 2 GM in Sodium Chloride 0.9% 50 ML IV ONE (22:11)
[2024-10-01] MEDS: Sodium Chloride 0.9% 1,000 ML IV SCH (22:11)
[2024-10-01 22:51] LABS: EOSINOPHILS ABSOLUTE MAN 0.23 K/uL (0.00-0.45); EOSINOPHILS PERCENT MAN 3 % (0-6); LYMPHOCYTES ABSOLUTE MAN 0.99 K/uL (1.00-4.80); LYMPHOCYTES PERCENT MAN 13 % (24-44); MONOCYTES ABSOLUTE MAN 0.68 K/uL (0.00-0.80); MONOCYTES PERCENT MAN 9 % (0-8); SEG NEUTROPHILS ABSOLUTE MAN 5.69 K/uL (1.80-7.70); SEG NEUTROPHILS PERCENT MAN 75 % (41-71)
[2024-10-02 05:38] LABS: HEMATOCRIT 39.5 % (42.0-52.0); HEMOGLOBIN 13.1 g/dL (14.0-18.0); MEAN CORPUSCULAR HGB CONC 33.2 g/dL (32.0-36.0); MEAN CORPUSCULAR VOLUME 84.4 fL (83.0-99.0); MEAN PLATELET VOLUME 9.8 fL (9.4-12.4); PLATELET COUNT,PLT 241 K/uL (150-400); RED BLOOD CELL COUNT 4.68 M/uL (4.52-5.90); WHITE BLOOD CELL COUNT,WBC 7.82 K/uL (3.9-11.3)
[2024-10-02 06:00] LABS: CALCIUM 8.2 mg/dL (8.5-10.1); CARBON DIOXIDE,CO2 25.7 mmol/L (21.0-32.0); CREATININE 1.3 mg/dL (0.8-1.3); EST CRCL DRUG DOSING (CG) 56.65 mL/min; POTASSIUM,K 3.9 mmol/L (3.5-5.1)
[2024-10-02] MEDS: Azithromycin 500 MG in Sodium Chloride 0.9% 250 ML IV SCH (06:01)
[2024-10-02 06:51] LABS: BAND ABSOLUTE MAN 0.31; BAND PERCENT MAN 4 %; BASOPHILS PERCENT MAN 0 % (0-1); EOSINOPHILS ABSOLUTE MAN 0.47 K/uL (0.00-0.45); EOSINOPHILS PERCENT MAN 6 % (0-6); LYMPHOCYTES ABSOLUTE MAN 1.25 K/uL (1.00-4.80); LYMPHOCYTES PERCENT MAN 16 % (24-44); MONOCYTES ABSOLUTE MAN 0.63 K/uL (0.00-0.80); MONOCYTES PERCENT MAN 8 % (0-8); SEG NEUTROPHILS ABSOLUTE MAN 5.16 K/uL (1.80-7.70); SEG NEUTROPHILS PERCENT MAN 66 % (41-71)
[2024-10-02] MEDS: Ondansetron 4 MG/2 ML SDV IVPUSH PRN (10:29)
[2024-10-02] MEDS ORDERED: atorvaSTATin 40 MG Tab PO SCH (10:30)
[2024-10-02] MEDS: Cefepime 2 GM in Sodium Chloride 0.9% 50 ML IV SCH (10:59)
[2024-10-02] MEDS: Aspirin 81 MG Tab.Chew PO SCH (11:00)
[2024-10-02] MEDS: Pantoprazole 40 MG Tab.CR PO SCH (11:00)
[2024-10-02] MEDS: Metoprolol Succinate 50 MG Tab.ER PO SCH (11:01)
[2024-10-02] MEDS: Heparin Sodium 5,000 Units/ML Vial SUBCUT SCH (11:03)
[2024-10-02] MEDS ORDERED: guaiFENesin 600 MG Tab.ER PO PRN (17:32)
[2024-10-02] MEDS ORDERED: Acetaminophen 325 MG Tab PO PRN (21:45)
[2024-10-02] MEDS: Acetaminophen 325 MG Tab PO PRN (22:43)
[2024-10-02] MEDS: Tiotropium Bromide 4 GM Inhalation Spray (2.5mcg/1 dose; 10 doses) INH SCH (22:45)
[2024-10-03 05:23] LABS: HEMATOCRIT 36.5 % (42.0-52.0); HEMOGLOBIN 12.2 g/dL (14.0-18.0); MEAN CORPUSCULAR HEMOGLOBIN 28.1 pg (28.0-32.0); MEAN CORPUSCULAR HGB CONC 33.4 g/dL (32.0-36.0); MEAN CORPUSCULAR VOLUME 84.1 fL (83.0-99.0); MEAN PLATELET VOLUME 10.1 fL (9.4-12.4); PLATELET COUNT,PLT 174 K/uL (150-400); RED BLOOD CELL COUNT 4.34 M/uL (4.52-5.90); WHITE BLOOD CELL COUNT,WBC 7.58 K/uL (3.9-11.3)
[2024-10-03 05:49] LABS: A/G RATIO 0.8 (0.9-1.6); ALBUMIN 2.6 g/dL (3.4-5.0); BILIRUBIN TOTAL 0.9 mg/dL (0.2-1.0); CREATININE 1.5 mg/dL (0.8-1.3); EST CRCL DRUG DOSING (CG) 49.1 mL/min; MAGNESIUM 1.7 mg/dL (1.8-2.4); PHOSPHORUS 3.1 mg/dL (2.6-4.7); POTASSIUM,K 3.7 mmol/L (3.5-5.1); PROTEIN TOTAL,TP 5.9 g/dL (6.4-8.2)
[2024-10-03 06:09] LABS: BAND ABSOLUTE MAN 0.23; BAND PERCENT MAN 3 %; LYMPHOCYTES ABSOLUTE MAN 1.74 K/uL (1.00-4.80); LYMPHOCYTES PERCENT MAN 23 % (24-44); SEG NEUTROPHILS PERCENT MAN 62 % (41-71)
[2024-10-03 06:10] LABS: EOSINOPHILS ABSOLUTE MAN 0.38 K/uL (0.00-0.45); EOSINOPHILS PERCENT MAN 5 % (0-6); MONOCYTES ABSOLUTE MAN 0.53 K/uL (0.00-0.80); MONOCYTES PERCENT MAN 7 % (0-8)
[2024-10-03] MEDS ORDERED: Calcium Carbonate 500 MG Tab.Chew PO PRN (09:01)
[2024-10-03] MEDS: Calcium Carbonate 500 MG Tab.Chew PO ONE (10:02)
[2024-10-03 11:10] VITALS: PULSE 80
[2024-10-03 11:13] VITALS: BP 108/56
== END 2024-10-03 14:40 | disposition home or self-care (01) | DRG 189 ==
LOC: MW.ED 21:15 → MW.MS 10-02 00:16
PROVIDERS: ADMIT Internal Medicine; ATTEND Internal Medicine
DX: R09.02 Hypoxemia (principal); J96.01 Acute respiratory failure with hypoxia; C45.0 Mesothelioma of pleura; N17.9 Acute kidney failure, unspecified; I10 Essential (primary) hypertension; I25.10 Atherosclerotic heart disease of native coronary artery without angina pectoris; E78.00 Pure hypercholesterolemia, unspecified; K59.09 Other constipation; K21.9 Gastro-esophageal reflux disease without esophagitis; H91.90 Unspecified hearing loss, unspecified ear; H54.7 Unspecified visual loss; R11.2 Nausea with vomiting, unspecified; T45.1X5A Adverse effect of antineoplastic and immunosuppressive drugs, initial encounter; E86.0 Dehydration; Z95.828 Presence of other vascular implants and grafts; Z79.899 Other long term (current) drug therapy; Z79.82 Long term (current) use of aspirin; Z95.5 Presence of coronary angioplasty implant and graft; Z86.0100 Personal history of colon polyps, unspecified; Z87.81 Personal history of (healed) traumatic fracture; Z98.890 Other specified postprocedural states
CPT/HCPCS: 36415; 80048; 83605; 85025; 96365; 99285; J0692; J3490; J7030; 80053; 83735; 84100; A9270-GY; J0456; J1642; J1644; J2405; J7050

== ENCOUNTER 2024-11-12 21:37 | Emergency (ER) | payer MEDICARE, BC | END 2024-11-12 21:51 | disposition left against medical advice (07) | LOC: MW.ED 21:37 | DX: Z53.21 Procedure and treatment not carried out due to patient leaving prior to being seen by health care provider (principal) ==

== ENCOUNTER 2024-12-11 17:09 | Emergency (ER) | payer MEDICARE, BC ==
[2024-12-11 19:01] LABS: BASOPHILS ABSOLUTE AUTO 0.05 K/uL (0.00-0.20); BASOPHILS PERCENT AUTO 0.4 % (0.0-1.0); EOSINOPHILS PERCENT AUTO 1.6 % (0.0-6.0); HEMATOCRIT 35.1 % (42.0-52.0); HEMOGLOBIN 11.9 g/dL (14.0-18.0); IMMATURE GRAN ABSOLUTE AUTO 0.04 K/uL (0.00-0.05); IMMATURE GRAN PERCENT AUTO 0.3 % (0.0-0.4); LYMPHOCYTES PERCENT AUTO 24.8 % (24.0-44.0); MEAN CORPUSCULAR HEMOGLOBIN 29.5 pg (28.0-32.0); MEAN CORPUSCULAR HGB CONC 33.9 g/dL (32.0-36.0); MEAN CORPUSCULAR VOLUME 87.1 fL (83.0-99.0); MEAN PLATELET VOLUME 8.9 fL (9.4-12.4); MONOCYTES PERCENT AUTO 3.9 % (0.0-8.0); PLATELET COUNT,PLT 454 K/uL (150-400); RED BLOOD CELL COUNT 4.03 M/uL (4.52-5.90); WHITE BLOOD CELL COUNT,WBC 12.89 K/uL (3.9-11.3)
[2024-12-11 19:15] LABS: INR 1.05 (0.86-1.11)
[2024-12-11 19:37] LABS: A/G RATIO 0.7 (0.9-1.6); ALBUMIN 2.6 g/dL (3.4-5.0); BILIRUBIN TOTAL 0.4 mg/dL (0.2-1.0); CALCIUM 9.5 mg/dL (8.5-10.1); CARBON DIOXIDE,CO2 27.9 mmol/L (21.0-32.0); CREATININE 1.5 mg/dL (0.8-1.3); EST CRCL DRUG DOSING (CG) 48.44 mL/min; MAGNESIUM 1.7 mg/dL (1.8-2.4); POTASSIUM,K 4.4 mmol/L (3.5-5.1); PROTEIN TOTAL,TP 6.5 g/dL (6.4-8.2)
[2024-12-11] MEDS: Sodium Chloride 0.9% 500 ML IV ONE (19:52)
[2024-12-11] MEDS: Magnesium Oxide 400 MG Tab PO ONE (19:54)
[2024-12-11] MEDS: Iopamidol 755 MG/ML 500 ML Multipack Bottle IVPUSH ONE (20:30)
[2024-12-11 21:34] LABS: APPEARANCE,URINE CLEAR; BILIRUBIN,URINE NEGATIVE (NEGATIVE); COLOR,URINE YELLOW; GLUCOSE,URINE NEGATIVE (NEGATIVE); KETONES,URINE NEGATIVE (NEGATIVE); LEUKOCYTE ESTERASE,URINE NEGATIVE (NEGATIVE); NITRITE,URINE NEGATIVE (NEGATIVE); OCCULT BLOOD,URINE NEGATIVE (NEGATIVE); PH,URINE 5.5 (5.0-8.0); PROTEIN,URINE NEGATIVE (NEGATIVE); UROBILINOGEN,URINE 0.2 EU/dL (<2.0)
[2024-12-11 22:36] VITALS: BP 115/63; PULSE 62
== END 2024-12-11 22:07 | disposition home or self-care (01) ==
LOC: MW.ED 17:09
DX: C45.9 Mesothelioma, unspecified (principal); R06.02 Shortness of breath; R55 Syncope and collapse; I25.10 Atherosclerotic heart disease of native coronary artery without angina pectoris; I10 Essential (primary) hypertension; E78.00 Pure hypercholesterolemia, unspecified; K21.9 Gastro-esophageal reflux disease without esophagitis; Z95.5 Presence of coronary angioplasty implant and graft; Z79.82 Long term (current) use of aspirin; Z79.899 Other long term (current) drug therapy
CPT/HCPCS: 36415; 71045; 71275; 80053; 81003; 83735; 83880; 84484; 85025; 85610; 93005; 96360; 99285; A9270; J7030; Q9967; 93010; 99284

== ENCOUNTER 2025-03-11 14:01 | Emergency (ER) | payer MEDICARE, BC ==
[2025-03-11 14:48] LABS: MEAN PLATELET VOLUME 8.8 fL (9.4-12.4); NRBC ABSOLUTE 0.02 K/uL (0.00-0.02); NRBC PERCENT 0.1 /100WBC (0.0-0.2); PLATELET COUNT,PLT 709 K/uL (150-400); RED BLOOD CELL COUNT 3.79 M/uL (4.52-5.90); WHITE BLOOD CELL COUNT,WBC 14.32 K/uL (3.9-11.3)
[2025-03-11 14:56] LABS: INR 1.11 (0.86-1.11)
[2025-03-11 15:01] LABS: BAND ABSOLUTE MAN 0.29; BAND PERCENT MAN 2 %; BASOPHILS ABSOLUTE MAN 0.29 K/uL (0.00-0.20); BASOPHILS PERCENT MAN 2 % (0-1); LYMPHOCYTES ABSOLUTE MAN 1.29 K/uL (1.00-4.80); LYMPHOCYTES PERCENT MAN 9 % (24-44); MONOCYTES ABSOLUTE MAN 4.44 K/uL (0.00-0.80); MONOCYTES PERCENT MAN 31 % (0-8); SEG NEUTROPHILS ABSOLUTE MAN 8.02 K/uL (1.80-7.70); SEG NEUTROPHILS PERCENT MAN 56 % (41-71)
[2025-03-11 15:03] LABS: PHOSPHORUS 3.3 mg/dL (2.6-4.7)
[2025-03-11 15:16] LABS: A/G RATIO 0.4 (0.9-1.6); ALANINE AMINOTRANSFERASE,ALT 15.0 IU/L (14-63); BILIRUBIN TOTAL 0.4 mg/dL (0.2-1.0); BLOOD UREA NITROGEN,BUN 18.0 mg/dL (7.0-18.0); CARBON DIOXIDE,CO2 28.9 mmol/L (21.0-32.0); CHLORIDE,CL 97.0 mmol/L (98-107); CREATININE 1.2 mg/dL (0.8-1.3); EST CRCL DRUG DOSING (CG) 60.55 mL/min; GLUCOSE RANDOM 99.0 mg/dL (74-106); POTASSIUM,K 4.2 mmol/L (3.5-5.1); PROTEIN TOTAL,TP 6.5 g/dL (6.4-8.2); SODIUM,NA 132.0 mmol/L (136-148)
[2025-03-11 15:33] LABS: LACTIC ACID 1.6 mmol/L (0.4-2.0)
[2025-03-11 15:42] LABS: ESTIMATED GFR 67.0 mL/min (>60)
[2025-03-11 15:44] LABS: ASPARTATE AMNIOTRANSFERASE,AST 23.0 IU/L (15-37)
[2025-03-11] MEDS: Magnesium Sulfate 2 GM/50 mL 2 GM in Premix Bag 1 BAG IV ONE (15:45)
[2025-03-11] MEDS: Iopamidol 755 MG/ML 500 ML Multipack Bottle IVPUSH STA (16:26)
[2025-03-11 17:40] VITALS: BP 131/76; PULSE 92
[2025-03-11] MEDS: fentaNYL 50 MCG/ML SDV IVPUSH ONE (18:00)
== END 2025-03-11 19:05 ==
LOC: MW.ED 14:01
DX: C45.9 Mesothelioma, unspecified (principal); E83.42 Hypomagnesemia; R09.02 Hypoxemia
CPT/HCPCS: 36415; 71275; 80053; 83605; 83735; 84100; 84484; 85025; 85610; 96365; 96375; 99285; J3010; J3475; J7030; Q9967